=== PATIENT | female | born 1955 | race African-American/Black ===

== ENCOUNTER 2017-06-16 10:03 | Emergency (ER) | payer OTHER ==
[2017-06-16 11:14] LABS: Bilirubin Negative (Negative); Blood, Urine Negative (Negative); Clarity CLOUDY (Clear); Glucose, Urine (Dipstick) Negative (Negative); Leukocyte Large (Negative); Nitrite Negative (Negative); Protein, Urine (Dipstick) Negative (Neg-Trace); Specific Gravity, Urine 1.017 (1.002-1.036); pH, Urine 7.5 (5.0-9.0)
[2017-06-16 11:24] LABS: Bacteria/HPF 2+ HPF (None Seen); Hyaline Casts/LPF 0-3 HYALINE CAST LPF (0-3 Hyaline); Pathc Cast-AUWi Flag 0.94 (0-2.49); RBC/HPF 0-3 HPF (0-3)
[2017-06-16] MEDS ORDERED: Cyclobenzaprine 10 MG TAB ONE (12:25)
== END 2017-06-16 13:20 | disposition home or self-care (01) ==
LOC: ERS 10:03
DX: N39.0 Urinary tract infection, site not specified (principal); G89.29 Other chronic pain; M54.5 Low back pain; E11.9 Type 2 diabetes mellitus without complications; I10 Essential (primary) hypertension; J45.909 Unspecified asthma, uncomplicated; F32.9 Major depressive disorder, single episode, unspecified
CPT/HCPCS: 81003; 81015; 96372; J2270

== ENCOUNTER 2017-08-14 08:12 | Inpatient (IN) | payer OTHER ==
[2017-08-14 09:32] LABS: #Basophils 0.1 thou/uL (0.0-0.2); #Eosinphils 0.1 thou/uL (0.0-0.7); #Lymphocytes 1.9 thou/uL (1.20-3.40); #Monocytes 2.5 thou/uL (0.11-0.59); #Neutrophils 13.3 thou/uL (1.40-6.50); %Basophils 0.3 % (0.0-1.0); %Eosinophils 0.3 % (0.0-10.0); %Lymphocytes 10.6 % (21.0-51.0); %Monocytes 13.9 % (0.0-10.0); %Neutrophils 74.9 % (42.0-75.0); Mean Corpuscular Hemoglobin 31.8 pg (27.0-31.0); Mean Corpuscular Volume 96.3 fl (81.0-99.0); Mean Platelet Volume 8.7 fL (7.4-10.4); Platelet Count 229 thou/uL (130-400); RBC Distribution Width 11.5 % (11.5-14.5); Red Blood Cell (RBC) Count 3.77 mill/uL (4.20-5.40); White Blood Cell (WBC) Count 17.7 thou/uL (4.8-10.8)
[2017-08-14 09:52] LABS: ALT (SGPT) 16 U/L (8-55); AST (SGOT) 27 U/L (5-34); Albumin 4.2 g/dL (3.4-4.8); Alkaline Phosphatase 95 U/L (40-150); Anion Gap 13 mmol/L (10-20); BUN (Urea Nitrogen) 11 mg/dL (9.8-20.1); Bilirubin, Total 1.2 mg/dL (0.2-1.2); Calc. Creatinine Clearance 0 mL/min (70-130); Calcium 9.8 mg/dL (7.8-10.44); Carbon Dioxide 20 mmol/L (23-31); Chloride 108 mmol/L (98-107); Estimated GFR-MDRD 84; Globulin 3.2 g/dL (2.4-3.5); Glucose 187 mg/dL (80-115); Potassium 3.5 mmol/L (3.5-5.1); Protein, Total 7.4 g/dL (6.0-8.3); Sodium 137 mmol/L (136-145)
--- NOTE | 2017-08-14 10:37 | ULT ---
ULTRASOUND WITH DOPPLER DUPLEX VENOUS LOWER EXTREMITY LEFT: DATE: 08/14/2017 HISTORY: A 62-year-old female with left lower extremity pain for one day. TECHNIQUE: Color flow Doppler, spectral waveform analysis of pulsed Doppler, and jarrell-scale imaging with samantha dario and augmentation were used to evaluate the left common femoral, femoral, popliteal, posterior ti bial, and superficial femoral, veins, and the proximal portions of the profunda femoral and greater s aphenous veins. FINDINGS: There is normal compressibility, demonstration of blood flow by color Doppler and pulsed Doppler, and response to augmentation, in all interrogated veins. IMPRESSION: Negative. No deep vein thrombosis in the left lower extremity. jm[] POS: [facility]
[2017-08-14] MEDS ORDERED: Morphine 4 MG/ML VIAL ONE (10:50)
[2017-08-14] MEDS ORDERED: Clindamycin/D5W 600 mg/50 ml Premix Bag ONE (10:50)
--- NOTE | 2017-08-14 10:55 | RAD ---
LEFT ANKLE 3 VIEWS: HISTORY: Pain. COMPARISON: None. FINDINGS: No fracture. No malalignment. Mild lateral malleolar edema. IMPRESSION: No acute fracture or malalignment. POS: [facility]
[2017-08-14] MEDS ORDERED: Ondansetron ODT 4 MG TAB SL PRN (13:20)
[2017-08-14] MEDS ORDERED: Ondansetron HCl/PF 4 MG/2 ML Vial IVP PRN (13:20)
[2017-08-14] MEDS ORDERED: HYDROcodone/Acetaminophen 5/325 mg Tablet PO PRN (13:21)
[2017-08-14 13:47] VITALS: BMI 21.2
[2017-08-14] MEDS: Sodium Chloride 0.9% 1,000 ML IV SCH (15:28)
[2017-08-14] MEDS: Ketorolac Tromethamine 30 MG/ML VIAL IVP SCH ×2 (15:42→23:44)
--- NOTE | 2017-08-14 15:48 | HP ---
REASON FOR ADMISSION: Left ankle pain. HISTORY OF PRESENT ILLNESS: This is a pleasant female with history of multiple medical problems to i nclude multiple knee surgeries in the past as well as hypertension, hyperlipidemia, and diabetes. She presents with a 2-day history of left ankle pain and swelling. She presented in the emergency ro om where she could barely walk. She did have a CBC which revealed a white blood cell of 18,000. Her x-ray was unremarkable. For this reason, she was felt she needed to be admitted for IV antibiotic t reatment. She denies any chest, arm or back pain. She also denies any PND, orthopnea or palpitations. PAST MEDICAL HISTORY: 1. Hypertension. 2. Hyperlipidemia. 3. NIDDM. 4. Chronic back pain. 5. Chronic knee pain. 6. Herniated disk. 7. Asthma. 8. Anxiety. 9. History of chronic sinusitis and bronchitis. 10. Depression. PAST SURGICAL HISTORY: 1. Right knee surgery with numerous scopes to that knee. 2. Hysterectomy. 3. Cholecystectomy. 4. Back surgery. ALLERGIES: PENICILLIN. MEDICATIONS: None. FAMILY HISTORY: Noncontributory. SOCIAL HISTORY: She is an ex-smoker. She does not drink alcohol. She is not . REVIEW of SYSTEM: GENERAL: Admits to weakness, fatigue. No fever or chills. HEENT: No diplopia, amaurosis fugax, tinnitus, sore throat, or hoarseness. Cardiovascular: No chest, arm, or back pain. Pulmonary: No PE, cough, or hemoptysis. GI: No GI bleed, constipation, diarrhea. Genitourinary: No dysuria, nocturia, oliguria, or polyuria. Endocrine: No polyphagia, polydipsia, or heat or col d intolerance. Musculoskeletal: Admits to arthralgias, especially in the knee and ankle. No lympha denopathy. Neurologic: No history of TIA or seizure. All systems are negative. PHYSICAL EXAMINATION: GENERAL: Pleasant female who appears to be in acute distress. VITAL SIGNS: Her blood pressure is 150/70, pulse 80, respiration rate 18. She is afebrile. NECK: Supple with no increased JVP or carotid bruit. Carotid had good upstroke with no thyromegaly. COR: Regular rate and rhythm. CHEST: Symmetrical. Clear to auscultation and percussion. ABDOMEN: Soft, nontender with normoactive bowel sounds. No bruit. EXTREMITIES: No edema or cyanosis. Palpable pedal pulses. SKIN: There is no evidence of ulceration, lesion, or rash. Her left ankle is red and swollen. It i s warm to touch. NEUROLOGIC: She is awake, alert, and oriented to person, place, and time. LABORATORY DATA: White blood cells 17.7, H&H is 12.0 and 36.4, platelet 229, glucose 180. C-reactiv e protein is 9.33. X-ray normal. ASSESSMENT: 1. Left ankle cellulitis. 2. Diabetes. 3. Hypertension. 4. Hyperlipidemia. 5. Chronic back pain. PLAN: 1. The patient will be admitted where antibiotics will be continued. We will also ask Ortho to see the patient in consultation. 2. We will resume home medications once we would like what they are. 3. We will check blood sugars a.c. and at bedtime and use sliding scale per protocol. 4. Pain medication has already been ordered and will follow up with lab in the morning. This is ZELALEM Pelayo-Shanika dictating for Dr. Kota Aguilar.
--- NOTE | 2017-08-14 16:10 | RAD ---
2 VIEWS CHEST: Date: 08/14/17 COMPARISON: 11/18/16. HISTORY: Bronchitis. FINDINGS: Normal cardiac silhouette. There is atherosclerosis of the ascending thoracic aorta. Pulmonary vessel s and hilum are normal. Right lung and costophrenic angle clear. Obscuration of lateral left hemidiap hragm. Additional increased opacity in the posterior left hemithorax on the lateral projection. Multi lobar pneumonia suspected. No pneumothorax. IMPRESSION: Multilobar pneumonia involving the lingula and left lower lobe. POS: [facility]
[2017-08-14] MEDS ORDERED: hydrOXYzine 25 MG TAB PO PRN (19:52)
[2017-08-14 19:53] LABS: Bilirubin Small (Negative); Blood, Urine Negative (Negative); Clarity CLOUDY (Clear); Glucose, Urine (Dipstick) Negative (Negative); Leukocyte Small (Negative); Nitrite Negative (Negative); Protein, Urine (Dipstick) Negative (Neg-Trace); Specific Gravity, Urine 1.023 (1.002-1.036); pH, Urine 5.5 (5.0-9.0)
[2017-08-14 19:55] LABS: Bacteria/HPF 1+ HPF (None Seen)
[2017-08-14] MEDS ORDERED: Dextrose 50% Abboject 50 ML SYRINGE IVP PRN (19:58)
[2017-08-14] MEDS ORDERED: Insulin Regular 300 UNITS/3 ML VIAL SC PRN (19:58)
[2017-08-14] MEDS ORDERED: Dextrose 5% in Water 1,000 ML IV PRN (19:58)
[2017-08-14 20:12] LABS: Pathc Cast-AUWi Flag 3.92 (0-2.49)
[2017-08-14 20:20] LABS: Hyaline Casts/LPF 4-6 HYALINE CAST LPF (0-3 Hyaline); Other Casts/LPF None Seen LPF (0-3 Hyaline)
--- NOTE | 2017-08-14 20:56 | CON ---
DATE OF CONSULTATION: 08/14/2017 CHIEF COMPLAINT: Ankle pain. HISTORY OF PRESENT ILLNESS: Ms. Sun is a 62-year-old female. She has been moving from a [place]sta [place] apartment to an upstairs apartment. She has been going up and down the stairs and lifting boxes, etc. She began developing pain in her foot and ankle yesterday. This worsened through the day. Morenita rosario woke up somewhat better today, but still having pain. She presented to the emergency department. She has also been treated recently for a lung infection with an oral antibiotic. She complains of in continence and urinary frequency as well. This has not been treated. Her ankle, she noticed was swo llen and somewhat red. She denies any fevers or chills. PAST MEDICAL HISTORY: Positive for chronic pain, herniated disk, degenerative disk disease, osteoart hritis, hypertension, asthma. PAST SURGICAL HISTORY: Hysterectomy, previous right total knee arthroplasty, previous lumbar back mckinnon rgery. PSYCHIATRIC HISTORY: Includes depression. SOCIAL HISTORY: The patient denies alcohol use. She denies tobacco or drug use. Family is with her at the bedside. REVIEW OF SYSTEMS: Positive for left ankle pain, otherwise negative. PHYSICAL EXAMINATION: VITAL SIGNS: Stable. Blood pressure is 184/76, pulse is 78, oxygen saturation 99%, respiratory 18, temperature is 97.1. GENERAL: She is lying supine, alert, talkative, no apparent distress. RESPIRATORY: Breathing comfortably. ABDOMEN: Soft, nontender. MUSCULOSKELETAL: The patient's left lower extremity has faint erythema. There is faint warmth. She is able to flex and extend the ankle without significant difficulty. She has pain to palpation over the posterior and lateral aspect of the ankle. There is mild edema near the retrocalcaneal bursa. She has intact sensation, palpable pulse. Two second capillary refill. LABORATORY DATA: Her ESR is 34. Her white blood cell count is elevated at 17.7. CRP was 9.33. IMAGES: Ankle x-rays are negative for acute findings. IMPRESSION: Ankle pain with an elevated white blood cell count. PLAN: At this point, the patient's ankle condition appears to be an Achilles insertional tendinitis or retrocalcaneal bursitis. I think this is from overuse likely from climbing stairs and moving boxe s. She has a white blood cell count, which is elevated, but this could be from her pulmonary source or a urinary tract infection. She will need further workup including chest x-ray as well as urinalys is. We will order Toradol to treat her tendinitis. If this does not help or she worsens as possible her ankle does have an infection, we will continue to follow and check her progress tomorrow.
[2017-08-14] MEDS: cefTRIAXone\\ROCEPHIN 1 GM, Syringe 0.4 ML in Sterile Water 9.6 ML SLOW IVP SCH (21:26)
[2017-08-14] MEDS: Insulin Detemir 100 UNITS/ML 30 UNITS in Pre-Filled Syringe 1 EACH SC SCH (21:27)
[2017-08-14] MEDS: HYDROcodone/Acetaminophen 5/325 mg Tablet PO PRN (21:28)
[2017-08-14] MEDS: Amitriptyline HCl 25 MG TAB PO SCH (21:29)
[2017-08-14] MEDS: Cyclobenzaprine 10 MG TAB PO SCH (21:29)
[2017-08-14] MEDS: cloNIDine 0.1 MG TAB PO SCH (21:30)
[2017-08-14] MEDS: Promethazine HCl 6.25 MG/5 ML Syrup PO PRN (22:19)
[2017-08-14] MEDS: Azithromycin 500 MG in Sodium Chloride 0.9% 250 ML 250 ML IVPB SCH (22:20)
[2017-08-15] MEDS: Sodium Chloride 0.9% 1,000 ML IV SCH (00:28)
[2017-08-15 04:46] LABS: #Eosinphils 0.1 thou/uL (0.0-0.7); #Lymphocytes 2.2 thou/uL (1.20-3.40); #Monocytes 1.7 thou/uL (0.11-0.59); #Neutrophils 7.4 thou/uL (1.40-6.50); %Basophils 0.4 % (0.0-1.0); %Eosinophils 0.8 % (0.0-10.0); %Lymphocytes 18.9 % (21.0-51.0); %Monocytes 14.5 % (0.0-10.0); %Neutrophils 65.4 % (42.0-75.0); Hemoglobin 10.9 g/dL (12.0-16.0); Mean Corpuscular HGB CONC 32.9 g/dL (32.0-36.0); Mean Corpuscular Hemoglobin 31.7 pg (27.0-31.0); Mean Corpuscular Volume 96.5 fl (81.0-99.0); Mean Platelet Volume 8.7 fL (7.4-10.4); Platelet Count 200 thou/uL (130-400); RBC Distribution Width 11.5 % (11.5-14.5); Red Blood Cell (RBC) Count 3.43 mill/uL (4.20-5.40); White Blood Cell (WBC) Count 11.4 thou/uL (4.8-10.8)
[2017-08-15] MEDS: cloNIDine 0.1 MG TAB PO SCH (05:00)
[2017-08-15] MEDS: Ketorolac Tromethamine 30 MG/ML VIAL IVP SCH ×2 (05:01→12:22)
[2017-08-15 05:15] LABS: ALT (SGPT) 30 U/L (8-55); AST (SGOT) 38 U/L (5-34); Albumin 3.4 g/dL (3.4-4.8); Alkaline Phosphatase 118 U/L (40-150); Anion Gap 10 mmol/L (10-20); BUN (Urea Nitrogen) 8 mg/dL (9.8-20.1); Bilirubin, Total 0.5 mg/dL (0.2-1.2); Calc. Creatinine Clearance 93 mL/min (70-130); Calcium 9.2 mg/dL (7.8-10.44); Carbon Dioxide 22 mmol/L (23-31); Chloride 114 mmol/L (98-107); Estimated GFR-MDRD Greater than 90; Globulin 2.7 g/dL (2.4-3.5); Glucose 75 mg/dL (80-115); Potassium 3.8 mmol/L (3.5-5.1); Protein, Total 6.1 g/dL (6.0-8.3); Sodium 142 mmol/L (136-145)
[2017-08-15] MEDS ORDERED: Benzonatate 100 MG CAP PO PRN (07:41)
[2017-08-15] MEDS: LUBIPROSTONE 24 MCG PO SCH ×2 (09:23→16:44)
[2017-08-15] MEDS: cloNIDine 0.2 MG TAB PO SCH ×2 (09:24→21:38)
[2017-08-15] MEDS: guaiFENesin ER 600 MG TAB PO SCH ×2 (09:24→21:39)
[2017-08-15] MEDS: Alogliptin 25 MG TAB PO SCH (09:26)
[2017-08-15] MEDS: Zolpidem Tartrate 5 MG TAB PO SCH (21:35)
[2017-08-15] MEDS: HYDROcodone/Acetaminophen 5/325 mg Tablet PO PRN (21:35)
[2017-08-15] MEDS: Amitriptyline HCl 25 MG TAB PO SCH (21:40)
[2017-08-15] MEDS: Cyclobenzaprine 10 MG TAB PO SCH (21:40)
[2017-08-15] MEDS: cefTRIAXone\\ROCEPHIN 1 GM, Syringe 0.4 ML in Sterile Water 9.6 ML SLOW IVP SCH (21:41)
[2017-08-15] MEDS: Insulin Detemir 100 UNITS/ML 30 UNITS in Pre-Filled Syringe 1 EACH SC SCH (21:41)
[2017-08-15] MEDS: Azithromycin 500 MG in Sodium Chloride 0.9% 250 ML 250 ML IVPB SCH (21:41)
[2017-08-16 05:51] LABS: #Eosinphils 0.1 thou/uL (0.0-0.7); #Lymphocytes 2.5 thou/uL (1.20-3.40); #Monocytes 1.3 thou/uL (0.11-0.59); #Neutrophils 6.4 thou/uL (1.40-6.50); %Basophils 0.2 % (0.0-1.0); %Lymphocytes 24.2 % (21.0-51.0); %Monocytes 12.7 % (0.0-10.0); %Neutrophils 61.8 % (42.0-75.0); Hemoglobin 10.4 g/dL (12.0-16.0); Mean Corpuscular HGB CONC 32.6 g/dL (32.0-36.0); Mean Corpuscular Hemoglobin 31.2 pg (27.0-31.0); Mean Corpuscular Volume 95.7 fl (81.0-99.0); Mean Platelet Volume 8.4 fL (7.4-10.4); Platelet Count 232 thou/uL (130-400); RBC Distribution Width 11.5 % (11.5-14.5); Red Blood Cell (RBC) Count 3.33 mill/uL (4.20-5.40); White Blood Cell (WBC) Count 10.3 thou/uL (4.8-10.8)
[2017-08-16 06:06] LABS: Anion Gap 9 mmol/L (10-20); BUN (Urea Nitrogen) 10 mg/dL (9.8-20.1); Calc. Creatinine Clearance 99 mL/min (70-130); Calcium 9.4 mg/dL (7.8-10.44); Carbon Dioxide 22 mmol/L (23-31); Chloride 114 mmol/L (98-107); Estimated GFR-MDRD Greater than 90; Glucose 91 mg/dL (80-115); Potassium 3.9 mmol/L (3.5-5.1); Sodium 141 mmol/L (136-145)
[2017-08-16] MEDS: cloNIDine 0.2 MG TAB PO SCH ×2 (08:56→20:46)
[2017-08-16] MEDS: guaiFENesin ER 600 MG TAB PO SCH ×2 (08:56→20:46)
[2017-08-16] MEDS: Alogliptin 25 MG TAB PO SCH (08:57)
[2017-08-16] MEDS: LUBIPROSTONE 24 MCG PO SCH ×2 (08:57→17:06)
[2017-08-16] MEDS: HYDROcodone/Acetaminophen 5/325 mg Tablet PO PRN ×2 (09:01→20:48)
--- NOTE | 2017-08-16 09:23 | PRG ---
DATE OF SERVICE: 08/16/2017 SUBJECTIVE: The patient had a good night; however, her left knee is causing her a lot of problems. She is known to have a history of degenerative joint disease in both knees. The patient still has a barking cough. OBJECTIVE: VITAL SIGNS: Blood pressure is 195/87, this is before blood pressure medication; pulse is 63. She i s afebrile. NECK: Supple. No JVP or carotid bruit. Carotid had good upstroke, no thyromegaly. COR: Regular rhythm. CHEST: Symmetrical. Clear to auscultation and percussion in the upper lobes. Scattered crackles an d wheezing in the lower lobes. ABDOMEN: Soft, nontender, normoactive bowel sounds. No bruit or organomegaly. EXTREMITIES: She had a left knee is swollen and tender. Her left ankle is still red and tender. NEUROLOGIC: She is awake, alert, and oriented to person, place, and time. ASSESSMENT: 1. Left ankle cellulitis. 2. Pneumonia. 3. Urinary tract infection. 4. Hypertension. 5. Multiple medical problems. PLAN: We will continue same current medication regime until cultures are back. We will order left k nee x-ray. We will get out of bed with assist. We will ask Physical Therapy to see the patient in c onsultation. We will change IV fluid rate to 50 mL an hour as well. The patient verbalized understa nding and all questions answered to satisfaction.
[2017-08-16] MEDS: Nebivolol HCl 5 MG TAB PO SCH (10:43)
--- NOTE | 2017-08-16 15:25 | RAD ---
LEFT KNEE: Date: 08/16/17 COMPARISON: None. HISTORY: Left knee pain. FINDINGS: Three views of the left knee provided. There is enthesophyte formation at the insertion of the julita ceps tendon. No knee joint effusion, fracture, or dislocation seen. IMPRESSION: No acute osseous abnormality. POS: [facility]
[2017-08-16] MEDS: cloNIDine 0.1 MG TAB PO PRN (17:26)
[2017-08-16] MEDS: Azithromycin 500 MG in Sodium Chloride 0.9% 250 ML 250 ML IVPB SCH (20:45)
[2017-08-16] MEDS: Insulin Detemir 100 UNITS/ML 30 UNITS in Pre-Filled Syringe 1 EACH SC SCH (20:45)
[2017-08-16] MEDS: cefTRIAXone\\ROCEPHIN 1 GM, Syringe 0.4 ML in Sterile Water 9.6 ML SLOW IVP SCH (20:45)
[2017-08-16] MEDS: Cyclobenzaprine 10 MG TAB PO SCH (20:47)
[2017-08-16] MEDS: Amitriptyline HCl 25 MG TAB PO SCH (20:47)
[2017-08-16] MEDS: Zolpidem Tartrate 5 MG TAB PO SCH (20:48)
[2017-08-17] MEDS: Nebivolol HCl 5 MG TAB PO SCH (08:09)
[2017-08-17] MEDS: LUBIPROSTONE 24 MCG PO SCH ×2 (08:10→16:24)
[2017-08-17] MEDS: cloNIDine 0.2 MG TAB PO SCH ×2 (08:10→20:24)
[2017-08-17] MEDS: Azithromycin 250 MG TAB PO SCH (08:10)
[2017-08-17] MEDS: Sulfameth/Trimethoprim DS 800-160mg TAB PO SCH ×2 (08:11→20:21)
[2017-08-17] MEDS: Alogliptin 25 MG TAB PO SCH (08:11)
[2017-08-17] MEDS: guaiFENesin ER 600 MG TAB PO SCH ×2 (08:11→20:23)
[2017-08-17] MEDS: Promethazine HCl 6.25 MG/5 ML Syrup PO PRN (08:14)
[2017-08-17] MEDS: HYDROcodone/Acetaminophen 5/325 mg Tablet PO PRN ×2 (10:06→22:42)
--- NOTE | 2017-08-17 12:49 | PRG ---
DATE OF SERVICE: 08/17/2017 This is ISAC Pelayo dictating a progress note for Kota Aguilar M.D. The patient had a good night. Unfortunately, she is very upset this morning. Her IV was bad and rica se took it out. The nurse called me last night and stated that the patient refused an IV. However, when talking to the patient this morning, she said that was a total lie. She did not refuse an IV an d the nurse never came back in her room. The patient is stable to go home. Her urine culture is nor mal. Her blood culture is normal. She has no fever. Her white blood cell count is normal. Her blo od pressure is 150 after given her morning medications. Her lungs sound better. However, the patien t is adamant she is not going home. I have explained to her that insurance may not be paying for her to stay one more night. She says she does not care and she was going to stay. I did relay this mes elida onto the charge nurse. The charge nurse will get hold of pillowcase turner and go from there. In the meantime, we will continue the same p.o. medications and wait to hear from the nurse or atomic physics professor.
[2017-08-17] MEDS: cloNIDine 0.1 MG TAB PO PRN ×2 (16:24→23:46)
[2017-08-17] MEDS: Zolpidem Tartrate 5 MG TAB PO SCH (20:21)
[2017-08-17] MEDS: Amitriptyline HCl 25 MG TAB PO SCH (20:24)
[2017-08-17] MEDS: Insulin Detemir 100 UNITS/ML 30 UNITS in Pre-Filled Syringe 1 EACH SC SCH (20:26)
[2017-08-17] MEDS: Cyclobenzaprine 10 MG TAB PO SCH (20:28)
[2017-08-18] MEDS: cloNIDine 0.1 MG TAB PO PRN ×4 (05:56→23:49)
[2017-08-18] MEDS ORDERED: SUMAtriptan Succinate 50 MG TAB PO SCH (06:30)
[2017-08-18] MEDS ORDERED: Ondansetron HCl/PF 4 MG/2 ML Vial SLOW IVP PRN (06:31)
[2017-08-18] MEDS ORDERED: Ketorolac Tromethamine 60 MG/2 ML VIAL IM PRN (08:30)
[2017-08-18] MEDS: Azithromycin 250 MG TAB PO SCH (09:02)
[2017-08-18] MEDS: cloNIDine 0.2 MG TAB PO SCH ×2 (09:04→21:50)
[2017-08-18] MEDS: Alogliptin 25 MG TAB PO SCH (09:04)
[2017-08-18] MEDS: Nebivolol HCl 5 MG TAB PO SCH (09:04)
[2017-08-18] MEDS: LUBIPROSTONE 24 MCG PO SCH ×2 (09:04→16:04)
[2017-08-18] MEDS: guaiFENesin ER 600 MG TAB PO SCH ×2 (09:04→21:44)
[2017-08-18] MEDS: Sulfameth/Trimethoprim DS 800-160mg TAB PO SCH ×2 (09:04→21:44)
[2017-08-18] MEDS ORDERED: Ondansetron ODT 8 MG TAB PO SCH (10:00)
[2017-08-18] MEDS: HYDROcodone/Acetaminophen 5/325 mg Tablet PO PRN (16:04)
[2017-08-18] MEDS: Promethazine HCl 6.25 MG/5 ML Syrup PO PRN (18:38)
[2017-08-18] MEDS ORDERED: hydrALAZINE 25 MG TAB PO SCH (19:00)
[2017-08-18] MEDS: Insulin Detemir 100 UNITS/ML 30 UNITS in Pre-Filled Syringe 1 EACH SC SCH (21:42)
[2017-08-18] MEDS: Zolpidem Tartrate 5 MG TAB PO SCH (21:44)
[2017-08-18] MEDS: Cyclobenzaprine 10 MG TAB PO SCH (21:44)
[2017-08-18] MEDS: Amitriptyline HCl 25 MG TAB PO SCH (21:45)
[2017-08-19] MEDS: HYDROcodone/Acetaminophen 5/325 mg Tablet PO PRN (04:38)
[2017-08-19] MEDS ORDERED: Ketorolac Tromethamine 30 MG/ML VIAL IM SCH (08:45)
[2017-08-19] MEDS ORDERED: hydrALAZINE 25 MG TAB PO SCH (09:00)
[2017-08-19] MEDS: LUBIPROSTONE 24 MCG PO SCH (09:23)
[2017-08-19] MEDS: cloNIDine 0.2 MG TAB PO SCH (09:23)
[2017-08-19] MEDS: guaiFENesin ER 600 MG TAB PO SCH (09:24)
[2017-08-19] MEDS: Sulfameth/Trimethoprim DS 800-160mg TAB PO SCH (09:24)
[2017-08-19] MEDS: Alogliptin 25 MG TAB PO SCH (09:25)
[2017-08-19] MEDS: Azithromycin 250 MG TAB PO SCH (09:25)
--- NOTE | 2017-08-19 09:37 | PQF ---
CLINICAL DOCUMENTATION IMPROVEMENT CLARIFICATION FORM: ICD-10 Updated PLEASE DO AN ADDENDUM TO THE PROGRESS NOTE WITH ANY DOCUMENTATION UPDATES OR ADDITIONS AND CARRY THROUGH TO DC SUMMARY. THANK YOU. DATE: 08/19 ATTN: DR. WALLY DILLARD Please exercise your independent, professional judgment in responding to the clarification form. Clinical indicators are provided on the bottom of this form for your review Please check appropriate box(s): [ ] Pneumonia secondary to (specify organism / underlying disease) [ ] Simple Pneumonia (community acquired - nosocomial) [ x ] Bronchopneumonia [ ] Pneumonia of unknown etiology [ ] Other diagnosis [ ] Unable to determine For continuity of documentation, please document condition throughout progress notes and discharge summary. Thank You. CLINICAL INDICATORS - SIGNS / SYMPTOMS / LABS PHYSICIAN PN DATED 08/15 - CLINICAL PNEUMONIA NURSING TECHNICIAN-C PN DATED 08/16: IMPRESSION: 2) PNEUMONIA CXR 08/14 - MULTILOBAR PNEUMONIA INVOLVING THE LINGULA & LLL WBC: 17.7 (ON ADMIT, 08/14) RISK FACTORS: HX ASTHMA HX CHRONIC SINUSITIS & BRONCHITIS TREATMENTS: IV ANTIBIOTICS (ZITHROMAX & ROCEPHIN 08/14 - ; CHANGED TO PO ZITHROMAX & BACTRIM DS 08/17 - PRESENT) RESPIRATORY TREATMENT (DUONEB 08/14 - PRESENT) THANK YOU! Janis (This form is maintained as a part of the permanent medical record) 2014 [employer]. All Rights Reserved Janis Sharp RN, BSN [email or web address] Office: [phone] [facility]
[2017-08-19] MEDS: Nebivolol HCl 5 MG TAB PO SCH (11:37)
[2017-08-19 13:24] VITALS: TEMP 98.6
[2017-08-19 13:27] VITALS: BP 148/72
--- NOTE | 2017-08-19 15:17 | DIS ---
Ange Smith, ZELALEM-Shanika, dictating for Kota Aguilar M.D. FINAL DIAGNOSES: 1. Pneumonia. 2. Migraine headache. 3. Urinary tract infection. 4. Left ankle cellulitis. 5. Diabetes. 6. Multiple medical problems. COMPLICATIONS: None. PROCEDURES: None. CONSULTANTS: She did have Dr. Harp to come by to look at her left ankle. He felt there is no r alexy to do the MRI at this time. HOSPITAL COURSE: This is a pleasant female with multiple medical problems, who presents to the [facility] with acute left ankle pain. She was found to have cellulitis and admitted to the hospital for IV antibiotic. She did have a chest x-ray and a UA and found to have pneumonia and UTI. Her antibioti cs were changed accordingly. Her home medications were resumed. Dr. Harp did come and see the patient in consultation and felt like she did not need the MRI of her ankle. The ankle x-ray was nor mal. She also complained of left knee pain and had a left knee x-ray that was unremarkable. Kris Mccartney did see the patient in consultation. Her IV fluids were eventually discontinued. Her home medications were adjusted accordingly. The patient's hospital course was unremarkable. Her left an kle was better. Her urine culture came back negative. Her blood culture came back negative. Her est x-ray showed improvement. She was discharged home on 08/19/2017 in stable condition. DIET: Regular, diabetic diet. ACTIVITIES: As tolerated by the patient. DISCHARGE MEDICATIONS: 1. Elavil 50 mg every day. 2. Omnicef 300 mg twice a day. 3. Clonidine 0.1 mg b.i.d. 4. Flexeril 10 mg every day p.r.n. 5. Nexium 40 mg every day. 6. Atarax 25 mg 4 times a day. 7. Levemir 30 units daily. 8. Tradjenta 5 mg every day. 9. Amitiza 24 mcg b.i.d. with meals. 10. Bystolic 10 mg every day. 11. Ambien 10 mg at bedtime p.r.n. 12. Z-Anthony, take as directed. 13. Clonidine 0.2 mg b.i.d. 14. Mucinex [id number]. 15. Bactrim-DS b.i.d. 16. Tessalon perles 200 mg q.6 hours p.r.n. 17. Tylenol No.3 one to two q.4-6 hours p.r.n. pain, #30. FOLLOWUP: She will see Ange in 1 week or prior to that if she has any questions. The total time spent with the patient, reviewing the chart and dictating the discharge summary was 30 minutes.
== END 2017-08-19 13:51 | disposition home or self-care (01) | DRG 557 ==
LOC: ERS 08:12 → OBSVTOIN 12:53 → 2SW 12:53 → ONC 08-15 17:10
PROVIDERS: ADMIT Specialist; ATTEND Specialist
DX: M76.62 Achilles tendinitis, left leg (principal); J18.0 Bronchopneumonia, unspecified organism; L03.116 Cellulitis of left lower limb; N39.0 Urinary tract infection, site not specified; M70.872 Other soft tissue disorders related to use, overuse and pressure, left ankle and foot; Y93.89 Activity, other specified; E11.9 Type 2 diabetes mellitus without complications; I10 Essential (primary) hypertension; E78.5 Hyperlipidemia, unspecified; M54.9 Dorsalgia, unspecified; G89.29 Other chronic pain; G43.909 Migraine, unspecified, not intractable, without status migrainosus; M77.52 Other enthesopathy of left foot and ankle
CPT/HCPCS: 36415; 36416; 71046; 80048; 80053; 81001; 85025; 85652; 86140; 87040; 87086; 90471; 90732; 93005; 94640; 96365; 96375; A4216; G0009; G8978-GP-CN; G8979-GP-CK; J0456; J0696; J1815; J1885; J2270; J3490; J7050; J7620

== ENCOUNTER 2017-11-10 09:06 | Emergency (ER) | payer OTHER ==
--- NOTE | 2017-11-10 10:11 | RAD ---
CHEST 1 VIEW PORTABLE: Date: 11/10/17 COMPARISON: 10/30/15. HISTORY: Cough. FINDINGS: No pneumothorax, pleural fluid, focal consolidation, or alveolar edema. Heart and mediastinal contour s are stable. IMPRESSION: No acute findings. POS: [facility]
[2017-11-10] MEDS ORDERED: methylPREDNISolone Sod Succ/PF 125 MG/2 ML VIAL ONE (10:38)
[2017-11-10] MEDS ORDERED: cloNIDine 0.1 MG TAB ONE (11:46)
[2017-11-10] MEDS ORDERED: Albuterol Sulfate 2.5 mg/0.5 ml Neb ONE ×2 (12:03→13:30)
[2017-11-10] MEDS ORDERED: Ketorolac Tromethamine 30 MG/ML VIAL ONE (12:18)
[2017-11-10] MEDS ORDERED: Benzonatate 100 MG CAP ONE (12:18)
[2017-11-10] MEDS ORDERED: Magnesium Sulfate 2 GM/100 ML BAG ONE (12:55)
[2017-11-10 13:11] LABS: #Eosinphils 0.1 thou/uL (0.0-0.7); #Monocytes 0.4 thou/uL (0.11-0.59); #Neutrophils 10.1 thou/uL (1.40-6.50); %Basophils 0.1 % (0.0-1.0); %Eosinophils 0.4 % (0.0-10.0); %Lymphocytes 8.2 % (21.0-51.0); %Monocytes 3.5 % (0.0-10.0); %Neutrophils 87.8 % (42.0-75.0); Hemoglobin 12.4 g/dL (12.0-16.0); Mean Corpuscular HGB CONC 33.2 g/dL (32.0-36.0); Mean Corpuscular Hemoglobin 31.9 pg (27.0-31.0); Mean Corpuscular Volume 96.3 fL (78.0-98.0); Mean Platelet Volume 8.5 fL (7.4-10.4); Platelet Count 172 thou/uL (130-400); RBC Distribution Width 12.2 % (11.5-14.5); Red Blood Cell (RBC) Count 3.88 mill/uL (4.20-5.40); White Blood Cell (WBC) Count 11.6 thou/uL (4.8-10.8)
[2017-11-10] MEDS ORDERED: Albuterol Sulfate 2.5 mg/3 ml Neb ONE (13:30)
[2017-11-10 13:37] LABS: ALT (SGPT) 13 U/L (8-55); AST (SGOT) 12 U/L (5-34); Albumin 4.4 g/dL (3.4-4.8); Alkaline Phosphatase 75 U/L (40-150); Anion Gap 14 mmol/L (10-20); BUN (Urea Nitrogen) 9 mg/dL (9.8-20.1); Bilirubin, Total 0.7 mg/dL (0.2-1.2); Calc. Creatinine Clearance 0 mL/min (70-130); Calcium 10.1 mg/dL (7.8-10.44); Carbon Dioxide 25 mmol/L (23-31); Chloride 108 mmol/L (98-107); Estimated GFR-MDRD Greater than 90; Globulin 2.8 g/dL (2.4-3.5); Glucose 174 mg/dL (80-115); Potassium 3.6 mmol/L (3.5-5.1); Protein, Total 7.2 g/dL (6.0-8.3); Sodium 143 mmol/L (136-145)
== END 2017-11-10 16:57 | disposition home or self-care (01) ==
LOC: ERS 09:06
DX: J45.901 Unspecified asthma with (acute) exacerbation (principal); E11.9 Type 2 diabetes mellitus without complications; I10 Essential (primary) hypertension; F32.9 Major depressive disorder, single episode, unspecified; Z79.899 Other long term (current) drug therapy; Z79.4 Long term (current) use of insulin
CPT/HCPCS: 36415; 71045; 80053; 83880; 85025; 94640; 96365; 96375; J1885; J2930; J3475; J7611; J7620

== ENCOUNTER 2017-12-01 14:28 | Emergency (ER) | payer OTHER ==
[2017-12-01] MEDS ORDERED: Ketorolac Tromethamine 60 MG/2 ML VIAL ONE (15:22)
[2017-12-01 15:46] LABS: #Basophils 0.1 thou/uL (0.0-0.2); #Eosinphils 0.1 thou/uL (0.0-0.7); #Lymphocytes 2.9 thou/uL (1.20-3.40); #Monocytes 1.6 thou/uL (0.11-0.59); #Neutrophils 8.6 thou/uL (1.40-6.50); %Basophils 0.7 % (0.0-1.0); %Eosinophils 0.9 % (0.0-10.0); %Lymphocytes 21.5 % (21.0-51.0); %Neutrophils 64.8 % (42.0-75.0); Hemoglobin 12.4 g/dL (12.0-16.0); Mean Corpuscular HGB CONC 34.1 g/dL (32.0-36.0); Mean Corpuscular Volume 96.9 fL (78.0-98.0); Mean Platelet Volume 8.2 fL (7.4-10.4); Platelet Count 196 thou/uL (130-400); RBC Distribution Width 12.1 % (11.5-14.5); Red Blood Cell (RBC) Count 3.76 mill/uL (4.20-5.40); White Blood Cell (WBC) Count 13.2 thou/uL (4.8-10.8)
--- NOTE | 2017-12-01 15:55 | RAD ---
PA AND LATERAL CHEST: Date: 12/01/17 HISTORY: Chest pain and shortness of breath. COMPARISON: 08/14/17. FINDINGS: Cardiac silhouette and pulmonary vasculature are within normal limits. There is increased density see n right lung base posteriorly, stable from prior study, and shown to represent Bochdalek hernia at th e posteromedial right lung base on prior CT thorax on 11/18/16. In addition, there is suggestion of m ild atelectasis at the left lung base with curvilinear density again seen overlying the posterior lef t lung base in the lateral projection, probably related to an area of scarring. This is similar to pr ior exam. Lungs are otherwise clear. There has been no significant interval change from prior exams. IMPRESSION: 1. No acute cardiopulmonary process. 2. Bochdalek hernia right lung base, which was confirmed on prior CT exam on 11/18/16. 3. Atelectasis left lung base. POS: [facility]
[2017-12-01 16:10] LABS: ALT (SGPT) 18 U/L (8-55); AST (SGOT) 15 U/L (5-34); Alkaline Phosphatase 73 U/L (40-150); Anion Gap 16 mmol/L (10-20); BUN (Urea Nitrogen) 21 mg/dL (9.8-20.1); Bilirubin, Total 0.4 mg/dL (0.2-1.2); CK (CPK) 55 U/L (29-168); Calc. Creatinine Clearance 0 mL/min (70-130); Calcium 9.6 mg/dL (7.8-10.44); Carbon Dioxide 23 mmol/L (23-31); Chloride 106 mmol/L (98-107); Estimated GFR-MDRD 83; Globulin 2.6 g/dL (2.4-3.5); Lipase 23 U/L (8-78); Potassium 3.5 mmol/L (3.5-5.1); Protein, Total 6.6 g/dL (6.0-8.3); Sodium 141 mmol/L (136-145)
[2017-12-01 16:15] LABS: CKMB 1.5 ng/mL (0-6.6); Troponin I Less than 0.010 ng/mL (< 0.028)
[2017-12-01 16:20] LABS: Glucose 59 mg/dL (80-115)
--- NOTE | 2017-12-13 11:48 | EKG ---
Test Reason : SOB Blood Pressure : / mmHG Vent. Rate : 059 BPM Atrial Rate : 059 BPM P-R Int : 138 ms QRS Dur : 072 ms QT Int : 424 ms P-R-T Axes : 062 028 037 degrees QTc Int : 419 ms Sinus bradycardia Otherwise normal ECG Confirmed by SEMAJ GIRON ([id number]), editorial writer MELONIE BUSTAMANTE ([id number]) on 12/13/2017 11:47:36 AM Referred By: Confirmed By:SEMAJ GIRON
== END 2017-12-01 16:48 | disposition home or self-care (01) ==
LOC: ERS 14:28
DX: J40 Bronchitis, not specified as acute or chronic (principal); E11.9 Type 2 diabetes mellitus without complications; I10 Essential (primary) hypertension; J45.909 Unspecified asthma, uncomplicated; F32.9 Major depressive disorder, single episode, unspecified; Z79.899 Other long term (current) drug therapy; Z79.4 Long term (current) use of insulin
CPT/HCPCS: 36415; 71046; 80053; 82553; 83690; 84484; 85025; 93005; 96372; J1885

== ENCOUNTER 2017-12-19 13:42 | Inpatient (IN) | payer OTHER ==
[2017-12-19 14:04] LABS: #Basophils 0.1 thou/uL (0.0-0.2); #Eosinphils 0.1 thou/uL (0.0-0.7); #Lymphocytes 2.6 thou/uL (1.20-3.40); #Monocytes 1.4 thou/uL (0.11-0.59); #Neutrophils 8.2 thou/uL (1.40-6.50); %Basophils 0.6 % (0.0-1.0); %Eosinophils 0.6 % (0.0-10.0); %Lymphocytes 21.3 % (21.0-51.0); %Monocytes 11.4 % (0.0-10.0); %Neutrophils 66.1 % (42.0-75.0); Hemoglobin 12.2 g/dL (12.0-16.0); Mean Corpuscular HGB CONC 34.7 g/dL (32.0-36.0); Mean Corpuscular Hemoglobin 32.6 pg (27.0-31.0); Mean Corpuscular Volume 93.9 fL (78.0-98.0); Mean Platelet Volume 7.6 fL (7.4-10.4); Platelet Count 227 thou/uL (130-400); RBC Distribution Width 11.5 % (11.5-14.5); Red Blood Cell (RBC) Count 3.75 mill/uL (4.20-5.40); White Blood Cell (WBC) Count 12.4 thou/uL (4.8-10.8)
[2017-12-19 14:31] LABS: ALT (SGPT) 10 U/L (8-55); AST (SGOT) 12 U/L (5-34); Alkaline Phosphatase 79 U/L (40-150); Anion Gap 10 mmol/L (10-20); BUN (Urea Nitrogen) 15 mg/dL (9.8-20.1); Bilirubin, Total 0.4 mg/dL (0.2-1.2); CK (CPK) 54 U/L (29-168); Calc. Creatinine Clearance 0 mL/min (70-130); Calcium 9.2 mg/dL (7.8-10.44); Carbon Dioxide 27 mmol/L (23-31); Chloride 108 mmol/L (98-107); Estimated GFR-MDRD 84; Globulin 2.5 g/dL (2.4-3.5); Glucose 90 mg/dL (80-115); Potassium 3.6 mmol/L (3.5-5.1); Protein, Total 6.5 g/dL (6.0-8.3); Sodium 141 mmol/L (136-145)
--- NOTE | 2017-12-19 14:53 | RAD ---
PORTABLE CHEST 1 VIEW: DATE: 12/19/17. TIME: 2:42 p.m. HISTORY: Shortness of breath. FINDINGS: Comparison is made with the exam of 12/01/17. The heart is enlarged. There is pulmonary vascular congestion with bibasilar infiltrate/atelectatic changes. No pneumothoraces or large effusions are seen. Small effusions cannot be excluded. POS: [facility]
[2017-12-19] MEDS ORDERED: Albuterol Sulfate 2.5 mg/0.5 ml Neb ONE (14:59)
[2017-12-19] MEDS ORDERED: methylPREDNISolone Sod Succ/PF 125 MG/2 ML VIAL ONE (15:02)
[2017-12-19] MEDS ORDERED: cefTRIAXone\\ROCEPHIN 2 GM VIAL ONE (15:49)
[2017-12-19] MEDS ORDERED: Azithromycin 500 MG in Sodium Chloride 0.9% 250 ML 250 ML IVPB SCH (16:15)
[2017-12-19 16:22] LABS: Troponin I Less than 0.010 ng/mL (< 0.028)
[2017-12-19 17:01] LABS: Bilirubin Negative (Negative); Blood, Urine Negative (Negative); Clarity CLEAR (Clear); Glucose, Urine (Dipstick) Negative (Negative); Leukocyte Negative (Negative); Nitrite Negative (Negative); Protein, Urine (Dipstick) Negative (Neg-Trace); Specific Gravity, Urine 1.007 (1.002-1.036)
[2017-12-19 18:29] VITALS: BMI 27.8
[2017-12-19] MEDS ORDERED: Ondansetron ODT 4 MG TAB SL PRN (18:56)
[2017-12-19] MEDS ORDERED: Ondansetron HCl/PF 4 MG/2 ML Vial IVP PRN (18:56)
[2017-12-19] MEDS ORDERED: Acetaminophen 325 MG TAB PO PRN (18:56)
[2017-12-19] MEDS ORDERED: Dextrose 5% in Water 1,000 ML IV PRN (19:50)
[2017-12-19] MEDS ORDERED: Dextrose 50% Abboject 50 ML SYRINGE IVP PRN (19:50)
[2017-12-19] MEDS ORDERED: Benzonatate 100 MG CAP PO PRN (19:51)
[2017-12-19] MEDS ORDERED: Zolpidem Tartrate 5 MG TAB PO PRN (19:53)
[2017-12-19] MEDS: cloNIDine 0.1 MG TAB PO SCH (21:28)
[2017-12-19] MEDS: Lubiprostone 24 MCG CAP PO SCH (21:29)
[2017-12-19] MEDS: guaiFENesin ER 600 MG TAB PO SCH (21:29)
[2017-12-19] MEDS: Insulin Regular 300 UNITS/3 ML VIAL SC PRN (21:31)
[2017-12-19] MEDS: traMADol HCl 50 MG TAB PO PRN (23:25)
--- NOTE | 2017-12-20 00:56 | HP ---
DATE OF ADMISSION: 12/19/2017 CHIEF COMPLAINT: Bilateral pneumonia and exacerbation of asthma. HISTORY OF PRESENT ILLNESS: Patient is a 62-year-old female, who actually came to Dr. Aguilar' office about a week prior to this where she was noted to have exacerbation of asthma and sinusitis. There w as no pneumonia at that time. She was started on antibiotics and since that time has progressively w orsened, denying nausea and vomiting. The cough is progressive. Shortness of breath with minimal ex ertion, so she finally came to the ER for further evaluation. There, on a chest x-ray bilateral infi ltrates were noted. There still has not been high fever documented. White count is only 12, so the thought is that it is an atypical pneumonia. Blood cultures have been drawn. IV antibiotics begun. Symptomatic treatment initiated. PAST MEDICAL HISTORY: Hypertension, hyperlipidemia, insulin-dependent diabetes, chronic back pain, c hronic knee pain, herniated disk, asthma, anxiety, chronic sinusitis, recurrent bronchitis, depressio n, overactive bladder. PAST SURGICAL HISTORY: Includes, 1. Right knee surgery with numerous arthroscopic procedures. 2. Hysterectomy. 3. Cholecystectomy. 4. Back surgery. SOCIAL HISTORY: Does not smoke or drink alcoholic beverages. ALLERGIES: PENICILLIN. MEDICATIONS: On admission include, she states Valium 5 mg q.8 hours p.r.n., but I do not know where she gets that medicine; cyclobenzaprine 10 mg at bedtime; Amitiza 24 mcg b.i.d.; Zoloft 50 mg daily; Nexium 40 mg daily; Bystolic 10 mg daily; clonidine 0.1 mg b.i.d.; Tradjenta 5 mg daily; Ambien 10 mg at bedtime p.r.n.; VESIcare 10 mg every day; Levemir 30 units subcu daily; p.r.n. albuterol neb lucas tments; Tessalon Perles 200 mg q.6 hours p.r.n. cough. She has been on Zithromax as an outpatient. REVIEW OF SYSTEMS: The patient is currently denying fever, but has progressive cough, weakness, elev ated blood pressure. HEENT: Denies blurred vision or discharge from ears, nose, or throat. Neck: Nonpainful range of motion. No masses. Chest: Positive for cough, wheezing, dyspnea. Cardiovascul ar: Denies palpitations or chest pain. Abdomen: Denies nausea, vomiting, diarrhea. Genitourinary: Denies dysuria, frequency, or blood in urine or stool. Extremities: Without clubbing. Denies any swelling, edema, or painful range of motion. Skin: Denies any rashes or lesions. Neurologic: Den ies headaches, paresthesias, trouble with mentation. Remainder of review of systems is negative. PHYSICAL EXAMINATION: At the time of admission, VITAL SIGNS: Blood pressure 173/77, temperature 98.9, pulse 73, respirations 20, O2 sat 96% on room air. GENERAL: This is a well-developed, well-nourished female, alert, oriented, and cooperative. HEENT: Normocephalic and atraumatic. Pupils equal, round, and reactive to light. Extraocular muscl es are intact. TMs, nares, pharynx are clear. NECK: Supple, trachea midline. No mass. CHEST: With bibasilar rales, diminished breath sounds and active wheezing in all lobes. HEART: Regular rate and rhythm, no murmur. ABDOMEN: Soft, nontender, unable to appreciate any organomegaly. GENITOURINARY AND BREAST EXAM: Deferred. EXTREMITIES: Without clubbing, cyanosis, or edema. Normal range of motion present. SKIN: Without acute rashes or lesions. NEUROLOGICAL: Cranial nerves are intact. Gait and cerebellar function intact. Sensory exam is inta ct. Mental status at baseline. LABORATORY DATA: The lab thus far shows WBCs 12.4, hemoglobin 12.2, hematocrit 35.2 with platelets a t 227, and an unremarkable differential. Sodium 141, potassium 3.6, chloride 108, CO2 is 27, BUN 15, creatinine 0.83, glucose 90. Lactic acid 1, magnesium 1.9. Liver functions normal. Troponins nega tive. BNP slightly elevated at 152. Urinalysis unremarkable. Chest x-ray, bibasilar infiltrates wi th mild cardiomegaly. ASSESSMENT: 1. Bilateral atypical pneumonia. 2. Hypertension. 3. Insulin-dependent diabetic. 4. Asthma with exacerbation. 5. Anxiety disorder. PLAN: Continue IV antibiotics for coverage of atypical organisms, schedule neb treatments, mucolytic s, and serial re-evaluation. If she fails to improve, we will get pulmonary consultation and daily r eassessment.
[2017-12-20] MEDS: traMADol HCl 50 MG TAB PO PRN ×3 (04:43→20:02)
[2017-12-20] MEDS: Insulin Glargine 30 UNITS in Pre-Filled Syringe 1 EACH SC SCH (07:31)
[2017-12-20] MEDS: cloNIDine 0.1 MG TAB PO SCH ×2 (07:32→20:00)
[2017-12-20] MEDS: Alogliptin 25 MG TAB PO SCH (07:32)
[2017-12-20] MEDS: Lubiprostone 24 MCG CAP PO SCH ×2 (07:32→20:00)
[2017-12-20] MEDS: Nebivolol HCl 5 MG TAB PO SCH (07:33)
[2017-12-20] MEDS: guaiFENesin ER 600 MG TAB PO SCH ×2 (07:33→20:00)
[2017-12-20] MEDS: Insulin Regular 300 UNITS/3 ML VIAL SC PRN (11:54)
[2017-12-20] MEDS: cefTRIAXone\\ROCEPHIN 2 GM in Sodium Chloride 0.9% 100 ML IVPB SCH (11:54)
[2017-12-20] MEDS: Azithromycin 500 MG in Sodium Chloride 0.9% 250 ML 250 ML IVPB SCH (14:43)
[2017-12-20] MEDS: Acetaminophen 325 MG TAB PO PRN (16:32)
[2017-12-20] MEDS: Benzonatate 100 MG CAP PO SCH ×2 (16:33→23:34)
--- NOTE | 2017-12-20 18:55 | RAD ---
PA AND LATERAL CHEST X-RAY 12/20/17 HISTORY: Pneumonia. COMPARISON: 12/19/17. FINDINGS: The cardiac silhouette is mildly enlarged. The pulmonary vasculature is within normal limits. There a re linear increased densities seen at each lung base, probably related to atelectasis, although devel oping pneumonia at either lung base cannot be entirely excluded. However, the densities at each lung base do appear mildly improved. No other interval change. IMPRESSION: 1. Linear parenchymal changes at each lung base probably related to atelectasis with mild interv al improvement from the prior study. However, continued followup is recommended as developing pneumon ia at either lung base cannot be entirely excluded. 2. Elevation posterior right hemidiaphragm. However, this was shown to represent a Bochdalek her antony on prior CT thorax on 11/18/16. POS: [facility]
[2017-12-21] MEDS: guaiFENesin/Codeine Phosphate 200 mg/20 mg 10 ml UD Cup PO PRN ×3 (00:45→21:28)
[2017-12-21 04:54] LABS: Band 20 % (5-11); Lymphocytes 6 % (21-51); MDiff Complete? YES; Mean Corpuscular HGB CONC 33.9 g/dL (32.0-36.0); Mean Corpuscular Hemoglobin 31.9 pg (27.0-31.0); Mean Corpuscular Volume 93.9 fL (78.0-98.0); Monocytes 4 % (0-10); Neutrophil 70 % (42-75); PLT Morphology Comment Appears Adequate; Platelet Count 241 thou/uL (130-400); RBC Distribution Width 11.6 % (11.5-14.5); Red Blood Cell (RBC) Count 4.07 mill/uL (4.20-5.40); White Blood Cell (WBC) Count 19.5 thou/uL (4.8-10.8)
[2017-12-21] MEDS: Benzonatate 100 MG CAP PO SCH ×4 (05:36→23:30)
[2017-12-21] MEDS: cloNIDine 0.1 MG TAB PO SCH ×2 (08:31→21:33)
[2017-12-21] MEDS: Lubiprostone 24 MCG CAP PO SCH ×2 (08:32→21:32)
[2017-12-21] MEDS: Nebivolol HCl 5 MG TAB PO SCH (08:32)
[2017-12-21] MEDS: Insulin Glargine 30 UNITS in Pre-Filled Syringe 1 EACH SC SCH (08:32)
[2017-12-21] MEDS: Alogliptin 25 MG TAB PO SCH (08:32)
[2017-12-21] MEDS: guaiFENesin ER 600 MG TAB PO SCH ×2 (08:32→21:31)
[2017-12-21] MEDS: traMADol HCl 50 MG TAB PO PRN ×2 (08:41→21:31)
[2017-12-21] MEDS ORDERED: Prevnar 13-Val Conj/PF 0.5 ML SYRINGE IM ONE (09:00)
[2017-12-21] MEDS: Fentanyl 100 MCG/2 ML VIAL SLOW IVP PRN ×2 (09:51→23:36)
[2017-12-21] MEDS: cefTRIAXone\\ROCEPHIN 2 GM in Sodium Chloride 0.9% 100 ML IVPB SCH (12:07)
[2017-12-21] MEDS: Insulin Regular 300 UNITS/3 ML VIAL SC PRN (12:08)
[2017-12-21] MEDS: methylPREDNISolone Sod Succ/PF 125 MG/2 ML VIAL IVP SCH ×3 (12:08→23:31)
[2017-12-21] MEDS: Azithromycin 500 MG in Sodium Chloride 0.9% 250 ML 250 ML IVPB SCH (14:59)
[2017-12-21] MEDS: Budesonide 0.5 MG/2 ML NEB NEB SCH (19:22)
[2017-12-21] MEDS ORDERED: Amlodipine 5 MG TAB PO SCH (21:15)
[2017-12-22] MEDS: traMADol HCl 50 MG TAB PO PRN ×3 (04:33→21:04)
[2017-12-22] MEDS: guaiFENesin/Codeine Phosphate 200 mg/20 mg 10 ml UD Cup PO PRN ×3 (04:36→21:05)
[2017-12-22 05:21] LABS: Anion Gap 13 mmol/L (10-20); BUN (Urea Nitrogen) 18 mg/dL (9.8-20.1); Calc. Creatinine Clearance 76 mL/min (70-130); Calcium 10.4 mg/dL (7.8-10.44); Carbon Dioxide 27 mmol/L (23-31); Chloride 103 mmol/L (98-107); Estimated GFR-MDRD 85; Glucose 200 mg/dL (80-115); Potassium 4.3 mmol/L (3.5-5.1); Sodium 139 mmol/L (136-145)
[2017-12-22 05:47] LABS: Band 1 % (5-11); Hemoglobin 12.7 g/dL (12.0-16.0); Lymphocytes 5 % (21-51); MDiff Complete? YES; Mean Platelet Volume 8.2 fL (7.4-10.4); Monocytes 3 % (0-10); Neutrophil 91 % (42-75); PLT Morphology Comment Appears Adequate; Platelet Count 241 thou/uL (130-400); RBC Distribution Width 11.5 % (11.5-14.5); RBC Morphology Normal; White Blood Cell (WBC) Count 20.7 thou/uL (4.8-10.8)
[2017-12-22] MEDS: Benzonatate 100 MG CAP PO SCH ×3 (06:33→17:20)
[2017-12-22] MEDS: methylPREDNISolone Sod Succ/PF 125 MG/2 ML VIAL IVP SCH ×2 (06:34→11:27)
[2017-12-22] MEDS: Fentanyl 100 MCG/2 ML VIAL SLOW IVP PRN ×3 (06:36→17:53)
[2017-12-22] MEDS: Budesonide 0.5 MG/2 ML NEB NEB SCH ×2 (06:37→18:23)
[2017-12-22] MEDS: Insulin Regular 300 UNITS/3 ML VIAL SC PRN ×2 (06:43→11:30)
[2017-12-22] MEDS: Nebivolol HCl 5 MG TAB PO SCH (07:55)
[2017-12-22] MEDS: Lubiprostone 24 MCG CAP PO SCH ×2 (07:55→20:55)
[2017-12-22] MEDS: Alogliptin 25 MG TAB PO SCH (07:55)
[2017-12-22] MEDS: guaiFENesin ER 600 MG TAB PO SCH ×2 (07:56→20:56)
[2017-12-22] MEDS: Amlodipine 5 MG TAB PO SCH (07:56)
[2017-12-22] MEDS: cloNIDine 0.1 MG TAB PO SCH (07:56)
[2017-12-22] MEDS ORDERED: Clopidogrel Bisulfate 75 MG TAB ONE (08:47)
[2017-12-22] MEDS: Insulin Glargine 30 UNITS in Pre-Filled Syringe 1 EACH SC SCH (08:56)
[2017-12-22] MEDS: metFORMIN 500 MG TAB PO SCH ×2 (08:56→17:20)
[2017-12-22] MEDS: cloNIDine 0.2 MG TAB PO SCH ×2 (08:56→20:55)
[2017-12-22] MEDS ORDERED: Amlodipine 5 MG TAB PO SCH (09:00)
--- NOTE | 2017-12-22 09:23 | RAD ---
RADIOGRAPH CHEST 2 VIEWS: Date: 12-22-17 Time: 8:34 A.M. HISTORY: 62-year-old female follow up abnormal chest radiograph. COMPARISON: 12-20-17 at 6:33 p.m. FINDINGS: There is a new finding of elevation of the left hemidiaphragm. No consolidation. Mild parenchymal den sities at the bilateral lung bases, probably representing subsegmental atelectasis, unchanged. No sig nificant pulmonary venous engorgement or any pulmonary edema. No pneumothorax identified. No pleural effusion. The cardiac size is mildly enlarged. IMPRESSION: 1. Interval development of elevation of the left hemidiaphragm. This is suggestive of increase in lef t lower lobe atelectasis. 2. No other interval change. 3. Cardiomegaly without congestive heart failure. 4. Mild bibasilar pulmonary densities are favored to represent subsegmental atelectasis. JN POS: [facility]
[2017-12-22] MEDS ORDERED: Magnesium Sulfate 3 GM in Sodium Chloride 0.9% 100 ML IVPB SCH (14:00)
[2017-12-22] MEDS: Azithromycin 500 MG in Sodium Chloride 0.9% 250 ML 250 ML IVPB SCH (14:15)
--- NOTE | 2017-12-22 14:39 | CON ---
DATE OF CONSULTATION: 12/22/2017 HISTORY OF PRESENT ILLNESS: Ms. Sun is a pleasant 62-year-old female with asthma. I have found PFTs that I read back in 2015, which showed a normal FEV1. She says she has been having shortness of breath for 5 months. She was treated as an outpatient and subsequently has been admitted. Chest radiograph does not show any alveolar infiltrates. Chest radiograph today by my review shows slight elevation of left hemidiaphragm, which I suspect is from mucus plugging. PAST MEDICAL AND SURGICAL HISTORY: Remarkable for, 1. Asthma. 2. Distant history of smoking. 3. History of hypertension. 4. Diabetes. 5. Degenerative arthritis. 6. History of depression. 7. History of multiple knee surgeries. 8. Status post hysterectomy, cholecystectomy, and back surgery. SOCIAL HISTORY: She is a non-smoker, nondrinker, nondrug user. ALLERGIES: She reports allergic to PENICILLIN. MEDICATIONS: Prior to admission, she was on Valium, Amitiza, Zoloft, Nexium, Bystolic, clonidine, Tradjenta, Ambien, VESIcare, Levemir, Tessalon Perles. FAMILY HISTORY: Negative for lung disease in early age. REVIEW OF SYSTEMS: A 10-point review of systems is remarkable only for a bad cough and shortness of breath. PHYSICAL EXAMINATION: GENERAL: She was coughing frequently when I was in the room. VITAL SIGNS: She is afebrile, heart rate is 79, respiratory rate 18, oximetry is 93 on room air, blood pressure is 157/72. HEENT: Pupils are equal. Sclerae is anicteric. NECK: Supple, no lymphadenopathy. LUNGS: Remarkable for diffuse coarse wheezes. HEART: Regular rhythm. S1 and S2 are normal. ABDOMEN: Soft and nontender. EXTREMITIES: No clubbing, cyanosis, or edema. IMAGING: As mentioned, I reviewed her radiographs. IMPRESSION: Asthmatic bronchitis. Her white count, I suspect it is from her steroids (20.7). Electrolytes and renal function are normal. Glucose is elevated. Her blood pressure has been intermittently elevated. I will be happy to follow with the other physicians caring for her. We could decrease the dose of her IV steroids. Probably, we would increase her nebulizer treatments around the clock q.4 hours. This is a 50 minute consult with 50 % of time spent on unit coordinating care. GALA
[2017-12-22] MEDS: Acetaminophen 325 MG TAB PO PRN (16:04)
[2017-12-23] MEDS: Benzonatate 100 MG CAP PO SCH ×5 (00:28→23:55)
[2017-12-23] MEDS: Budesonide 0.5 MG/2 ML NEB NEB SCH ×2 (06:20→19:09)
[2017-12-23] MEDS: Lubiprostone 24 MCG CAP PO SCH ×2 (07:37→20:29)
[2017-12-23] MEDS: Alogliptin 25 MG TAB PO SCH (07:37)
[2017-12-23] MEDS: Nebivolol HCl 5 MG TAB PO SCH (07:37)
[2017-12-23] MEDS: guaiFENesin ER 600 MG TAB PO SCH ×2 (07:37→20:28)
[2017-12-23] MEDS: metFORMIN 500 MG TAB PO SCH ×2 (07:37→17:00)
[2017-12-23] MEDS: Amlodipine 5 MG TAB PO SCH (07:37)
[2017-12-23] MEDS: cloNIDine 0.2 MG TAB PO SCH ×2 (07:38→20:28)
[2017-12-23] MEDS: Insulin Glargine 30 UNITS in Pre-Filled Syringe 1 EACH SC SCH (09:40)
[2017-12-23] MEDS ORDERED: Hydrochlorothiazide 25 MG TAB PO SCH (09:45)
[2017-12-23] MEDS: Guaifenesin DM 100-10/5 ML UDCUP PO SCH ×3 (12:45→20:29)
[2017-12-23] MEDS: Azithromycin 500 MG in Sodium Chloride 0.9% 250 ML 250 ML IVPB SCH (14:02)
--- NOTE | 2017-12-23 15:31 | PQF ---
CLINICAL DOCUMENTATION IMPROVEMENT CLARIFICATION FORM: ICD-10 Updated PLEASE DO AN ADDENDUM TO THE PROGRESS NOTE WITH ANY DOCUMENTATION UPDATES OR ADDITIONS AND CARRY THROUGH TO DC SUMMARY. THANK YOU. DATE: 12/23/17 ATTN: Dr. Aguilar Please exercise your independent, professional judgment in responding to the clarification form. Clinical indicators are provided on the bottom of this form for your review Please check appropriate box(s): [ x ] Bronchopneumonia [ ] Atelectasis [ x ] Other diagnosis __Asthmatic Bronchitis [ ] Unable to determine In addition, please specify: Present on Admission (POA): [ x ] Yes [ ] No [ ] Unable to determine For continuity of documentation, please document condition throughout progress notes and discharge summary. Thank You. CLINICAL INDICATORS - SIGNS / SYMPTOMS / LABS H&P 12/19: CHEST X-RAY BILATERAL INFILTRATES WERE NOTED PN 12/22: BRONCHO-PNEUMONIA ASTHMA PULMONOLOGY CONSULT 12/22: CHEST RADIOGRAPH DOES NOT SHOW ANY ALVEOLAR INFILTRATES ASTHMATIC BRONCHITIS PN 12/23: CXR- ATELECTASIS CHEST TIGHT W/ WHEEZES ASTHMATIC BRONCHITIS RISKS: H&P 12/19: HX OF HTN, INSULIN DEPENDENT DIABETIC; ASTHMA, RECURRENT BRONCHITIS. BILATERAL ATYPICAL PNEUMONIA. ASTHMA WITH EXACERBATION. TREATMENT: H&P: CONTINUE IV ANTIBIOTICS FOR COVERAGE OF ATYPICAL ORGANISMS ORDER 12/19: ZITHROMAX 500 MG IV ORDER 12/22: LEVAQUIN 500 MG IV ORDER 12/22: DUONEB Q 4 HR Thank you, Cierra (This form is maintained as a part of the permanent medical record) 2014 [employer] All Rights Reserved Cierra Márquez RN, BSN [email or web address] Office: [phone] [facility]
[2017-12-24] MEDS: Guaifenesin DM 100-10/5 ML UDCUP PO SCH ×6 (00:03→20:39)
[2017-12-24] MEDS: traMADol HCl 50 MG TAB PO PRN (00:15)
[2017-12-24] MEDS: Fentanyl 100 MCG/2 ML VIAL SLOW IVP PRN (02:39)
[2017-12-24] MEDS ORDERED: Guaifenesin DM 100-10/5 ML UDCUP PO SCH (02:45)
[2017-12-24] MEDS: Benzonatate 100 MG CAP PO SCH ×4 (05:55→22:31)
[2017-12-24 06:25] LABS: Band 1 % (5-11); Lymphocytes 9 % (21-51); MDiff Complete? YES; Mean Corpuscular HGB CONC 33.8 g/dL (32.0-36.0); Mean Corpuscular Hemoglobin 31.6 pg (27.0-31.0); Mean Corpuscular Volume 93.6 fL (78.0-98.0); Mean Platelet Volume 8.8 fL (7.4-10.4); Monocytes 4 % (0-10); Neutrophil 86 % (42-75); PLT Morphology Comment Appears Adequate; Platelet Count 218 thou/uL (130-400); RBC Distribution Width 11.6 % (11.5-14.5); RBC Morphology Normal; White Blood Cell (WBC) Count 23.7 thou/uL (4.8-10.8)
[2017-12-24] MEDS: Budesonide 0.5 MG/2 ML NEB NEB SCH ×2 (07:07→18:21)
[2017-12-24] MEDS: Insulin Glargine 30 UNITS in Pre-Filled Syringe 1 EACH SC SCH (08:41)
[2017-12-24] MEDS: Acetaminophen 325 MG TAB PO PRN (08:42)
[2017-12-24] MEDS: guaiFENesin ER 600 MG TAB PO SCH ×2 (08:43→20:38)
[2017-12-24] MEDS: Nebivolol HCl 5 MG TAB PO SCH (08:44)
[2017-12-24] MEDS: metFORMIN 500 MG TAB PO SCH ×2 (08:45→15:33)
[2017-12-24] MEDS: Amlodipine 5 MG TAB PO SCH (08:46)
[2017-12-24] MEDS: Alogliptin 25 MG TAB PO SCH (08:47)
[2017-12-24] MEDS: cloNIDine 0.2 MG TAB PO SCH ×2 (08:48→20:39)
[2017-12-24] MEDS: Hydrochlorothiazide 25 MG TAB PO SCH (08:48)
[2017-12-24] MEDS: HYDROcodone/Acetaminophen 5/325 mg Tablet PO PRN ×3 (09:02→22:30)
[2017-12-24] MEDS: Lubiprostone 24 MCG CAP PO SCH ×2 (09:04→20:38)
[2017-12-24] MEDS: Acetylcysteine 20% 200 MG/ML 30 ML VIAL INH SCH ×2 (11:33→14:47)
[2017-12-24] MEDS: Amlodipine 10 MG TAB PO SCH (12:17)
[2017-12-24] MEDS: Fluticasone Propionate Nasal Spray 16 gm Bottle NASAL SCH (12:18)
[2017-12-24] MEDS ORDERED: Fluticasone Propionate Nasal Spray 16 gm Bottle NASAL SCH (12:45)
[2017-12-24] MEDS: Azithromycin 500 MG in Sodium Chloride 0.9% 250 ML 250 ML IVPB SCH (15:38)
--- NOTE | 2017-12-24 17:12 | ULT ---
ULTRASOUND RETROPERITONEUM COMPLETE (RENAL) DOPPLER DUPLEX: DATE: 12/24/17. HISTORY: A 62-year-old female with hypertension. Rule out renal artery stenosis. TECHNIQUE: Terry scale images of bilateral kidneys and the post void urinary bladder. Color flow and spectral analysis of the bilateral main renal arteries, the adjacent segment of the ab dominal aorta, and the arcuate level branches of the renal arteries. FINDINGS: The right kidney measures 9.5 x 4 x 4 cm. The left kidney measures 10 x 5.5 x 5 cm. Both kidneys judge ve normal cortical thickness and normal cortical echogenicity. There is no hydronephrosis. The post void bladder volume is 135 mL. Bilateral ureteral jets are demonstrated. No bladder mass is identi fied. No moderate-sized or large renal cyst or solid renal mass is identified. Highest peak systolic velocities: Right renal artery: 35 cm/s. Left renal artery: 50 cm/s. Right renal artery/aorta ratio: 0.4. Left renal artery/aorta ratio: 0.6. Resistive Index: Right arcuate: 0.83, 0.72, and 0.79. Left arcuate: 0.90, 0.79, and 0.75. IMPRESSION: 1. Poor bladder emptying. 2. No morphologic abnormality of the kidneys identified. 3. No Doppler evidence of renal arterial stenosis. 4. Elevated resistive indices of both kidneys. jn [] POS: [facility]
--- NOTE | 2017-12-24 17:43 | PRG ---
DATE OF SERVICE: 12/24/2017 SUBJECTIVE: Corinne is downstairs for abdominal ultrasound to look at her renal arteries. Heart rates in the 80s, respiratory rates in the teens. She is on room air now at 95%. She is still mildly hypertensive 189/77 earlier today. Nursing reports improved respiratory status Mucomyst was added. This may actually aggravate her bronchospasm and clearance of secretions when continuously nebulized, I will put a hold on this for now. Continue with steroids and nebulized treatments until she is ambulating in the [place] with minimal dyspnea before considering her for discharge. She has had her symptoms for many months and she should be sure that she is improved significantly before discharging her. GALA
[2017-12-25] MEDS: Temazepam 15 MG CAP PO SCH ×2 (00:49→23:20)
[2017-12-25] MEDS: Benzonatate 100 MG CAP PO SCH ×4 (05:58→23:20)
[2017-12-25] MEDS: Guaifenesin DM 100-10/5 ML UDCUP PO SCH ×5 (05:58→19:37)
[2017-12-25] MEDS: Insulin Regular 300 UNITS/3 ML VIAL SC PRN ×2 (06:00→11:34)
[2017-12-25 06:01] LABS: Band 14 % (5-11); Hemoglobin 13.1 g/dL (12.0-16.0); Lymphocytes 5 % (21-51); MDiff Complete? YES; Mean Corpuscular HGB CONC 34.4 g/dL (32.0-36.0); Mean Corpuscular Hemoglobin 32.1 pg (27.0-31.0); Mean Corpuscular Volume 93.4 fL (78.0-98.0); Mean Platelet Volume 8.6 fL (7.4-10.4); Monocytes 4 % (0-10); Neutrophil 77 % (42-75); Platelet Count 235 thou/uL (130-400); RBC Distribution Width 11.4 % (11.5-14.5); Red Blood Cell (RBC) Count 4.08 mill/uL (4.20-5.40); White Blood Cell (WBC) Count 21.9 thou/uL (4.8-10.8)
[2017-12-25] MEDS: Budesonide 0.5 MG/2 ML NEB NEB SCH ×2 (06:25→19:43)
[2017-12-25] MEDS: Insulin Glargine 30 UNITS in Pre-Filled Syringe 1 EACH SC SCH (08:35)
[2017-12-25] MEDS: Hydrochlorothiazide 25 MG TAB PO SCH (08:37)
[2017-12-25] MEDS: Lubiprostone 24 MCG CAP PO SCH ×2 (08:38→19:38)
[2017-12-25] MEDS: Alogliptin 25 MG TAB PO SCH (08:38)
[2017-12-25] MEDS: guaiFENesin ER 600 MG TAB PO SCH ×2 (08:38→19:37)
[2017-12-25] MEDS: Nebivolol HCl 5 MG TAB PO SCH (08:39)
[2017-12-25] MEDS: HYDROcodone/Acetaminophen 5/325 mg Tablet PO PRN ×3 (08:40→20:54)
[2017-12-25] MEDS: Amlodipine 10 MG TAB PO SCH (08:40)
[2017-12-25] MEDS: cloNIDine 0.2 MG TAB PO SCH ×2 (08:42→19:38)
[2017-12-25] MEDS: metFORMIN 500 MG TAB PO SCH ×2 (08:42→14:18)
[2017-12-25] MEDS: Fluticasone Propionate Nasal Spray 16 gm Bottle NASAL SCH (08:50)
--- NOTE | 2017-12-25 10:06 | PRG ---
DATE OF SERVICE: 12/25/2017 PHYSICAL EXAMINATION: VITAL SIGNS: Ms. Sun is afebrile, heart rate 81, blood pressure 177/73, respiratory rate is 20, oximetry is 93 on room air, blood pressure 152/83 earlier today. LUNGS: Still remarkable for wheezes, but she is improving every day. HEART: Regular rhythm. ABDOMEN: Soft. LABORATORY DATA: White count 21.9, hemoglobin 13.1, platelets 235. Glucose has fluctuated between 9 3 and 194. IMPRESSION: Status asthmaticus, slowly resolving. PLAN: Continue IV steroids, nebulized treatments frequently.
[2017-12-25] MEDS: Azithromycin 500 MG in Sodium Chloride 0.9% 250 ML 250 ML IVPB SCH (11:35)
[2017-12-26] MEDS: Budesonide 0.5 MG/2 ML NEB NEB SCH ×2 (05:44→18:15)
[2017-12-26] MEDS: Benzonatate 100 MG CAP PO SCH ×3 (05:58→16:45)
[2017-12-26] MEDS: Guaifenesin DM 100-10/5 ML UDCUP PO SCH ×5 (05:58→21:56)
[2017-12-26 06:21] LABS: Band 3 % (5-11); Hemoglobin 12.9 g/dL (12.0-16.0); Lymphocytes 7 % (21-51); MDiff Complete? YES; Mean Corpuscular HGB CONC 34.2 g/dL (32.0-36.0); Mean Corpuscular Hemoglobin 31.8 pg (27.0-31.0); Mean Corpuscular Volume 92.9 fL (78.0-98.0); Mean Platelet Volume 8.9 fL (7.4-10.4); Monocytes 7 % (0-10); Myelocyte 1 % (0-0); Neutrophil 82 % (42-75); Platelet Count 238 thou/uL (130-400); RBC Distribution Width 11.5 % (11.5-14.5); Red Blood Cell (RBC) Count 4.05 mill/uL (4.20-5.40); White Blood Cell (WBC) Count 27.6 thou/uL (4.8-10.8)
[2017-12-26] MEDS: Lubiprostone 24 MCG CAP PO SCH ×2 (09:43→20:17)
[2017-12-26] MEDS: Insulin Glargine 30 UNITS in Pre-Filled Syringe 1 EACH SC SCH (09:43)
[2017-12-26] MEDS: metFORMIN 500 MG TAB PO SCH ×2 (09:43→16:45)
[2017-12-26] MEDS: cloNIDine 0.2 MG TAB PO SCH ×2 (09:43→20:16)
[2017-12-26] MEDS: Hydrochlorothiazide 25 MG TAB PO SCH (09:44)
[2017-12-26] MEDS: Nebivolol HCl 5 MG TAB PO SCH (09:44)
[2017-12-26] MEDS: Alogliptin 25 MG TAB PO SCH (09:44)
[2017-12-26] MEDS: guaiFENesin ER 600 MG TAB PO SCH ×2 (09:44→20:17)
[2017-12-26] MEDS: Amlodipine 10 MG TAB PO SCH (09:45)
[2017-12-26] MEDS: Fluticasone Propionate Nasal Spray 16 gm Bottle NASAL SCH (09:45)
[2017-12-26] MEDS: HYDROcodone/Acetaminophen 5/325 mg Tablet PO PRN ×2 (09:55→20:23)
[2017-12-26] MEDS: Insulin Regular 300 UNITS/3 ML VIAL SC PRN (12:19)
--- NOTE | 2017-12-26 12:56 | PRG ---
DATE OF SERVICE: 12/26/2017 SUBJECTIVE: Ms. Sun really had not improved since yesterday. She is still dyspneic with exertio n. OBJECTIVE: VITAL SIGNS: On exam, heart rate is 80, she is afebrile, blood pressure 174/99. LUNGS: Remarkable for diffuse wheezes. HEART: Regular rhythm. ABDOMEN: Soft. IMPRESSION: Reactive airway/asthma exacerbation, continuing to do suboptimally. PLAN: I will decrease her steroid dosing. I will stop her IV azithromycin. I will add p.o. doxycycline. She is having significant reflux symptoms, so will increase her Protonix. She will continue in the h ospital. She was encouraged to push fluids by mouth.
[2017-12-26] MEDS: Doxycycline 100 MG CAP PO SCH (20:17)
[2017-12-26] MEDS: Temazepam 15 MG CAP PO SCH (21:56)
[2017-12-27] MEDS: Benzonatate 100 MG CAP PO SCH ×5 (00:25→23:42)
[2017-12-27 04:49] LABS: Band 9 % (5-11); Hemoglobin 12.9 g/dL (12.0-16.0); Lymphocytes 7 % (21-51); MDiff Complete? YES; Mean Corpuscular HGB CONC 34.8 g/dL (32.0-36.0); Mean Corpuscular Hemoglobin 32.3 pg (27.0-31.0); Mean Corpuscular Volume 92.8 fL (78.0-98.0); Mean Platelet Volume 8.3 fL (7.4-10.4); Monocytes 7 % (0-10); Neutrophil 77 % (42-75); Platelet Count 246 thou/uL (130-400); RBC Distribution Width 11.6 % (11.5-14.5); White Blood Cell (WBC) Count 26.7 thou/uL (4.8-10.8)
[2017-12-27] MEDS: HYDROcodone/Acetaminophen 5/325 mg Tablet PO PRN ×3 (04:56→23:42)
[2017-12-27] MEDS: Guaifenesin DM 100-10/5 ML UDCUP PO SCH ×2 (05:01→08:37)
[2017-12-27] MEDS: Budesonide 0.5 MG/2 ML NEB NEB SCH ×2 (06:18→18:23)
[2017-12-27] MEDS: Doxycycline 100 MG CAP PO SCH ×2 (08:38→21:21)
[2017-12-27] MEDS: Hydrochlorothiazide 25 MG TAB PO SCH (08:39)
[2017-12-27] MEDS: guaiFENesin ER 600 MG TAB PO SCH ×2 (08:39→21:21)
[2017-12-27] MEDS: Nebivolol HCl 5 MG TAB PO SCH (08:39)
[2017-12-27] MEDS: cloNIDine 0.2 MG TAB PO SCH ×2 (08:40→21:21)
[2017-12-27] MEDS: metFORMIN 500 MG TAB PO SCH ×2 (08:40→17:35)
[2017-12-27] MEDS: Amlodipine 10 MG TAB PO SCH (08:40)
[2017-12-27] MEDS: Alogliptin 25 MG TAB PO SCH (08:40)
[2017-12-27] MEDS: Insulin Glargine 30 UNITS in Pre-Filled Syringe 1 EACH SC SCH (08:41)
[2017-12-27] MEDS: Fluticasone Propionate Nasal Spray 16 gm Bottle NASAL SCH (08:41)
[2017-12-27] MEDS: Lubiprostone 24 MCG CAP PO SCH ×2 (08:42→21:22)
[2017-12-27] MEDS ORDERED: Phenergan/Codeine 10-6.25mg/5ml UDCUP PO SCH (11:00)
[2017-12-27] MEDS ORDERED: Acetaminophen 325 MG TAB PO SCH (12:15)
[2017-12-27] MEDS: Phenergan/Codeine 10-6.25mg/5ml UDCUP PO SCH ×3 (13:11→21:22)
[2017-12-27] MEDS: Acetaminophen 325 MG TAB PO SCH ×2 (17:35→23:42)
--- NOTE | 2017-12-27 22:49 | PRG ---
DATE OF SERVICE: 12/27/2017 SUBJECTIVE: Ms. Sun done well from an asthma standpoint, but still has a bad cough. OBJECTIVE: LUNGS: Remarkable for faint wheezes. HEART: Regular rhythm. ABDOMEN: Soft. Heart rates in the 80s. Surprisingly as long as she has been in the hospital even with this severe a sthma flare. She has never been tachycardic . Switch her to Phenergan with codeine cough syrup to see if this helps. She told the nurse, she was i tching with Robitussin with codeine, but when I asked her about that, she said she did not have any p roblems with codeine, so we will try the Phenergan with codeine. We will continue with doxycycline. We will probably discontinue her Levaquin tomorrow. switch her Solu-Medrol to prednisone tomorrow if she remains stable.
[2017-12-28 05:38] LABS: Anion Gap 19 mmol/L (10-20); BUN (Urea Nitrogen) 25 mg/dL (9.8-20.1); Calc. Creatinine Clearance 65 mL/min (70-130); Calcium 10.2 mg/dL (7.8-10.44); Carbon Dioxide 23 mmol/L (23-31); Chloride 100 mmol/L (98-107); Estimated GFR-MDRD 71; Glucose 97 mg/dL (80-115); Potassium 4.4 mmol/L (3.5-5.1); Sodium 138 mmol/L (136-145)
[2017-12-28] MEDS: Budesonide 0.5 MG/2 ML NEB NEB SCH ×2 (05:54→18:23)
[2017-12-28] MEDS: HYDROcodone/Acetaminophen 5/325 mg Tablet PO PRN ×2 (06:02→21:27)
[2017-12-28] MEDS: Acetaminophen 325 MG TAB PO SCH ×4 (06:03→23:29)
[2017-12-28] MEDS: Benzonatate 100 MG CAP PO SCH ×4 (06:03→23:28)
[2017-12-28] MEDS: Phenergan/Codeine 10-6.25mg/5ml UDCUP PO SCH ×5 (06:03→21:27)
[2017-12-28 06:40] LABS: Band 4 % (5-11); Lymphocytes 6 % (21-51); MDiff Complete? YES; Mean Corpuscular HGB CONC 33.6 g/dL (32.0-36.0); Mean Corpuscular Hemoglobin 31.5 pg (27.0-31.0); Mean Corpuscular Volume 93.8 fL (78.0-98.0); Mean Platelet Volume 8.2 fL (7.4-10.4); Monocytes 4 % (0-10); Neutrophil 86 % (42-75); Platelet Count 243 thou/uL (130-400); RBC Distribution Width 11.6 % (11.5-14.5); Red Blood Cell (RBC) Count 4.13 mill/uL (4.20-5.40); White Blood Cell (WBC) Count 28.7 thou/uL (4.8-10.8)
[2017-12-28] MEDS: Alogliptin 25 MG TAB PO SCH (08:20)
[2017-12-28] MEDS: metFORMIN 500 MG TAB PO SCH ×2 (08:20→17:14)
[2017-12-28] MEDS: Lubiprostone 24 MCG CAP PO SCH ×2 (08:21→21:40)
[2017-12-28] MEDS: guaiFENesin ER 600 MG TAB PO SCH ×2 (08:21→21:27)
[2017-12-28] MEDS: Nebivolol HCl 5 MG TAB PO SCH (08:21)
[2017-12-28] MEDS: Doxycycline 100 MG CAP PO SCH ×2 (08:22→21:27)
[2017-12-28] MEDS: cloNIDine 0.2 MG TAB PO SCH ×2 (08:23→21:27)
[2017-12-28] MEDS: Amlodipine 10 MG TAB PO SCH (08:24)
[2017-12-28] MEDS: Hydrochlorothiazide 25 MG TAB PO SCH (08:24)
[2017-12-28] MEDS: Fluticasone Propionate Nasal Spray 16 gm Bottle NASAL SCH (08:24)
[2017-12-28] MEDS: Insulin Glargine 30 UNITS in Pre-Filled Syringe 1 EACH SC SCH (08:31)
[2017-12-28] MEDS: Insulin Regular 300 UNITS/3 ML VIAL SC PRN (12:02)
--- NOTE | 2017-12-28 12:26 | RAD ---
CHEST 2 VIEWS: Date: 12/28/17 HISTORY: Follow-up of bibasilar lung change. FINDINGS: Heart size is enlarged. There are some interstitial changes seen in the left base, which given differ ences in technique are fairly similar to the previous examination. IMPRESSION: Stable exam. POS: [facility]
--- NOTE | 2017-12-28 16:11 | PRG ---
DATE OF SERVICE: 12/28/2017 SUBJECTIVE: Ms. Sun continues to improve. She says Phenergan with codeine is helping her cough and she is not itching. OBJECTIVE: GENERAL: She is in no distress. LUNGS: Still remarkable for wheezes, but she still continues to improve slowly over each day. HEART: Regular rhythm. ABDOMEN: Soft. VITAL SIGNS: This afternoon, heart rate is 84, respiratory rate 16, oximetry is 94% on room air. IMPRESSION: 1. Status asthmaticus. 2. Chest radiograph reviewed today. Her chest radiograph has seen no new infiltrates that are worri some. LABORATORY DATA: White count is 28.7, hemoglobin 13, platelets 243. She only has 4% bands. I suspe ct this is steroid induced neutrophilia. PLAN: Discontinue her IV steroids, place her on p.o. prednisone, continue with other medications. C ontinue to increase her activity, probably discontinue her IV antibiotics tomorrow.
[2017-12-29] MEDS: Phenergan/Codeine 10-6.25mg/5ml UDCUP PO SCH ×5 (05:43→21:57)
[2017-12-29] MEDS: Benzonatate 100 MG CAP PO SCH ×3 (05:43→17:41)
[2017-12-29] MEDS: Acetaminophen 325 MG TAB PO SCH ×3 (05:44→17:42)
[2017-12-29 06:15] LABS: Hemoglobin 13.3 g/dL (12.0-16.0); Lymphocytes 18 % (21-51); MDiff Complete? YES; Mean Corpuscular HGB CONC 33.7 g/dL (32.0-36.0); Mean Corpuscular Hemoglobin 31.5 pg (27.0-31.0); Mean Corpuscular Volume 93.3 fL (78.0-98.0); Mean Platelet Volume 8.1 fL (7.4-10.4); Monocytes 14 % (0-10); Neutrophil 68 % (42-75); Platelet Count 236 thou/uL (130-400); RBC Distribution Width 11.7 % (11.5-14.5); Red Blood Cell (RBC) Count 4.23 mill/uL (4.20-5.40); White Blood Cell (WBC) Count 33.4 thou/uL (4.8-10.8)
[2017-12-29] MEDS: Budesonide 0.5 MG/2 ML NEB NEB SCH ×2 (06:44→18:13)
[2017-12-29] MEDS: predniSONE 20 MG TAB PO SCH (08:44)
[2017-12-29] MEDS: metFORMIN 500 MG TAB PO SCH ×2 (08:44→17:41)
[2017-12-29] MEDS: Alogliptin 25 MG TAB PO SCH (08:44)
[2017-12-29] MEDS: Lubiprostone 24 MCG CAP PO SCH ×2 (08:45→20:36)
[2017-12-29] MEDS: Nebivolol HCl 5 MG TAB PO SCH (08:45)
[2017-12-29] MEDS: guaiFENesin ER 600 MG TAB PO SCH ×2 (08:46→20:32)
[2017-12-29] MEDS: cloNIDine 0.2 MG TAB PO SCH ×2 (08:46→20:32)
[2017-12-29] MEDS: Fluticasone Propionate Nasal Spray 16 gm Bottle NASAL SCH (08:47)
[2017-12-29] MEDS: Amlodipine 10 MG TAB PO SCH (08:47)
[2017-12-29] MEDS: Doxycycline 100 MG CAP PO SCH ×2 (08:47→20:32)
[2017-12-29] MEDS: Hydrochlorothiazide 25 MG TAB PO SCH (08:47)
[2017-12-29] MEDS: Insulin Glargine 30 UNITS in Pre-Filled Syringe 1 EACH SC SCH (08:48)
[2017-12-29] MEDS: HYDROcodone/Acetaminophen 5/325 mg Tablet PO PRN (09:05)
[2017-12-29] MEDS ORDERED: BEER 1 CAN PO SCH (12:00)
--- NOTE | 2017-12-29 14:05 | PRG ---
DATE OF SERVICE: 12/29/2017 SUBJECTIVE: The patient is feeling somewhat better, but is bothered by a cough. PHYSICAL EXAMINATION: VITAL SIGNS: On exam, temperature is 98.1, pulse 79, respirations 16, O2 sat 96% on room air, blood pressure 151/70. HEENT EXAM: Unremarkable. NECK: No JVD. CHEST: Fairly clear anteriorly. CARDIOVASCULAR: S1 and S2, regular. ABDOMEN: Soft, nontender. EXTREMITIES: No edema. IMAGING: Chest x-ray from yesterday was fairly clear. ASSESSMENT: Status asthmaticus, which appears to be improving, aside from the cough. PLAN: Continue antibiotics, nebulization treatments, and steroids. Hopefully, she can go home by to section.
[2017-12-30] MEDS: Acetaminophen 325 MG TAB PO SCH ×4 (00:06→17:32)
[2017-12-30] MEDS: Benzonatate 100 MG CAP PO SCH ×4 (00:06→17:33)
[2017-12-30 05:39] LABS: Band 1 % (5-11); Hemoglobin 13.9 g/dL (12.0-16.0); Lymphocytes 9 % (21-51); MDiff Complete? YES; Mean Corpuscular HGB CONC 34.1 g/dL (32.0-36.0); Mean Corpuscular Hemoglobin 31.8 pg (27.0-31.0); Mean Corpuscular Volume 93.1 fL (78.0-98.0); Mean Platelet Volume 8.4 fL (7.4-10.4); Monocytes 6 % (0-10); Neutrophil 84 % (42-75); Platelet Count 222 thou/uL (130-400); RBC Distribution Width 11.6 % (11.5-14.5); Red Blood Cell (RBC) Count 4.38 mill/uL (4.20-5.40); White Blood Cell (WBC) Count 31.2 thou/uL (4.8-10.8)
[2017-12-30] MEDS: Phenergan/Codeine 10-6.25mg/5ml UDCUP PO SCH ×5 (06:06→22:24)
[2017-12-30] MEDS: Budesonide 0.5 MG/2 ML NEB NEB SCH ×2 (06:44→18:33)
[2017-12-30] MEDS: predniSONE 20 MG TAB PO SCH (09:06)
[2017-12-30] MEDS: metFORMIN 500 MG TAB PO SCH ×2 (09:06→17:33)
[2017-12-30] MEDS: guaiFENesin ER 600 MG TAB PO SCH ×2 (09:07→20:40)
[2017-12-30] MEDS: Doxycycline 100 MG CAP PO SCH ×2 (09:07→20:41)
[2017-12-30] MEDS: Lubiprostone 24 MCG CAP PO SCH ×2 (09:08→20:41)
[2017-12-30] MEDS: Alogliptin 25 MG TAB PO SCH (09:08)
[2017-12-30] MEDS: Nebivolol HCl 5 MG TAB PO SCH (09:08)
[2017-12-30] MEDS: Hydrochlorothiazide 25 MG TAB PO SCH (09:08)
[2017-12-30] MEDS: Amlodipine 10 MG TAB PO SCH (09:09)
[2017-12-30] MEDS: cloNIDine 0.2 MG TAB PO SCH ×2 (09:10→20:42)
[2017-12-30] MEDS: Fluticasone Propionate Nasal Spray 16 gm Bottle NASAL SCH (09:11)
[2017-12-30] MEDS: Insulin Glargine 30 UNITS in Pre-Filled Syringe 1 EACH SC SCH (09:15)
[2017-12-30] MEDS: HYDROcodone/Acetaminophen 5/325 mg Tablet PO PRN ×2 (10:37→22:23)
--- NOTE | 2017-12-30 12:00 | PRG ---
DATE OF SERVICE: 12/23/2017 Ms. Sun has no new complaints. She is still coughing. PHYSICAL EXAMINATION: VITAL SIGNS: Her vital signs remain stable. LUNGS: Her lungs are still remarkable for diffuse mild wheezes. HEART: Regular rhythm. ABDOMEN: Soft. IMPRESSION: Status asthmaticus, slowly improving. PLAN: Continue current care. We will gradually decrease steroids and convert her to p.o. and then s he can probably go home within the next 3-4 days, hopefully.
[2017-12-30] MEDS: Ipratropium Bromide 0.06% Nasal Inhaler 15ml NASAL SCH ×2 (15:00→20:43)
--- NOTE | 2017-12-30 15:27 | CT ---
CT OF THE PARANASAL SINUSES WITHOUT IV COTNRAST: INDICATION: History of possible sinusitis. FINDINGS: There is some mucosal thickening and air fluid levels present within the inferior aspect of the maxil estephania sinuses which can be seen with an acute sinusitis. There is postsurgical change involving the o steomeatal units bilaterally. There is also some postsurgical change of partial resection of the ethm oid air cells. Mild mucosal thickening is seen within the ethmoid air cells as well as the sphenoid sinus. Mild mucosal thickening is seen within the frontal sinus. Visualized aspects of the intracranial contents are within normal limits. The globes are intact. Th e lenses are in place. The retroorbital fat is within normal limits. IMPRESSION: 1. Areas of mucosal thickening and air fluid levels in both maxillary sinuses can be seen with acute sinusitis. 2. Postsurgical change of the paranasal sinuses. 3. Mild mucosal thickening within the ethmoid air cells, frontal sinus, and the sphenoid sinus. POS: [facility]
--- NOTE | 2017-12-30 16:50 | PRG ---
DATE OF SERVICE: 12/30/2017 Ms. Sun continues to complain of a cough, but her lungs have cleared up completely now. Vital signs are stable. Heart: Regular rhythm. Abdomen is soft. I suspect some of this cough is sinus drainage induced. CT of her sinuses today prior to discharge. We will start her on nasal ipratropium. Hopefully, we can discharge her in the morning. I will be happy to follow her as an outpatient.
[2017-12-31] MEDS: Benzonatate 100 MG CAP PO SCH ×5 (00:36→22:57)
[2017-12-31] MEDS: Acetaminophen 325 MG TAB PO SCH ×5 (00:37→22:57)
[2017-12-31] MEDS: Phenergan/Codeine 10-6.25mg/5ml UDCUP PO SCH ×5 (05:45→22:57)
[2017-12-31] MEDS: Budesonide 0.5 MG/2 ML NEB NEB SCH ×2 (05:52→18:55)
[2017-12-31 06:24] LABS: Band 8 % (5-11); Hemoglobin 13.5 g/dL (12.0-16.0); Lymphocytes 20 % (21-51); MDiff Complete? YES; Mean Corpuscular HGB CONC 33.8 g/dL (32.0-36.0); Mean Corpuscular Volume 94.5 fL (78.0-98.0); Mean Platelet Volume 8.6 fL (7.4-10.4); Monocytes 7 % (0-10); Neutrophil 65 % (42-75); Platelet Count 250 thou/uL (130-400); RBC Distribution Width 11.8 % (11.5-14.5); Red Blood Cell (RBC) Count 4.23 mill/uL (4.20-5.40); White Blood Cell (WBC) Count 33.7 thou/uL (4.8-10.8)
[2017-12-31] MEDS ORDERED: Calcium Carbonate 500 MG ChewTAB PO PRN (08:23)
[2017-12-31] MEDS ORDERED: Calcium Carbonate 500 MG ChewTAB PO SCH (08:30)
[2017-12-31] MEDS: Nebivolol HCl 5 MG TAB PO SCH (08:57)
[2017-12-31] MEDS: cloNIDine 0.2 MG TAB PO SCH ×2 (08:57→20:28)
[2017-12-31] MEDS: Hydrochlorothiazide 25 MG TAB PO SCH (08:57)
[2017-12-31] MEDS: Doxycycline 100 MG CAP PO SCH ×2 (08:59→20:28)
[2017-12-31] MEDS: Amlodipine 10 MG TAB PO SCH (08:59)
[2017-12-31] MEDS: predniSONE 20 MG TAB PO SCH (08:59)
[2017-12-31] MEDS: metFORMIN 500 MG TAB PO SCH ×2 (09:01→17:40)
[2017-12-31] MEDS: Insulin Glargine 30 UNITS in Pre-Filled Syringe 1 EACH SC SCH (09:01)
[2017-12-31] MEDS: guaiFENesin ER 600 MG TAB PO SCH ×2 (09:01→20:28)
[2017-12-31] MEDS: Alogliptin 25 MG TAB PO SCH (09:01)
[2017-12-31] MEDS: Lubiprostone 24 MCG CAP PO SCH ×2 (09:16→20:28)
[2017-12-31] MEDS: Fluticasone Propionate Nasal Spray 16 gm Bottle NASAL SCH (09:33)
[2017-12-31] MEDS: HYDROcodone/Acetaminophen 5/325 mg Tablet PO PRN ×2 (11:15→22:57)
[2017-12-31] MEDS: Insulin Regular 300 UNITS/3 ML VIAL SC PRN (12:38)
[2018-01-01 00:18] VITALS: TEMP 98
--- NOTE | 2018-01-01 01:45 | PRG ---
DATE OF SERVICE: 12/31/2017 Ms. Sun is not wheezing anymore. Her only complaint is cough and chest pain when she coughs. PHYSICAL EXAMINATION: VITAL SIGNS: She is afebrile, heart rate is 86, respiratory rate 16, oximetry is 94% on room air, bl ood pressure 140/66. LUNGS: Clear. HEART: Regular rhythm. ABDOMEN: Soft. CT yesterday to see if she had any evidence of sinuses. She does have some findings of a cute sinusitis, but certainly did not have a terribly looking CT. IMPRESSION: Status post asthmaticus, slowly resolving with ongoing cough which likely multifactorial , i.e., sinus drainage, reflux and asthma mediated. PLAN: Discharge home in the morning.
[2018-01-01] MEDS: Phenergan/Codeine 10-6.25mg/5ml UDCUP PO SCH ×2 (05:08→09:13)
[2018-01-01] MEDS: Acetaminophen 325 MG TAB PO SCH (05:08)
[2018-01-01] MEDS: Benzonatate 100 MG CAP PO SCH (05:08)
[2018-01-01] MEDS: Budesonide 0.5 MG/2 ML NEB NEB SCH (07:49)
[2018-01-01] MEDS: guaiFENesin ER 600 MG TAB PO SCH (09:14)
[2018-01-01] MEDS: Doxycycline 100 MG CAP PO SCH (09:15)
[2018-01-01] MEDS: metFORMIN 500 MG TAB PO SCH (09:15)
[2018-01-01] MEDS: cloNIDine 0.2 MG TAB PO SCH (09:16)
[2018-01-01] MEDS: predniSONE 20 MG TAB PO SCH (09:16)
[2018-01-01] MEDS: Insulin Glargine 30 UNITS in Pre-Filled Syringe 1 EACH SC SCH (09:17)
[2018-01-01] MEDS: Hydrochlorothiazide 25 MG TAB PO SCH (09:17)
[2018-01-01] MEDS: Amlodipine 10 MG TAB PO SCH (09:19)
[2018-01-01] MEDS: Lubiprostone 24 MCG CAP PO SCH (09:20)
[2018-01-01] MEDS: HYDROcodone/Acetaminophen 5/325 mg Tablet PO PRN (09:24)
[2018-01-01] MEDS: Alogliptin 25 MG TAB PO SCH (09:31)
[2018-01-01] MEDS: Fluticasone Propionate Nasal Spray 16 gm Bottle NASAL SCH (09:31)
[2018-01-01 09:34] VITALS: BP 140/66
[2018-01-01] MEDS: Nebivolol HCl 5 MG TAB PO SCH (09:48)
== END 2018-01-01 10:05 | disposition home or self-care (01) | DRG 194 ==
LOC: ERS 13:42 → OBSVTOIN 16:55 → 2SW 16:55 → T4-A 20:51
PROVIDERS: ADMIT Specialist; ATTEND Specialist
DX: J18.0 Bronchopneumonia, unspecified organism (principal); J45.901 Unspecified asthma with (acute) exacerbation; J45.902 Unspecified asthma with status asthmaticus; I10 Essential (primary) hypertension; E78.5 Hyperlipidemia, unspecified; E11.9 Type 2 diabetes mellitus without complications; M54.9 Dorsalgia, unspecified; G89.29 Other chronic pain; F41.9 Anxiety disorder, unspecified; J32.9 Chronic sinusitis, unspecified; F32.9 Major depressive disorder, single episode, unspecified; N32.81 Overactive bladder; M25.561 Pain in right knee; Z79.4 Long term (current) use of insulin; Z88.0 Allergy status to penicillin; Z90.710 Acquired absence of both cervix and uterus; Z90.49 Acquired absence of other specified parts of digestive tract
CPT/HCPCS: 36415; 36416; 71045; 71046; 76700; 76770; 80048; 80053; 81003; 82550; 82553; 83605; 83735; 83880; 84484; 85025; 87040; 87086; 90471; 90670; 93005; 94640; 96361; 96365; 96366; 96367; 96375; A4216; G0009; J0456; J0696; J1815; J1956; J2920; J2930; J3010; J3475; J7050; J7506; J7608; J7611; J7620; J7626

== ENCOUNTER 2018-01-03 09:36 | Emergency (ER) | payer OTHER | END 2018-01-03 10:19 | disposition home or self-care (01) | LOC: ERS 09:36 | DX: N76.2 Acute vulvitis (principal); F32.9 Major depressive disorder, single episode, unspecified; E11.9 Type 2 diabetes mellitus without complications; I10 Essential (primary) hypertension; J45.909 Unspecified asthma, uncomplicated; Z79.4 Long term (current) use of insulin; Z79.899 Other long term (current) drug therapy | CPT/HCPCS: 87252; 99283 ==

== ENCOUNTER 2018-01-19 10:38 | Outpatient (CLI) | payer OTHER ==
--- NOTE | 2018-01-19 11:33 | RAD ---
PA AND LATERAL VIEWS OF THE CHEST: HISTORY: Dyspnea. FINDINGS: Comparison is made with the exam of 12/28/17. The heart size is borderline. Stable parenchymal changes are again seen in the left lung base. NO l obar consolidation, pneumothoraces, or large effusions are identified. IMPRESSION: Stale exam. POS: [facility]
== END 2018-01-19 10:39 | disposition home or self-care (01) ==
LOC: RAD 10:38
PROVIDERS: ATTEND Internal Medicine Critical Care Medicine
DX: R06.00 Dyspnea, unspecified (principal)
CPT/HCPCS: 71046

== ENCOUNTER 2018-02-01 09:57 | Emergency (ER) | payer OTHER ==
--- NOTE | 2018-02-01 10:25 | RAD ---
CHEST 1 VIEW: HISTORY: Cough. COMPARISON: Chest radiograph 01/19/2018. FINDINGS: Mild increased cardiophrenic fat pad. No focal airspace consolidation, pneumothorax, or effusion. N o acute osseous abnormality. IMPRESSION: No acute intrathoracic abnormality. POS: [facility]
[2018-02-01 11:07] LABS: #Basophils 0.1 thou/uL (0.0-0.2); #Eosinphils 0.2 thou/uL (0.0-0.7); #Lymphocytes 3.8 thou/uL (1.20-3.40); #Monocytes 1.5 thou/uL (0.11-0.59); #Neutrophils 8.1 thou/uL (1.40-6.50); %Basophils 0.5 % (0.0-1.0); %Eosinophils 1.5 % (0.0-10.0); %Lymphocytes 27.9 % (21.0-51.0); %Monocytes 11.1 % (0.0-10.0); %Neutrophils 59.1 % (42.0-75.0); Hemoglobin 11.6 g/dL (12.0-16.0); Mean Corpuscular HGB CONC 32.5 g/dL (32.0-36.0); Mean Corpuscular Hemoglobin 30.7 pg (27.0-31.0); Mean Corpuscular Volume 94.5 fL (78.0-98.0); Mean Platelet Volume 7.5 fL (7.4-10.4); Platelet Count 271 thou/uL (130-400); RBC Distribution Width 12.6 % (11.5-14.5); Red Blood Cell (RBC) Count 3.79 mill/uL (4.20-5.40); White Blood Cell (WBC) Count 13.7 thou/uL (4.8-10.8)
[2018-02-01 11:24] LABS: ALT (SGPT) 18 U/L (8-55); AST (SGOT) 17 U/L (5-34); Albumin 3.9 g/dL (3.4-4.8); Alkaline Phosphatase 75 U/L (40-150); Anion Gap 13 mmol/L (10-20); BUN (Urea Nitrogen) 14 mg/dL (9.8-20.1); Bilirubin, Total 0.4 mg/dL (0.2-1.2); Calc. Creatinine Clearance 0 mL/min (70-130); Calcium 9.7 mg/dL (7.8-10.44); Carbon Dioxide 24 mmol/L (23-31); Chloride 109 mmol/L (98-107); Estimated GFR-MDRD 85; Globulin 3.1 g/dL (2.4-3.5); Glucose 191 mg/dL (80-115); Potassium 4.8 mmol/L (3.5-5.1); Sodium 141 mmol/L (136-145)
== END 2018-02-01 11:30 | disposition home or self-care (01) ==
LOC: ERS 09:57
DX: J40 Bronchitis, not specified as acute or chronic (principal); E11.9 Type 2 diabetes mellitus without complications; I10 Essential (primary) hypertension; J45.909 Unspecified asthma, uncomplicated; F32.9 Major depressive disorder, single episode, unspecified
CPT/HCPCS: 36415; 71045; 80053; 83880; 85025; 94640; J7620

== ENCOUNTER 2018-03-03 14:25 | Emergency (ER) | payer OTHER ==
--- NOTE | 2018-03-03 15:27 | RAD ---
TWO VIEWS CHEST: Comparison: 12-28-17 History: Cough for two months. FINDINGS: Two views of the chest show normal sized cardiomediastinal silhouette. There is no evidence of consol idation, mass, or pleural effusion. The bones are unremarkable. IMPRESSION: No evidence of acute cardiopulmonary disease. POS: [facility]
[2018-03-03 15:33] LABS: #Eosinphils 0.2 thou/uL (0.0-0.7); #Lymphocytes 2.7 thou/uL (1.20-3.40); #Monocytes 1.5 thou/uL (0.11-0.59); #Neutrophils 6.5 thou/uL (1.40-6.50); %Basophils 0.4 % (0.0-1.0); %Eosinophils 2.1 % (0.0-10.0); %Lymphocytes 24.6 % (21.0-51.0); %Monocytes 13.3 % (0.0-10.0); %Neutrophils 59.7 % (42.0-75.0); Hemoglobin 11.6 g/dL (12.0-16.0); Mean Corpuscular HGB CONC 31.7 g/dL (32.0-36.0); Mean Corpuscular Hemoglobin 30.5 pg (27.0-31.0); Mean Corpuscular Volume 96.1 fL (78.0-98.0); Mean Platelet Volume 7.7 fL (7.4-10.4); Platelet Count 246 thou/uL (130-400); RBC Distribution Width 12.5 % (11.5-14.5); Red Blood Cell (RBC) Count 3.79 mill/uL (4.20-5.40); White Blood Cell (WBC) Count 10.9 thou/uL (4.8-10.8)
[2018-03-03 15:53] LABS: ALT (SGPT) 15 U/L (8-55); AST (SGOT) 13 U/L (5-34); Alkaline Phosphatase 70 U/L (40-150); Anion Gap 12 mmol/L (10-20); BUN (Urea Nitrogen) 26 mg/dL (9.8-20.1); Bilirubin, Total 0.2 mg/dL (0.2-1.2); Calc. Creatinine Clearance 0 mL/min (70-130); Calcium 9.9 mg/dL (7.8-10.44); Carbon Dioxide 25 mmol/L (23-31); Chloride 110 mmol/L (98-107); Estimated GFR-MDRD 64; Globulin 2.7 g/dL (2.4-3.5); Glucose 97 mg/dL (80-115); Potassium 4.3 mmol/L (3.5-5.1); Protein, Total 6.7 g/dL (6.0-8.3); Sodium 143 mmol/L (136-145)
[2018-03-03 15:55] LABS: Troponin I Less than 0.010 ng/mL (< 0.028)
== END 2018-03-03 16:11 | disposition home or self-care (01) ==
LOC: ERS 14:25
DX: R05 Cough (principal); E11.9 Type 2 diabetes mellitus without complications; I10 Essential (primary) hypertension; J45.909 Unspecified asthma, uncomplicated; F32.9 Major depressive disorder, single episode, unspecified; Z79.899 Other long term (current) drug therapy
CPT/HCPCS: 36415; 71046; 80053; 84484; 85025; 93005; 94640; J7620

== ENCOUNTER 2018-04-01 11:39 | Emergency (ER) | payer OTHER | END 2018-04-01 12:51 | disposition home or self-care (01) | LOC: ERS 11:39 | DX: R05 Cough (principal) | CPT/HCPCS: 99283 ==

== ENCOUNTER 2018-04-02 09:28 | Outpatient (CLI) | payer OTHER ==
--- NOTE | 2018-04-02 10:10 | RAD ---
TWO VIEWS CHEST: Date: 04-02-18 Comparison: 03-03-18 History: Shortness of breath. FINDINGS: There is prominence of the cardiac silhouette. There is pulmonary vasculature congestion. There is no pneumothorax, pleural fluid, lobar consolidation or alveolar edema. There is elevation of the left h emidiaphragm posterolaterally. IMPRESSION: No acute findings. POS: [facility]
== END 2018-04-02 09:29 | disposition home or self-care (01) ==
LOC: RAD 09:28
PROVIDERS: ATTEND Internal Medicine Critical Care Medicine
DX: R06.00 Dyspnea, unspecified (principal)
CPT/HCPCS: 71046

== ENCOUNTER 2018-04-30 10:29 | Outpatient (CLI) | payer OTHER ==
--- NOTE | 2018-04-30 12:06 | RAD ---
TWO VIEW CHEST: History: Dyspnea. Comparison: 04-02-18 FINDINGS: Mild cardiomegaly is stable. The lungs appear clear of infiltrate. Elevations are eventration of the posterior left hemidiaphragm as previously described and again noted. Posterior gutters are poorly de fined on the lateral view. Osseous structures unremarkable and unchanged. IMPRESSION: No evidence of interval change from 04-02-18. Evidence of eventration of the posterior left hemidiaphr agm. The posterior gutters are obscured. If there is concern of basilar infiltrate, consider chest CT . POS: [facility]
== END 2018-04-30 10:30 | disposition home or self-care (01) ==
LOC: RAD 10:29
PROVIDERS: ATTEND Internal Medicine Critical Care Medicine
DX: R06.00 Dyspnea, unspecified (principal); Q79.1 Other congenital malformations of diaphragm
CPT/HCPCS: 71046

== ENCOUNTER 2018-05-09 10:07 | Emergency (ER) | payer OTHER | END 2018-05-09 11:32 | disposition home or self-care (01) | LOC: ERS 10:07 | DX: R05 Cough (principal); E10.9 Type 1 diabetes mellitus without complications; I10 Essential (primary) hypertension; J45.909 Unspecified asthma, uncomplicated; F32.9 Major depressive disorder, single episode, unspecified; Z79.899 Other long term (current) drug therapy | CPT/HCPCS: 99281 ==

== ENCOUNTER 2018-07-11 10:16 | Emergency (ER) | payer OTHER ==
--- NOTE | 2018-07-11 10:50 | RAD ---
CHEST 1 VIEW: Date: 07/11/18 HISTORY: Shortness of breath and cough. COMPARISON: 02/01/18. FINDINGS: Heart size is within normal limits. Focal right hemidiaphragm elevation. Mild biapical pleural thicke lavell. No confluent pneumonia, overt edema, or pleural effusion. IMPRESSION: No acute intrathoracic disease. Stable from prior study. POS: [facility]
[2018-07-11] MEDS ORDERED: Acetaminophen 325 MG TAB ONE (11:25)
[2018-07-11] MEDS ORDERED: Dexamethasone 10 MG/ML VIAL ONE (11:44)
[2018-07-11] MEDS ORDERED: Ketorolac Tromethamine 30 MG/ML VIAL ONE (11:44)
[2018-07-11] MEDS ORDERED: Acetaminophen/Codeine 30-300mg Tablet ONE (12:06)
== END 2018-07-11 12:38 | disposition home or self-care (01) ==
LOC: ERS 10:16
DX: R05 Cough (principal); E10.9 Type 1 diabetes mellitus without complications; I10 Essential (primary) hypertension; J45.909 Unspecified asthma, uncomplicated; F32.9 Major depressive disorder, single episode, unspecified
CPT/HCPCS: 71045; 87804; 93005; 94640; 96374; 96375; J1100; J1885; J7620

== ENCOUNTER 2018-07-23 16:48 | Emergency (ER) | payer OTHER ==
[2018-07-23] MEDS ORDERED: Ibuprofen 800 MG TAB ONE (18:00)
[2018-07-23] MEDS ORDERED: Acetaminophen 500 MG TAB ONE (18:30)
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
== END 2018-07-23 18:37 | disposition home or self-care (01) ==
LOC: ERS 16:48
DX: M54.5 Low back pain (principal); I10 Essential (primary) hypertension; E10.9 Type 1 diabetes mellitus without complications; J45.909 Unspecified asthma, uncomplicated; F32.9 Major depressive disorder, single episode, unspecified; V89.2XXA Person injured in unspecified motor-vehicle accident, traffic, initial encounter
CPT/HCPCS: 72100

== ENCOUNTER 2018-08-27 10:40 | Outpatient (CLI) | payer OTHER ==
--- NOTE | 2018-08-27 10:54 | RAD ---
EXAM: Chest 2 views: HISTORY: Dyspnea COMPARISON: 04/30/2018 FINDINGS: Stable mild hemidiaphragm elevation and costophrenic angle blunting. Mild stable biapical pleural thickening. Heart size:Borderline enlarged. Lungs:Clear of acute process. Atherosclerotic changes of the aorta. No confluent pneumonia, overt edema, pleural effusion, pneumothorax, or other significant acute proce ss. IMPRESSION: Stable-appearing chronic changes. Atherosclerosis of the aorta. No acute intrathoracic disease.
== END 2018-08-27 10:41 | disposition home or self-care (01) ==
LOC: RAD 10:40
PROVIDERS: ATTEND Internal Medicine Critical Care Medicine
DX: R06.00 Dyspnea, unspecified (principal); I70.0 Atherosclerosis of aorta
CPT/HCPCS: 71046

== ENCOUNTER 2018-09-24 09:10 | Outpatient (CLI) | payer OTHER ==
--- NOTE | 2018-09-24 10:22 | CT ---
CT of the thorax without IV contrast INDICATION: High-resolution CT evaluation for a history of shortness of breath, cough and asthma TECHNIQUE: Multiple noncontrast CT images were obtained of the thorax utilizing a high-resolution CT protocol with patient in both the supine and prone position. COMPARISON: CT of the thorax dated November 18, 2016 FINDINGS: LUNGS: There is stable paraseptal emphysema involving both lung apices. There is a persistent region of interstitial and groundglass opacity seen within the periphery of the lateral segment of the right middle lobe on both the supine and prone images. No additional region of the anterior lobular L 4 intralobular septal thickening is noted. Mediastinum: There are scattered vascular calcifications involving the thoracic aorta aorta. No enlar ged lymph nodes are grossly evident. Additional findings: There is a stable right-sided Bochdalek hernia. Osseous structures: No definite acute osseous abnormality is evident. IMPRESSION: 1. Stable mild paraseptal emphysema involving the lung apices. 2. Persistent region of interstitial and groundglass opacity seen within the peripheral aspect of the lateral segment of the right middle lobe. This is suspicious for focal region of bronchoalveolitis which could be infectious or inflammatory in etiology. Recommend correlation. Follow-up CT evaluation in 6-8 weeks may be helpful to document resolution. 3. Stable large right-sided Bochdalek hernia
== END 2018-09-24 09:11 | disposition home or self-care (01) ==
LOC: CP 09:10 → CT 09:11
PROVIDERS: ATTEND Internal Medicine Critical Care Medicine
DX: J45.909 Unspecified asthma, uncomplicated (principal); J47.9 Bronchiectasis, uncomplicated; R91.8 Other nonspecific abnormal finding of lung field; J43.9 Emphysema, unspecified; Q79.0 Congenital diaphragmatic hernia
CPT/HCPCS: 71250

== ENCOUNTER 2018-09-30 14:39 | Outpatient (CLI) | payer OTHER | END 2018-09-30 14:40 | disposition home or self-care (01) | LOC: ULT 14:39 | PROVIDERS: ATTEND Family Medicine | DX: J47.9 Bronchiectasis, uncomplicated (principal); I08.3 Combined rheumatic disorders of mitral, aortic and tricuspid valves; J90 Pleural effusion, not elsewhere classified | CPT/HCPCS: 93306 ==

== ENCOUNTER 2018-10-13 07:28 | Outpatient (CLI) | payer OTHER ==
--- NOTE | 2018-10-15 16:15 | PFT ---
PATIENT HISTORY: HEIGHT: 61 IN WEIGHT: 174 SMOKER: NO HOW LON YR PACKS PER DAY:1 PRODUCTIVE COUGH: LUNG DISEASE: PHYSICIAN INTERPRETATION FINAL REPORT: Patient had fair effort and good cooperation. PFT data: FVC 1.86 (80%), FEV1 1.38 (76%), FEV1/FVC 0.74. FRC 1.10 (48%), RV 0.80 (46%), TLC2.42 (59%). DLCO 11.79 (61%) There is a reduction to both the FEV1 and FVC. The ratio is suggestive of a restrictive air flow limitation. There is no significant improvement following the administration of a bronchodilator. The patient has a near significant decline in the FVC with bronchodilator. The reduced lung volumes including residual volume and total lung capacity, confirm volume restriction. Diffusion Capacity is mildly impaired. IMPRESSION: Overall, these pulmonary function studies are most consistent with mild restrictive lung disease, and mild reduction in gas exchange. Clinical and radiographic correlation for restrictive lung disease and or interstitial processes, should be considered. Site Surveyor: IVETH Supervisor Transferring [employer]: IVETH CEDEÑO
== END 2018-10-13 07:29 | disposition home or self-care (01) ==
LOC: CP 07:28
PROVIDERS: ATTEND Internal Medicine Critical Care Medicine
DX: J45.909 Unspecified asthma, uncomplicated (principal)
CPT/HCPCS: 94060; 94727; 94729

== ENCOUNTER 2018-11-18 08:06 | Inpatient (IN) | payer OTHER ==
[2018-11-18] MEDS ORDERED: Dexamethasone 10 MG/ML VIAL ONE (08:28)
--- NOTE | 2018-11-18 08:35 | RAD ---
Portable frontal chest radiograph: 11/18/2018 COMPARISON: 08/27/2018 HISTORY: Cough FINDINGS: There is mild pulmonary vascular congestion. Perihilar increased linear interstitial densit y noted, increased as well. Hazy increased density has developed in bilateral lung bases, left greater than right. IMPRESSION: Findings suggesting interval development of pulmonary edema or infectious pneumonitis. Fo llow-up PA and lateral imaging of the chest advised following treatment.
[2018-11-18] MEDS ORDERED: Albuterol Sulfate 2.5 mg/3 ml Neb ONE (08:45)
[2018-11-18 08:50] LABS: #Basophils 0.1 thou/uL (0.0-0.2); #Eosinphils 0.1 thou/uL (0.0-0.7); #Lymphocytes 2.5 thou/uL (1.20-3.40); #Monocytes 1.4 thou/uL (0.11-0.59); #Neutrophils 9.4 thou/uL (1.40-6.50); %Basophils 0.5 % (0.0-1.0); %Eosinophils 0.7 % (0.0-10.0); %Lymphocytes 18.3 % (21.0-51.0); %Monocytes 10.5 % (0.0-10.0); %Neutrophils 69.9 % (42.0-75.0); Hemoglobin 12.4 g/dL (12.0-16.0); Mean Corpuscular HGB CONC 33.8 g/dL (32.0-36.0); Mean Corpuscular Hemoglobin 30.6 pg (27.0-31.0); Mean Corpuscular Volume 90.6 fL (78.0-98.0); Mean Platelet Volume 8.8 fL (7.4-10.4); Platelet Count 233 thou/uL (130-400); RBC Distribution Width 12.2 % (11.5-14.5); Red Blood Cell (RBC) Count 4.05 mill/uL (4.20-5.40); White Blood Cell (WBC) Count 13.4 thou/uL (4.8-10.8)
[2018-11-18 09:07] LABS: ALT (SGPT) 18 U/L (8-55); AST (SGOT) 20 U/L (5-34); Albumin 3.9 g/dL (3.4-4.8); Alkaline Phosphatase 102 U/L (40-150); Anion Gap 16 mmol/L (10-20); BUN (Urea Nitrogen) 7 mg/dL (9.8-20.1); Bilirubin, Total 0.5 mg/dL (0.2-1.2); Calc. Creatinine Clearance 0 mL/min (70-130); Carbon Dioxide 20 mmol/L (23-31); Chloride 110 mmol/L (98-107); Estimated GFR-MDRD 85; Glucose 185 mg/dL (80-115); Potassium 3.5 mmol/L (3.5-5.1); Protein, Total 6.9 g/dL (6.0-8.3); Sodium 142 mmol/L (136-145)
[2018-11-18] MEDS ORDERED: HYDROcodone/Acetaminophen 5/325 mg Tablet ONE (10:11)
[2018-11-18] MEDS ORDERED: Furosemide 40 MG/4 ML VIAL ONE (10:18)
[2018-11-18] MEDS ORDERED: Labetalol HCl 100 MG/20 ML VIAL ONE (10:18)
--- NOTE | 2018-11-18 10:58 | PDOC.FPRHP ---
- History of Present Illness Chief Complaint: sob, cough History of Present Illness: 63 yo F with HLD, resistant HTN here for worsening SOB and cough. Has been going on for past year, worsened last night. Experienced chest pain and unrelenting cough with prompted visit to ED. Endorses lower extremity swelling, orthopnea, dyspnea on exertion. No known dx of heart failure but has appt with Dr. Gutierrez next month. Denies fevers, chills, rhinorrhea, sick contacts. Mildly productive cough with light yellow sputum. Denies family hx of blood clots. PMH of resistant HTN on 3 antihypertensives. Reports BPs at home are fairly well controlled usually in 119s/90s . ED Course: Recevied 40mg IV lasix, 20mg IV lebetalol, norco 5, albuterol & duo NEB , decadron 16mg IV - Allergies/Adverse Reactions Allergies Allergy/AdvReac Type Severity Reaction Status Date / Time Penicillins Allergy Verified 08/14/17 13:18 - Home Medications Medication Instructions Recorded Confirmed Type Amitriptyline HCl [Elavil] 50 mg PO HS 10/28/13 12/19/17 History Esomeprazole Magnesium [NexIUM] 40 mg PO DAILY 10/28/13 12/19/17 History Levemir Flexpen [Levemir FlexPen] 30 unit SC DAILY 10/28/13 12/19/17 History Nebivolol HCl [Bystolic] 10 mg PO DAILY 10/31/15 12/19/17 History cloNIDine HCl 0.2 mg PO BID 11/03/15 12/19/17 History Cefdinir [Omnicef] 300 mg PO BID 08/14/17 12/19/17 History Cyclobenzaprine [Flexeril] 10 mg PO HS 08/14/17 12/19/17 History Linagliptin [Tradjenta] 5 mg PO DAILY 08/14/17 12/19/17 History Lubiprostone [Amitiza] 24 mcg PO BID-WM 08/14/17 12/19/17 History Zolpidem Tartrate [Ambien] 10 mg PO HS 08/14/17 12/19/17 History Acetaminophen With Codeine 1 tablet PO Q6HR PRN 08/19/17 12/19/17 History [Tylenol with Codeine #3] guaiFENesin [Guaifenesin] 1,200 mg PO BID 08/19/17 12/19/17 History Acetaminophen 650 mg PO Q6HR PRN 01/01/18 01/01/18 History Amlodipine [Norvasc] 10 mg PO DAILY #30 tab 01/01/18 Rx Azithromycin [Z-Pack] 0 mg PO DAILY #1 packet 01/01/18 Rx Cefdinir [Omnicef] 300 mg PO BID #20 cap 01/01/18 Rx Fluconazole [Diflucan] 150 mg PO DAILY #1 tablet 01/01/18 Rx Ipratropium [place] [Ipratropium 1 spray EA NARE TID #1 bot 01/01/18 Rx [place] 0.06% Nasal [place]] Promethazine HCl/Codeine 5 ml PO Q6HR PRN #4 syrup 01/01/18 Rx [Prometh-Codein 6.25-10 mg/5 ml] predniSONE 30 mg PO QAM-WM #30 tab 01/01/18 Rx - History PMHx: Depression, OA, resistant HTN, DM2, HLD , asthma PSHx: hysterectomy, right knee surgery, back surgeyr for herniated disc FHx: HTN, DM2 Social: remote hx of social smoking, quit 30-40 years ago - Review of Systems General: denies: fever/chills, weight/appetite/sleep changes Eyes: denies: eye pain, vision changes ENT: denies: nasal congestion, rhinorrhea Respiratory: reports: cough, shortness of breath, exercise intolerance Cardiovascular: reports: chest pain, edema, orthopnea Gastrointestinal: denies: nausea, vomiting, diarrhea, GI bleeding Genitourinary: denies: dysuria, discharge Skin: denies: rashes Musculoskeletal: denies: pain, tenderness, stiffness Neurological: denies: numbness, syncope, seizure Psychological: reports: depression. denies: anxiety - Vital signs BP: 197/91, Pulse: 73, Resp: 18, Pain: 9, O2 sat: 93 on Room Air, Time: 2018 10:29. - Physical Exam Constitutional: NAD, awake, alert and oriented HEENT: normocephalic and atraumatic, PERRLA, EOMI, no scleral icterus Neck: supple, FROM, trachea midline Chest: no-tender to palpation, no lesions Heart: RRR, normal S1/S2, no murmurs/rubs/gallops Lungs: CTAB, no respiratory distress, good air movement -Lungs: fine bibasilar crackles Abdomen: soft, non-tender, bowel sounds present Musculoskeletal: normal structure, normal tone, ROM grossly normal Neurological: no focal deficit, CN II-XII intact Skin: no rash/lesions, good turgor, capillary refill <2 seconds Heme/Lymphatic: no unusual bruising or bleeding, no purpura Psychiatric: normal mood and affect, good judgment and insight, intact recent and remote memory FMR H&P: Results - Labs Result Diagrams: 11/18/18 08:28 11/18/18 08:28 Lab results: WBC 13.4 thou/uL (4.8-10.8) H 11/18/18 08:28 Hgb 12.4 g/dL (12.0-16.0) 11/18/18 08:28 Hct 36.7 % (36.0-47.0) 11/18/18 08:28 MCV 90.6 fL (78.0-98.0) 11/18/18 08:28 Plt Count 233 thou/uL (130-400) 11/18/18 08:28 Neutrophils % 69.9 % (42.0-75.0) 11/18/18 08:28 Sodium 142 mmol/L (136-145) 11/18/18 08:28 Potassium 3.5 mmol/L (3.5-5.1) 11/18/18 08:28 Chloride 110 mmol/L (98-107) H 11/18/18 08:28 Carbon Dioxide 20 mmol/L (23-31) L 11/18/18 08:28 BUN 7 mg/dL (9.8-20.1) L 11/18/18 08:28 Creatinine 0.82 mg/dL (0.6-1.1) 11/18/18 08:28 Glucose 185 mg/dL (80-115) H 11/18/18 08:28 Calcium 10.0 mg/dL (7.8-10.44) 11/18/18 08:28 Total Bilirubin 0.5 mg/dL (0.2-1.2) 11/18/18 08:28 AST 20 U/L (5-34) 11/18/18 08:28 ALT 18 U/L (8-55) 11/18/18 08:28 Alkaline Phosphatase 102 U/L (40-150) 11/18/18 08:28 B-Natriuretic Peptide 573.5 pg/mL (0-100) H 11/18/18 08:28 Serum Total Protein 6.9 g/dL (6.0-8.3) 11/18/18 08:28 Albumin 3.9 g/dL (3.4-4.8) 11/18/18 08:28 - EKG Interpretation EKG: NSR - Radiology Interpretation Chest x-ray Status: image reviewed by me, report reviewed by me Additional comment: pulmonary vacular congestion FMR H&P: A/P - Problem List (1) Acute exacerbation of CHF (congestive heart failure) Current Visit: Yes Status: Acute Code(s): I50.9 - HEART FAILURE, UNSPECIFIED (2) Resistant hypertension Current Visit: Yes Status: Acute Code(s): I10 - ESSENTIAL (PRIMARY) HYPERTENSION (3) Depression Current Visit: Yes Status: Acute Code(s): F32.9 - MAJOR DEPRESSIVE DISORDER , SINGLE EPISODE, UNSPECIFIED (4) Osteoarthritis Current Visit: Yes Status: Acute Code(s): M19.90 - UNSPECIFIED OSTEOARTHRITIS, UNSPECIFIED SITE (5) Asthma Current Visit: Yes Status: Acute Code(s): J45.909 - UNSPECIFIED ASTHMA, UNCOMPLICATED - Plan 63 yo F with resistant HTN here with suspected new onset heart failure #New onset heart failure -BNP 580s, CXR with pulm vascular congestion -s/p 40 IV lasix, continue 40 IV BID since lasix naive -daily weights, strict i/o -trop neg. x1, trend. EKG is NSR -Cardiology consult, TTE pending -New onset heart failure likely a sequelae of resistant HTN, however need to r/ o ischemic causes #Hypertensive urgency -184/90, s/p IV labetalol -suspected fluid overload component -see plan above, IV antihypertensives -Initiate chlorthalidone #Resistant HTN -on 3 antihypertensives -hold bystolic since in acute CHF exacerbation -on clonidine & lisinopril-will discuss changing antihypertensive regimen -start chlorthalidone -consider OP w/u of secondary HTN -IV antihypertensives PRN #Leukocytosis -likely stress reaction, no bands, afebrile -Will check procal to r/o PNA -rpt with AM CBC #MDD -home sertraline #DM2 -sliding scale, home insulin #Asthma -home homeds -Alb NEB PRN -appt with pulm next month -consider COPD with remote hx of smoking & dyspnea code: full PCP: Crystal dispo: >[address] Noe FMR H&P: Upper Level - Plan Date/Time: 11/18/18 0004 I, [], have evaluated this patient and agree with findings/plan as outlined by computer science intern resident. Pertinent changes/additions are listed here. Addendum - Attending - Attending Attestation Date/Time: 11/18/18 3518 I personally evaluated the patient and discussed the management with Dr. Mauricio. I agree with the History, Examination, Assessment and Plan documented above with any addition or exceptions noted below.
[2018-11-18 12:08] LABS: Troponin I Less than 0.010 ng/mL (< 0.028)
[2018-11-18] MEDS ORDERED: Chlorthalidone 25 MG TAB PO SCH (12:15)
[2018-11-18] MEDS ORDERED: Ondansetron ODT 4 MG TAB PO PRN (12:37)
[2018-11-18] MEDS ORDERED: Benzonatate 100 MG CAP ONE (12:52)
[2018-11-18] MEDS: Benzonatate 100 MG CAP PO PRN (12:55)
[2018-11-18] MEDS ORDERED: hydrALAZINE 20 MG/ML VIAL SLOW IVP PRN (13:08)
[2018-11-18] MEDS ORDERED: Dextrose 5% in Water 1,000 ML IV PRN (14:26)
[2018-11-18] MEDS ORDERED: Dextrose 50% Abboject 50 ML SYRINGE SLOW IVP PRN (14:26)
[2018-11-18] MEDS ORDERED: hydrALAZINE 20 MG/ML VIAL ONE (14:35)
[2018-11-18 14:55] LABS: Hemoglobin A1c 7.4 % (4.0-6.0)
[2018-11-18 15:12] LABS: Troponin I Less than 0.010 ng/mL (< 0.028)
[2018-11-18] MEDS: Furosemide 40 MG/4 ML VIAL SLOW IVP SCH (18:00)
[2018-11-18] MEDS: HumaLOG 300 UNITS/3 ML VIAL SC PRN (18:06)
[2018-11-18] MEDS: Lubiprostone 24 MCG CAP PO SCH (18:06)
[2018-11-18] MEDS: cloNIDine 0.2 MG TAB PO SCH (20:04)
--- NOTE | 2018-11-18 20:04 | CON ---
DATE OF CONSULTATION: 11/18/2018 REASON FOR CONSULTATION: Possible heart failure. HISTORY OF PRESENT ILLNESS: Ms. Sun is a very pleasant 63-year-old female, who comes to the hospital for shortness of breath and cough. She tells me that she has been feeling short winded for at least the last year. She has been having this cough as well for the last year. The shortness of breath has been getting worse in the last few months. To the point where yesterday, she was coughing and she could not even sleep. She had to sit up to breathe better. She decided to come in for further evaluation. She denies any fevers or chills. She states that this cough is productive of yellow phlegm, but has not had any blood. No change in the quality of the cough except the more frequent. She received a dose of IV Lasix. Her shortness of breath has not really changed significantly. Cardiology is being consulted to see how much of this is related to her heart. PAST MEDICAL HISTORY: 1. Anxiety and depression. 2. Osteoarthritis. 3. Hypertension, difficult to control. 4. Type 2 diabetes. 5. Hyperlipidemia. 6. Bronchial asthma. 7. Distant history of smoking. PAST SURGICAL HISTORY: 1. Hysterectomy. 2. Right knee surgery. 3. Back surgery for herniated disk. FAMILY HISTORY: No early coronary artery disease, hypertension, or diabetes. SOCIAL HISTORY: Quit smoking about 40 years ago. Social smoking only. No alcohol or drugs. OUTPATIENT MEDICATIONS: 1. Amitriptyline. 2. Nexium. 3. Levemir. 4. Nebivolol 10 mg a day. 5. Clonidine 0.2 mg b.i.d. 6. Cefdinir. 7. Flexeril. 8. Tradjenta. 9. Amitiza. 10. Ambien. 11. Tylenol No. 3. 12. Guaifenesin. 13. Acetaminophen. 14. Norvasc 10 mg a day. 15. Z-Anthony. 16. Omnicef. 17. Diflucan. 18. Ipratropium. 19. Promethazine. 20. Prednisone. These medications are not totally updated. ALLERGIES: PENICILLIN. REVIEW OF SYSTEMS: Twelve-point review of systems was done and was all negative unless stated in history of present illness. PHYSICAL EXAMINATION: VITAL SIGNS: Temperature 97.2, pulse 72, respiratory rate 18, sat 93% on room air, and blood pressure 197/91. GENERAL: Awake, alert, and oriented x3. No distress. HEENT: Normocephalic and atraumatic. NECK: Supple. LUNGS: Clear. CARDIOVASCULAR: S1 and S2. No S3 or S4. There is a grade 2/6 systolic murmur at the right upper sternal border. ABDOMEN: Soft. EXTREMITIES: No edema. SKIN: Warm and dry. LABORATORY DATA: Laboratory work was reviewed. White count of 13, hemoglobin of 12, hematocrit 36, platelet count 233. Chemistries were unremarkable except for chloride of 110, carbon dioxide of 20, BUN and creatinine are normal. GFR of 85. Glucose was 185. Troponin was undetectable x3. BNP was 573, just slight above normal. Procalcitonin is normal at 0.02. Albumin of 3.9. Hemoglobin A1c of 7.4. EKG was reviewed. Most recent echocardiogram was done on September of this year showed an EF of 60% to 65% with grade 2/3 diastolic dysfunction with moderate mitral regurgitation, RVSP of 45 mmHg, and a small pericardial effusion. ASSESSMENT AND PLAN: 1. [id number] diastolic heart failure. 2. Bronchial asthma. 3. Chronic cough. PLAN: 1. Agree with IV diuresis for now. 2. We will repeat echocardiogram to make sure LV function remains normal. 3. Cough sounds like pulmonary in origin. Has seen Dr. Still in the past. 4. Further recommendations per results of echocardiogram. Job ID: [id number] MTDD
[2018-11-18] MEDS ORDERED: Acetaminophen 325 MG TAB PO PRN (22:05)
[2018-11-18] MEDS ORDERED: Ibuprofen 600 MG TAB PO PRN (22:05)
[2018-11-18] MEDS ORDERED: hydrOXYzine Pamoate 25 mg Capsule PO PRN (22:24)
[2018-11-19] MEDS: Furosemide 40 MG/4 ML VIAL SLOW IVP SCH ×2 (05:54→13:17)
[2018-11-19] MEDS: HumaLOG 300 UNITS/3 ML VIAL SC PRN ×2 (05:54→13:20)
[2018-11-19 06:05] LABS: Anion Gap 19 mmol/L (10-20); BUN (Urea Nitrogen) 15 mg/dL (9.8-20.1); Calc. Creatinine Clearance 67 mL/min (70-130); Calcium 10.3 mg/dL (7.8-10.44); Carbon Dioxide 18 mmol/L (23-31); Chloride 102 mmol/L (98-107); Estimated GFR-MDRD 64; Glucose 455 mg/dL (80-115); Potassium 3.7 mmol/L (3.5-5.1); Sodium 135 mmol/L (136-145)
[2018-11-19 06:14] LABS: #Lymphocytes 1.4 thou/uL (1.20-3.40); #Monocytes 1.8 thou/uL (0.11-0.59); #Neutrophils 10.3 thou/uL (1.40-6.50); %Basophils 0.1 % (0.0-1.0); %Eosinophils 0.4 % (0.0-10.0); %Monocytes 13.6 % (0.0-10.0); %Neutrophils 75.9 % (42.0-75.0); Hemoglobin 12.2 g/dL (12.0-16.0); Mean Corpuscular HGB CONC 32.3 g/dL (32.0-36.0); Mean Corpuscular Hemoglobin 30.3 pg (27.0-31.0); Mean Corpuscular Volume 93.8 fL (78.0-98.0); Platelet Count 228 thou/uL (130-400); RBC Distribution Width 12.5 % (11.5-14.5); Red Blood Cell (RBC) Count 4.01 mill/uL (4.20-5.40); White Blood Cell (WBC) Count 13.5 thou/uL (4.8-10.8)
[2018-11-19] MEDS: Lubiprostone 24 MCG CAP PO SCH ×2 (08:59→17:56)
[2018-11-19] MEDS: cloNIDine 0.2 MG TAB PO SCH ×2 (09:00→20:08)
[2018-11-19] MEDS: Chlorthalidone 25 MG TAB PO SCH (09:00)
[2018-11-19] MEDS: guaiFENesin ER 600 MG TAB PO SCH ×2 (09:00→20:08)
[2018-11-19] MEDS: Aspirin Chewable 81 MG TAB PO SCH (09:00)
[2018-11-19] MEDS: Lisinopril 10 MG TAB PO SCH (09:00)
[2018-11-19] MEDS: Insulin Glargine 30 UNITS in Pre-Filled Syringe SC SCH (09:01)
[2018-11-19] MEDS: Benzonatate 100 MG CAP PO PRN (09:08)
--- NOTE | 2018-11-19 09:19 | PDOC.FM ---
- Subjective Subjective: Mrs. Sun appeared well this morning and was ambulating to her bed from the restroom at the time of evaluation. She reports continued chest pain only during cough, SOB, BOWLES, PND, abdominal fullness and LE edema. She reports that her "cough medicines" (likely DuoNeb treatments, Tessalon and Guaifenesin) have been helping, though. Her granddaughter was also present during the evaluation, and stated that the patient appeared at her baseline. The patient denied any significant overnight events, lasting chest pain, N/V/D, fever, chills, and night sweats. - Objective Vital Signs & Weight: Vital Signs (12 hours) Temp Pulse Resp BP Pulse Ox 11/19/18 04:00 98.0 F 91 20 139/65 96 11/18/18 23:41 169/76 H 11/18/18 23:32 86 16 97 Weight Weight 78.018 kg I&O: 11/18/18 11/19/18 11/20/18 06:59 06:59 06:59 Intake Total 920 Output Total 1500 Balance -580 Result Diagrams: 11/19/18 04:53 11/19/18 04:53 Phys Exam - Physical Examination Constitutional: NAD HEENT: moist MMs, oral pharynx no lesions Neck: no JVD, supple, full ROM Respiratory: no wheezing, no rales, no rhonchi, clear to auscultation bilateral Cardiovascular: RRR, no significant murmur, no rub Gastrointestinal: soft, non-tender, no distention Patient thinks that her ABD has been increasingly "full" Musculoskeletal: no edema Patient thinks that her RLE has been swelling Neurological: moves all 4 limbs Psychiatric: normal affect, A&O x 3 Skin: normal turgor, cap refill <2 seconds Dx/Plan (1) Acute exacerbation of CHF (congestive heart failure) Code(s): I50.9 - HEART FAILURE, UNSPECIFIED Status: Acute (2) Asthma Code(s): J45.909 - UNSPECIFIED ASTHMA, UNCOMPLICATED Status: Acute (3) Depression Code(s): F32.9 - MAJOR DEPRESSIVE DISORDER, SINGLE EPISODE, UNSPECIFIED Status : Acute (4) Osteoarthritis Code(s): M19.90 - UNSPECIFIED OSTEOARTHRITIS, UNSPECIFIED SITE Status: Acute (5) Resistant hypertension Code(s): I10 - ESSENTIAL (PRIMARY) HYPERTENSION Status: Acute (6) Bronchitis Code(s): J40 - BRONCHITIS, NOT SPECIFIED ACUTE OR CHRONIC Status: Acute - Plan Plan: 1. Acute on Chronic CHF Exacerbation -Long-term cough with minimal sputum production, increasing fatigue, SOB, BOWLES, PND -CXR: Pulmonary edema vs. Infectious pneumonitis -BNP: 573 -Troponins: <0.01 x3 -Continue fluid diuresis with Furosemide -Encourage incentive spirometry -Echo: Pending -Consider Respiratory Panel -Dr. Alanis (Cardiology) following patient 2. DMI -Insulin Glargine 30 U daily -Mild Sliding Insulin Scale -Pre / Post Prandial Glucose Checks -Heart Healthy / Carb Conscious Diet 3. HTN -Should improve with fluid diuresis -Continue Lisinopril 10 mg PO daily -Continue Clonidine 0.2 mg PO daily -Continue Chlorthalidone 12.5 mg PO daily 4. Depression -Continue home medication regimen Dispo: Hold on Telemetry, continue fluid diuresis and await echo results, coordinate with Cardiology. Addendum - Attending - Attending Attestation Date/Time: 11/19/18 8246 I personally evaluated the patient and discussed the management with Dr. Vaughn. I agree with the History, Examination, Assessment and Plan documented above with any addition or exceptions noted below.
[2018-11-19] MEDS ORDERED: Methocarbamol 500 MG TAB PO PRN (11:12)
[2018-11-19] MEDS: Enoxaparin Sodium 40 MG/0.4 ML SYRINGE SC SCH (11:13)
[2018-11-19] MEDS: traMADol HCl 50 MG TAB PO PRN ×2 (13:15→17:55)
--- NOTE | 2018-11-19 19:35 | PDOC.CTH ---
Cardiology Progress Note - Subjective She is feeling better after diuresis. Cough still there. - Objective Vital Signs Temp Pulse Resp BP BP Pulse Ox 11/19/18 16:24 97.9 F 70 18 128/62 95 11/19/18 12:30 97.8 F 82 18 125/62 94 L 11/19/18 09:00 184/87 H Weight 172 lb 11/18/18 11/19/18 11/20/18 06:59 06:59 06:59 Intake Total 920 Output Total 1500 Balance -580 - Physical Examination General/Neuro: alert & oriented x3, NAD Neck: no JVD present Lungs: CTA, unlabored respirations Heart: RRR Abdomen: NT/ND Extremities: other: (no edema) - Telemetry Telemetry Rhythm: NSR - Labs Result Diagrams: 11/19/18 04:53 11/19/18 04:53 Troponin/CKMB Troponin I Less than 0.010 ng/mL (< 0.028) 11/18/18 14:40 - Assessment/Plan 1. Acute on chronic diastolic CHF. 2. Chronic cough 3. Bronchial asthma 4. HLP. 5. DMT2 PLAN: - Switch to PO lasix. - Seems euvolemic. - Echo pending.
[2018-11-20] MEDS: traMADol HCl 50 MG TAB PO PRN ×2 (00:30→06:29)
[2018-11-20 04:52] LABS: #Eosinphils 0.1 thou/uL (0.0-0.7); #Lymphocytes 4.2 thou/uL (1.20-3.40); #Monocytes 2.3 thou/uL (0.11-0.59); #Neutrophils 12.9 thou/uL (1.40-6.50); %Basophils 0.1 % (0.0-1.0); %Eosinophils 0.5 % (0.0-10.0); %Lymphocytes 21.6 % (21.0-51.0); %Monocytes 11.8 % (0.0-10.0); %Neutrophils 66.1 % (42.0-75.0); Hemoglobin 12.6 g/dL (12.0-16.0); Mean Corpuscular HGB CONC 33.4 g/dL (32.0-36.0); Mean Corpuscular Hemoglobin 30.8 pg (27.0-31.0); Mean Corpuscular Volume 92.2 fL (78.0-98.0); Mean Platelet Volume 8.6 fL (7.4-10.4); Platelet Count 250 thou/uL (130-400); RBC Distribution Width 12.6 % (11.5-14.5); White Blood Cell (WBC) Count 19.6 thou/uL (4.8-10.8)
[2018-11-20 05:09] LABS: Anion Gap 14 mmol/L (10-20); BUN (Urea Nitrogen) 23 mg/dL (9.8-20.1); Calc. Creatinine Clearance 79 mL/min (70-130); Calcium 9.9 mg/dL (7.8-10.44); Carbon Dioxide 23 mmol/L (23-31); Chloride 105 mmol/L (98-107); Estimated GFR-MDRD 77; Glucose 95 mg/dL (80-115); Potassium 3.7 mmol/L (3.5-5.1); Sodium 138 mmol/L (136-145)
--- NOTE | 2018-11-20 06:08 | PDOC.FM ---
- Subjective Subjective: Mrs. Sun appears well and reports no overnight events, although her GERD has flared up since arriving at the hospital. She continues to have SOB during ambulation, but feels that her breathing function has improved greatly since admission and initiation of fluid diuresis. Her chronic back pain is adequately controlled, and she was counseled about the important of a low sodium diet with effective fluid control. Telemetry / Nursing staff reports no overnight events. - Objective Vital Signs & Weight: Vital Signs (12 hours) Temp Pulse Resp BP BP Pulse Ox 11/20/18 03:54 97.8 F 57 L 19 143/67 H 97 11/20/18 00:00 73 161/69 H 97 11/19/18 20:08 126/64 11/19/18 20:00 98.6 F 64 18 126/64 97 Weight Weight 78.018 kg I&O: 11/18/18 11/19/18 11/20/18 06:59 06:59 06:59 Intake Total 920 1680 Output Total 1500 1020 Balance -580 660 Result Diagrams: 11/20/18 04:19 11/20/18 04:19 Phys Exam - Physical Examination Constitutional: NAD HEENT: moist MMs, sclera anicteric, oral pharynx no lesions Neck: no nodes, no JVD, supple, full ROM Respiratory: no wheezing, no rales, no rhonchi, clear to auscultation bilateral Cardiovascular: RRR, no significant murmur, no rub Gastrointestinal: soft, non-tender, no distention Musculoskeletal: no edema, pulses present Neurological: moves all 4 limbs Lymphatic: no nodes Psychiatric: normal affect, A&O x 3 Dx/Plan (1) Acute exacerbation of CHF (congestive heart failure) Code(s): I50.9 - HEART FAILURE, UNSPECIFIED Status: Acute (2) Asthma Code(s): J45.909 - UNSPECIFIED ASTHMA, UNCOMPLICATED Status: Acute (3) Depression Code(s): F32.9 - MAJOR DEPRESSIVE DISORDER, SINGLE EPISODE, UNSPECIFIED Status : Acute (4) Osteoarthritis Code(s): M19.90 - UNSPECIFIED OSTEOARTHRITIS, UNSPECIFIED SITE Status: Acute (5) Resistant hypertension Code(s): I10 - ESSENTIAL (PRIMARY) HYPERTENSION Status: Acute (6) Bronchitis Code(s): J40 - BRONCHITIS, NOT SPECIFIED ACUTE OR CHRONIC Status: Acute - Plan Plan: 1. Acute on Chronic CHF Exacerbation -Long-term cough with minimal sputum production, increasing fatigue, SOB, BOWLES, PND -Most recent WBC (19.6) concerning, evaluate clinically -CXR: Pulmonary edema vs. Infectious pneumonitis -BNP: 573 -Troponins: <0.01 x3 -Continue fluid diuresis with Furosemide -Encourage Incentive Spirometry -11/20 Echo: Results Pending -Transition to PO Lasix -Dr. Alanis (Cardiology) following patient 2. DMI -Insulin Glargine 30 U daily -Mild Sliding Insulin Scale -Pre / Post Prandial Glucose Checks -Heart Healthy / Carb Conscious Diet 3. HTN -Should improve with fluid diuresis -Continue Lisinopril 10 mg PO daily -Continue Clonidine 0.2 mg PO daily -Continue Chlorthalidone 12.5 mg PO daily 4. Depression -Continue home medication regimen Dispo: Monitor for signs of active infection based on recent WBC, continue to hold on Telemetry for cardiac monitoring and fluid diuresis. Await echo results and coordinate DC with Cardiology with modified home medication regimen. Addendum - Attending - Attending Attestation Date/Time: 11/20/18 8266 I personally evaluated the patient and discussed the management with Dr. Vaughn. I agree with the History, Examination, Assessment and Plan documented above with any addition or exceptions noted below. Await TTE and likely d/c
[2018-11-20] MEDS: Furosemide 40 MG/4 ML VIAL SLOW IVP SCH (06:29)
[2018-11-20 06:36] VITALS: BMI 31.7
[2018-11-20] MEDS: Enoxaparin Sodium 40 MG/0.4 ML SYRINGE SC SCH (08:52)
[2018-11-20] MEDS: Insulin Glargine 30 UNITS in Pre-Filled Syringe SC SCH (08:53)
[2018-11-20] MEDS: Lubiprostone 24 MCG CAP PO SCH (08:53)
[2018-11-20] MEDS: guaiFENesin ER 600 MG TAB PO SCH (08:53)
[2018-11-20] MEDS: Aspirin Chewable 81 MG TAB PO SCH (08:53)
[2018-11-20] MEDS: Lisinopril 10 MG TAB PO SCH (08:55)
[2018-11-20] MEDS: cloNIDine 0.2 MG TAB PO SCH (08:56)
[2018-11-20] MEDS: Chlorthalidone 25 MG TAB PO SCH (08:57)
[2018-11-20] MEDS: Furosemide 40 MG TAB PO SCH ×2 (10:36→14:59)
[2018-11-20 16:02] VITALS: BP 111/55; TEMP 97.7
--- NOTE | 2018-11-20 16:13 | PDOC.EVN ---
Event Note - Event Note Event Note: At approximately 1330, the patient reported to nursing staff that she had an episode of "heartburn" after having lunch and a carbonated soda that was similar to the episodes of GERD that she had experienced in the past. She appeared well to her nurse, and was ambulating well down the length of the hallway and interacting normally with staff. I spoke with the patient sometime after, where she again referred to her discomfort as "heartburn", so an additional dose of Protonix 40 mg PO was ordered. She did not appear diaphoretic or tachypneic, and review of her rhythm strip on Telemetry monitors showed her to be at baseline, with a normal sinus rhythm in the low 60s, without ST changes or dysrhythmia. She expressed some hesitancy about being discharged, but she seemed more concerned about being alone at home "in case something happened" since her daughter would be working. I reassured her that I felt that her condition had stabilized, and that I did not feel that her now resolved, acute CHF exacerbation warranted an additional night in the hospital, as this may expose her unnecessarily to nosocomial infections. She continued to expose some hesitancy, but eventually agreed to the plan set out previously, which included monitoring fluid intake, maintaining a low sodium diet, and taking Furosemide 40 mg PO BID.
--- NOTE | 2018-11-20 17:02 | PRG ---
DATE OF SERVICE: 11/20/2018 SUBJECTIVE: Ms. Sun is doing well. She has less shortness of breath present. She has been switched from IV to p.o. Lasix. OBJECTIVE: VITAL SIGNS: Blood pressure 111/55, pulse 58, and temperature 97.1. LUNGS: Mild crackles noted at bases bilaterally. HEART: Regular rate and rhythm. ABDOMEN: Soft, nontender, nondistended. EXTREMITIES: No edema. PERTINENT LABORATORY DATA: Hemoglobin 12.6. Creatinine 0.89. IMPRESSION: 1. [id number] diastolic heart failure. 2. Hyperlipidemia. 3. Diabetes mellitus. RECOMMENDATION: The patient has been switched to p.o. Lasix. She does have mild crackles noted on the bases, but appears to be euvolemic otherwise. No significant edema noted distally. Continue aspirin, chlorthalidone in addition to lisinopril. Metabolic therapy has not been instituted due to bradycardia. Job ID: [id number]
--- NOTE | 2018-11-23 15:29 | DIS ---
DATE OF ADMISSION: 11/18/2018 DATE OF DISCHARGE: 11/20/2018 CONSULTS: 1. Dr. Steven Alanis, Cardiology. 2. Dr. Alejandro Carvajal, Cardiology. PROCEDURES: Chest x-ray performed on 11/18/2018 demonstrated mild pulmonary vascular congestion. Perihilar increased linear interstitial density was noted as well. Findings were suggestive of interval development of pulmonary edema for infectious pneumonitis. Echocardiogram performed on 11/20/2018 revealed an ejection fraction of 60%, normal right ventricular size and function, left atrium was normal, right atrium was normal, mild mitral regurgitation present, structurally normal aortic valve, mild tricuspid regurgitation. ADMISSION DIAGNOSIS: Congestive heart failure. SECONDARY DIAGNOSES: 1. Resistant hypertension. 2. Depression. 3. Osteoarthritis. 4. Asthma. 5. Chronic back pain. DISCHARGE MEDICATIONS: Furosemide 40 mg p.o. b.i.d. HISTORY OF PRESENT ILLNESS/HOSPITAL COURSE: Ms. Sun is a 63-year-old female with hyperlipidemia and resistant hypertension, who presented to the ER for worsening shortness of breath and cough. This has been going on for the past year, worse at night. The patient admits to experiencing chest pain and unrelenting cough which prompted her ED visit. She endorsed lower extremity swelling, orthopnea, dyspnea on exertion, and paroxysmal nocturnal dyspnea. She had no known diagnosis of heart failure, but had an appointment with Dr. Gutierrez, Cardiology, scheduled for next month. She denied fever, chills, rhinorrhea, or sick contact. Her cough was mildly productive of white yellow sputum. She denies a family history of blood clots. PAST MEDICAL HISTORY: Significant for resistant hypertension, on 3 antihypertensive medications. She reported that her blood pressure checked at home was fairly well controlled in the 119s over 90s. She received 40 mg IV Lasix, 20 mg IV labetalol, Jackpot 5, albuterol and DuoNeb treatment as well as decadron 16 mg IV in the ED. Her hospital stay was unremarkable, and her shortness of breath continued to improve during her stay. LABORATORY DATA: Pertinent labs include white blood cell count of 13.4 on admission, elevated to 19.6 on discharge most likely secondary to steroid use, hemoglobin remained stable at 12.6, hematocrit 37.8, platelet count 250. Her troponins were less than 0.01 on 3 separate occasions. Her blood glucose was difficult to control ranging from 322 to 96. It was 149 on discharge. IMAGING STUDIES: One chest x-ray preformed in the emergency department revealed acute on chronic pulmonary edema. Echocardiogram revealed no significant changes from her last echocardiogram which noted a 2/3 reading of diastolic congestive heart failure. The patient continued to complain of GERD during her hospital stay, for which she was given Tums as well as Protonix 40 mg b.i.d. DISPOSITION: Stable. DISCHARGE INSTRUCTIONS: Location: Home. Diet: Heart-healthy, low-sodium, and she was advised to monitor her fluid intake as well as weigh herself daily. Activity: Ad-elizabeth. FOLLOWUP: The patient was encouraged to follow up with the heart failure clinic at [facility] as well as close followup with her primary care physician in 7 days for this event as well as uncontrolled asthma, for which the patient stated she was having increasing difficulty control. Job ID: [id number]
== END 2018-11-20 16:35 | disposition home or self-care (01) | DRG 293 ==
LOC: ERS 08:06 → ERHOLD 10:39 → 2NO 15:39
PROVIDERS: ADMIT Emergency Medicine; ATTEND Emergency Medicine
DX: I11.0 Hypertensive heart disease with heart failure (principal); I16.0 Hypertensive urgency; I50.33 Acute on chronic diastolic (congestive) heart failure; E11.9 Type 2 diabetes mellitus without complications; F32.9 Major depressive disorder, single episode, unspecified; J45.909 Unspecified asthma, uncomplicated; E78.5 Hyperlipidemia, unspecified; M19.90 Unspecified osteoarthritis, unspecified site; K21.9 Gastro-esophageal reflux disease without esophagitis; Z96.651 Presence of right artificial knee joint; Z90.710 Acquired absence of both cervix and uterus; Z87.891 Personal history of nicotine dependence; Z88.0 Allergy status to penicillin
CPT/HCPCS: 36415; 36416; 71045; 80048; 80053; 83036; 83880; 84145; 84484; 85025; 90471; 90732; 93005; 93306; 93798; 94640; 96374; 96375; G0009; J0360; J1100; J1650; J1815; J1940; J7611; J7620; Q0177

== ENCOUNTER 2019-01-21 10:33 | Outpatient (CLI) | payer OTHER ==
[2019-01-21 12:29] LABS: Anion Gap 13 mmol/L (10-20); BUN (Urea Nitrogen) 12 mg/dL (9.8-20.1); Calc. Creatinine Clearance 0 mL/min (70-130); Calcium 9.6 mg/dL (7.8-10.44); Carbon Dioxide 26 mmol/L (23-31); Chloride 106 mmol/L (98-107); Estimated GFR-MDRD 69; Glucose 66 mg/dL (80-115); Potassium 3.8 mmol/L (3.5-5.1); Sodium 141 mmol/L (136-145)
== END 2019-01-21 10:34 | disposition home or self-care (01) ==
LOC: LABBT 10:33
PROVIDERS: ATTEND Neurological Surgery
DX: Z01.812 Encounter for preprocedural laboratory examination (principal); M54.16 Radiculopathy, lumbar region
CPT/HCPCS: 80048

== ENCOUNTER 2019-01-25 05:32 | Day surgery (SDC) | payer OTHER ==
[2019-01-21 10:56] VITALS: BMI 32.0
[2019-01-25] MEDS ORDERED: Levofloxacin 500 mg/D5W 100 ml Premix Bag ONE (06:09)
[2019-01-25] MEDS ORDERED: Clindamycin/D5W 900 mg/50 ml Premix Bag ONE (06:09)
[2019-01-25] MEDS ORDERED: Bupivacaine HCl 0.5%/Epinephrine 1:200,000/PF 30 ml Vial ONE (06:16)
[2019-01-25] MEDS ORDERED: Thrombin 5000 UNITS/5 ML VIAL ONE (06:16)
[2019-01-25] MEDS ORDERED: Midazolam HCl 2 mg/2 ml Vial ONE ×2 (06:40→08:16)
[2019-01-25] MEDS ORDERED: Fentanyl 100 MCG/2 ML VIAL ONE ×3 (06:56→09:15)
[2019-01-25] MEDS ORDERED: SUGAMMADEX SODIUM 200 MG/2 ML VIAL ONE (08:06)
[2019-01-25] MEDS ORDERED: Metoprolol Tartrate 5 MG/5 ML VIAL ONE ×2 (08:31→15:01)
--- NOTE | 2019-01-25 10:52 | OP ---
DATE OF PROCEDURE: 01/25/2019 WOOL DYER: Lázaro Montes PA-C INDICATION: Pain. DIAGNOSIS: Lumbar stenosis with lumbar radiculopathy. PROCEDURES PERFORMED: Bilateral L4-L5 lumbar decompression. ANESTHESIA: General. DESCRIPTION OF PROCEDURE: The patient was brought into the operating room and placed under general anesthesia. She was flipped from the supine to prone position on the operating room table. A linear incision was planned over the L4-L5 segment. After prepping and draping and after an appropriate perioperative pause, the incision was created. The soft tissues were swept away from midline. Self-retaining retractors were placed in the wound for optimal exposure. After confirming the appropriate level with C-arm fluoroscopy, an Adson rongeur was used to remove the spinous process along the inferior aspect of L4 and superior aspect of L5. High-speed cutting drill bit as well as 2, 3, and 4 mm Kerrisons were then used to complete the laminectomy and extend the laminectomy laterally to encompass the medial aspect of the facet joints in order to decompress the lateral recesses at L4-L5 and therefore, the descending L5 nerve roots bilaterally. The wound was irrigated. Hemostasis was maintained throughout. The wound was then closed in anatomic layers and a pressure dressing was applied. There were no known procedural complications. Job ID: [id number]
[2019-01-25] MEDS ORDERED: Lidocaine 1% PF 5 ML VIAL ONE (15:01)
[2019-01-25] MEDS ORDERED: Dexamethasone 20 MG/5 ML VIAL ONE (15:01)
[2019-01-25] MEDS ORDERED: Metoclopramide HCl 10 MG/2 ML VIAL ONE (15:01)
[2019-01-25] MEDS ORDERED: Ketorolac Tromethamine 30 MG/ML VIAL ONE (15:01)
[2019-01-25] MEDS ORDERED: Rocuronium Bromide 10 MG/ML (10ML VIAL) ONE (15:01)
[2019-01-25] MEDS ORDERED: Ondansetron PF 4 MG/2 ML Vial ONE (15:01)
[2019-01-25] MEDS ORDERED: PROPOFOL 200 MG/20 ML VIAL ONE (15:01)
== END 2019-01-25 11:06 | disposition home or self-care (01) ==
LOC: SDC 05:32
PROVIDERS: ATTEND Neurological Surgery
PROC: 0ST20ZZ Resection of Lumbar Vertebral Disc, Open Approach (ICD-10-PCS; principal; 2019-01-25)
DX: M48.061 Spinal stenosis, lumbar region without neurogenic claudication (principal); M54.16 Radiculopathy, lumbar region; I10 Essential (primary) hypertension; E78.5 Hyperlipidemia, unspecified; K21.9 Gastro-esophageal reflux disease without esophagitis; J44.9 Chronic obstructive pulmonary disease, unspecified; Z79.899 Other long term (current) drug therapy; Z87.891 Personal history of nicotine dependence; Z88.0 Allergy status to penicillin
CPT/HCPCS: 36416; 76000; J0670; J1100; J1885; J1956; J2001; J2250; J2405; J2704; J2765; J3010; J3490

== ENCOUNTER 2019-03-08 07:39 | Emergency (ER) | payer OTHER ==
--- NOTE | 2019-03-08 09:23 | RAD ---
PA AND LATERAL CHEST: Date: 03/08/19 HISTORY: Cough and congestion. COMPARISON: 03/03/18 and 01/18/19 exams. FINDINGS: Heart size is upper limits of normal. Mediastinal structures are unremarkable. Slightly prominent epi cardial fat pad is seen along the left heart border. No focal infiltrative process. IMPRESSION: Borderline heart size. No active intrathoracic disease. POS: TPC
== END 2019-03-08 08:36 | disposition home or self-care (01) ==
LOC: ERS 07:39
DX: J06.9 Acute upper respiratory infection, unspecified (principal); E10.9 Type 1 diabetes mellitus without complications; I10 Essential (primary) hypertension; F32.9 Major depressive disorder, single episode, unspecified; Z79.899 Other long term (current) drug therapy
CPT/HCPCS: 71046; J7620

== ENCOUNTER 2019-03-15 09:46 | Emergency (ER) | payer OTHER | END 2019-03-15 10:45 | disposition home or self-care (01) | LOC: ERS 09:46 | DX: R05 Cough (principal); E10.9 Type 1 diabetes mellitus without complications; I10 Essential (primary) hypertension; J45.909 Unspecified asthma, uncomplicated; F32.9 Major depressive disorder, single episode, unspecified | CPT/HCPCS: 99283 ==

== ENCOUNTER 2019-05-24 07:19 | Outpatient (CLI) | payer MEDICARE, MEDICAID ==
--- NOTE | 2019-05-24 10:22 | MRI ---
MRI LUMBAR SPINE WITH AND WITHOUT CONTRAST: INDICATION: History of low back pain following low back surgery with recurrent lumbar radiculopathy. CONTRAST: 60 cc of MultiHance. COMPARISON: Prior MRI lumbar spine dated 12/17/2010. FINDINGS: Bone marrow signal intensity appears within normal limits. There are laminectomy changes at L4-5. There is mild enhancement of the paraspinal musculature near the laminectomy defect site likely indicative of some residual postoperative myositis. Mild subcutan eous edema and reticulation is seen overlying the operative site. No drainable fluid collection is g rossly evident. There is stable hemangioma within L3. The conus terminates at L1. At L5-S1, there is a broad-based bulge with mild facet joint degenerative change and loss of disk spa ce height inducing mild left neural foraminal narrowing which appears stable to the prior exam. At L4-5, there is a broad-based bulge with a superimposed left central or left foraminal protrusion. The protrusion causes severe left lateral recess narrowing with probable impingement of the traversi ng left L5 nerve root. This is best seen on image 30 of series 7 and image 15 of series 4. The disk herniation and disk bulge in addition to the facet degenerative change induce moderate bilateral guero ral foraminal narrowing which has progressed from the prior exam. The broad-based bulge and protrusi on at L4-5 also induces moderate central canal narrowing. At L3-4, there is a broad-based bulge with facet hypertrophy inducing moderate bilateral neural garo inal narrowing, left greater than right. This has progressed from the prior exam. At L2-3, there is a broad-based bulge with facet hypertrophy with no appreciable central canal narrow ing. There is mild neural foraminal narrowing which has mildly progressed from the prior exam. At L1-2, there is no appreciable central canal or neural foraminal narrowing. At T12-L1, there is no appreciable central canal or neural foraminal narrowing. IMPRESSION: 1. Broad-based disk bulge with a suspected recurrent left central to left foraminal disk protrusion causing moderate central canal narrowing with severe left lateral recess narrowing and probable impin gement of the traversing left L5 nerve root. There is moderate bilateral neural foraminal narrowing at this level. 2. Moderate bilateral neural foraminal narrowing at L3-4 with left greater than right. 3. Mild left neural foraminal narrowing at L5-S1. POS: CET
[2019-05-24] MEDS ORDERED: Magnevist 469MG/ML 20 ML VIAL ONE (13:32)
== END 2019-05-24 07:20 | disposition home or self-care (01) ==
LOC: BICMRI 07:19
PROVIDERS: ATTEND Neurological Surgery
DX: M54.16 Radiculopathy, lumbar region (principal); M48.07 Spinal stenosis, lumbosacral region; M48.061 Spinal stenosis, lumbar region without neurogenic claudication; M51.86 Other intervertebral disc disorders, lumbar region
CPT/HCPCS: 72158; 82565; A9579

== ENCOUNTER 2019-05-28 07:36 | Outpatient (CLI) | payer MEDICARE, MEDICAID ==
[2019-05-28 11:32] LABS: #Eosinphils 0.1 thou/uL (0.0-0.7); #Lymphocytes 2.4 thou/uL (1.20-3.40); #Monocytes 1.1 thou/uL (0.11-0.59); %Basophils 0.3 % (0.0-1.0); %Eosinophils 1.1 % (0.0-10.0); %Lymphocytes 24.7 % (21.0-51.0); %Monocytes 11.8 % (0.0-10.0); %Neutrophils 62.3 % (42.0-75.0); Hemoglobin 11.8 g/dL (12.0-16.0); Mean Corpuscular HGB CONC 33.6 g/dL (32.0-36.0); Mean Corpuscular Hemoglobin 31.7 pg (27.0-31.0); Mean Corpuscular Volume 94.3 fL (78.0-98.0); Platelet Count 208 thou/uL (130-400); RBC Distribution Width 12.1 % (11.5-14.5); Red Blood Cell (RBC) Count 3.72 mill/uL (4.20-5.40); White Blood Cell (WBC) Count 9.6 thou/uL (4.8-10.8)
[2019-05-28 11:40] LABS: Anion Gap 10 mmol/L (10-20); BUN (Urea Nitrogen) 14 mg/dL (9.8-20.1); Calc. Creatinine Clearance 0 mL/min (70-130); Calcium 9.5 mg/dL (7.8-10.44); Carbon Dioxide 24 mmol/L (23-31); Chloride 111 mmol/L (98-107); Estimated GFR-MDRD 88; Glucose 80 mg/dL (80-115); Potassium 4.3 mmol/L (3.5-5.1); Sodium 141 mmol/L (136-145)
[2019-05-28 11:54] LABS: INR-International Normal Ratio 0.9
--- NOTE | 2019-05-31 00:14 | EKG ---
Test Reason : Blood Pressure : / mmHG Vent. Rate : 069 BPM Atrial Rate : 069 BPM P-R Int : 158 ms QRS Dur : 074 ms QT Int : 394 ms P-R-T Axes : 070 051 055 degrees QTc Int : 422 ms Normal sinus rhythm Normal ECG When compared with ECG of 18-NOV-2018 08:48, No significant change was found Confirmed by Radha MORAN ([id number]) on 05/31/2019 12:14:19 AM Referred By: SHAJI Confirmed By:Radha MORAN
== END 2019-05-28 07:37 | disposition home or self-care (01) ==
LOC: LABBT 07:36
PROVIDERS: ATTEND Orthopaedic Surgery
DX: Z01.818 Encounter for other preprocedural examination (principal); T84.012A Broken internal right knee prosthesis, initial encounter
CPT/HCPCS: 80048; 85025; 85610; 87081; 93005; 93010

== ENCOUNTER 2019-05-28 10:30 | Inpatient (IN) | payer MEDICARE, MEDICAID ==
[2019-06-04] MEDS ORDERED: Vancomycin HCl 500 MG VIAL ONE (07:55)
[2019-06-04] MEDS ORDERED: Tranexamic Acid 1,000 MG/10 ML VIAL ONE (07:55)
[2019-06-04] MEDS ORDERED: Levofloxacin 500 mg/D5W 100 ml Premix Bag ONE (07:55)
[2019-06-04] MEDS ORDERED: Sodium Chloride 0.9% 100 ML ONE (07:55)
[2019-06-04] MEDS ORDERED: Midazolam HCl 2 mg/ml Syrup 5 ml UD Cup ONE (07:58)
[2019-06-04] MEDS ORDERED: Fentanyl 100 MCG/2 ML VIAL ONE ×4 (07:58→12:52)
[2019-06-04] MEDS ORDERED: Midazolam HCl 2 mg/2 ml Vial ONE ×2 (07:59→08:00)
[2019-06-04] MEDS ORDERED: Promethazine HCl 25 MG/ML VIAL IM PRN ×3 (09:08→12:13)
[2019-06-04] MEDS ORDERED: Ropivacaine HCl/PF 250 ML in Premix Bag 1 BAG NERVE BLCK SCH (09:08)
[2019-06-04] MEDS ORDERED: traMADol HCl 50 MG TAB PO PRN ×2 (09:08→12:15)
[2019-06-04] MEDS ORDERED: Zolpidem Tartrate 5 MG TAB PO PRN ×2 (09:08→12:13)
[2019-06-04] MEDS ORDERED: HYDROcodone/Acetaminophen 10/325 mg Tablet PO PRN (09:08)
[2019-06-04] MEDS ORDERED: Acetaminophen 325 MG TAB PO PRN ×2 (09:08→12:13)
[2019-06-04] MEDS ORDERED: PROPOFOL 200 MG/20 ML VIAL ONE (10:56)
[2019-06-04] MEDS ORDERED: Metoclopramide HCl 10 MG/2 ML VIAL ONE (10:56)
[2019-06-04] MEDS ORDERED: Ondansetron PF 4 MG/2 ML Vial ONE (10:56)
[2019-06-04] MEDS ORDERED: Lidocaine 1% PF 5 ML VIAL ONE (10:56)
[2019-06-04] MEDS ORDERED: Ropivacaine 0.5% HCl/PF (150 MG/30 ML VIAL) ONE (10:56)
[2019-06-04] MEDS ORDERED: Ropivacaine 0.2% HCl/PF (40 MG/20 ML VIAL) ONE (10:56)
[2019-06-04] MEDS ORDERED: Meperidine HCl/PF 25 MG/ML VIAL SLOW IVP PRN (11:16)
[2019-06-04] MEDS ORDERED: HYDROmorphone 2 MG/ML VIAL SLOW IVP PRN (11:16)
[2019-06-04] MEDS ORDERED: Promethazine HCl 25 MG/ML VIAL SLOW IVP PRN (11:16)
[2019-06-04] MEDS ORDERED: Ketorolac Tromethamine 30 MG/ML VIAL IVP SCH (12:00)
[2019-06-04] MEDS ORDERED: Ondansetron PF 4 MG/2 ML Vial IVP PRN (12:13)
[2019-06-04] MEDS ORDERED: Fentanyl 100 MCG/2 ML VIAL SLOW IVP PRN (12:13)
[2019-06-04] MEDS ORDERED: HYDROmorphone 0.5 MG/0.5 ML SYRINGE ONE (12:15)
--- NOTE | 2019-06-04 12:37 | RAD ---
XR Knee Rt 2 View History: Total knee arthroplasty Comparison: Radiograph 2014 Findings: Longstem constrained right total knee arthroplasty and patellar resurfacing. Expected posto perative gas and edema. Impression: Satisfactory postoperative appearance.
[2019-06-04] MEDS ORDERED: DEXTROMETHORPHAN PO PRN (12:45)
[2019-06-04] MEDS ORDERED: PROMETHAZINE PO PRN (12:45)
[2019-06-04] MEDS: Sodium Chloride 0.9% 1,000 ML IV SCH ×3 (14:24→22:33)
[2019-06-04] MEDS: Ketorolac Tromethamine 30 MG/ML VIAL IVP SCH ×2 (14:37→20:13)
[2019-06-04 15:17] VITALS: BMI 30.2
[2019-06-04] MEDS: Fentanyl 100 MCG/2 ML VIAL IV PRN (16:42)
[2019-06-04] MEDS ORDERED: Vancomycin HCl 1 GM in Premix Bag 1 BAG IVPB SCH (20:00)
[2019-06-04] MEDS: HYDROcodone/Acetaminophen 10/325 mg Tablet PO PRN (20:08)
[2019-06-04] MEDS: tiZANidine HCl 4 MG TAB PO SCH (20:10)
[2019-06-04] MEDS: Senokot S 8.6-50 MG TAB PO SCH (20:11)
[2019-06-04] MEDS: Atorvastatin Calcium 40 MG TAB PO SCH (20:13)
[2019-06-04] MEDS: Ferrous Gluconate 324 MG TAB PO SCH (20:13)
[2019-06-04] MEDS: Amitriptyline HCl 10 MG TAB PO SCH (20:13)
[2019-06-04] MEDS: Aspirin 81 mg Enteric Coated Tablet PO SCH (20:13)
[2019-06-04] MEDS: Lisinopril 20 MG TAB PO SCH (20:13)
[2019-06-04] MEDS: Trospium 20 MG TAB PO SCH (20:35)
[2019-06-05] MEDS: Ketorolac Tromethamine 30 MG/ML VIAL IVP SCH ×5 (02:23→20:10)
[2019-06-05 06:32] LABS: Hemoglobin 9.7 g/dL (12.0-16.0); Mean Corpuscular HGB CONC 33.5 g/dL (32.0-36.0); Mean Corpuscular Hemoglobin 30.4 pg (27.0-31.0); Mean Corpuscular Volume 90.7 fL (78.0-98.0); Mean Platelet Volume 8.3 fL (7.4-10.4); Platelet Count 202 thou/uL (130-400); RBC Distribution Width 11.6 % (11.5-14.5); Red Blood Cell (RBC) Count 3.19 mill/uL (4.20-5.40); White Blood Cell (WBC) Count 13.8 thou/uL (4.8-10.8)
[2019-06-05] MEDS: HYDROcodone/Acetaminophen 10/325 mg Tablet PO PRN ×3 (08:14→19:59)
[2019-06-05] MEDS: Lubiprostone 24 MCG CAP PO SCH (08:21)
[2019-06-05] MEDS: Famotidine 20 MG TAB PO SCH (08:21)
[2019-06-05] MEDS: Amlodipine 5 MG TAB PO SCH (08:21)
[2019-06-05] MEDS: Aspirin 81 mg Enteric Coated Tablet PO SCH ×2 (08:21→20:02)
[2019-06-05] MEDS: Ferrous Gluconate 324 MG TAB PO SCH ×2 (08:21→20:02)
[2019-06-05] MEDS: Multivitamin W/ Minerals 1 TAB PO SCH (08:22)
[2019-06-05] MEDS: Senokot S 8.6-50 MG TAB PO SCH ×2 (08:22→20:01)
[2019-06-05] MEDS: Trospium 20 MG TAB PO SCH ×2 (08:22→22:19)
[2019-06-05] MEDS: Sodium Chloride 0.9% 1,000 ML IV SCH ×2 (08:26→12:11)
[2019-06-05] MEDS ORDERED: Non-Formulary Item 1 EACH (Levemir Flexpen [Levemir Flexpen] 30 UNIT) SC SCH (09:00)
[2019-06-05] MEDS: Insulin Glargine 30 UNITS in Pre-Filled Syringe 1 EACH SC SCH (09:15)
[2019-06-05] MEDS: diphenhydrAMINE 25 MG CAP PO PRN ×2 (12:16→19:59)
[2019-06-05] MEDS: Amitriptyline HCl 10 MG TAB PO SCH (20:02)
[2019-06-05] MEDS: Atorvastatin Calcium 40 MG TAB PO SCH (20:02)
[2019-06-05] MEDS: tiZANidine HCl 4 MG TAB PO SCH (20:02)
[2019-06-05] MEDS: Lisinopril 20 MG TAB PO SCH (20:04)
--- NOTE | 2019-06-05 22:24 | RAD ---
XR Chest 1 View HISTORY: Fever, low oxygen saturation COMPARISON: 03/08/2019 FINDINGS: The heart size is stable. Pleural-parenchymal changes at the left lung base again seen. The re is a new patchy opacity in the right lung base. No pneumothoraces are identified.
[2019-06-05 23:11] LABS: #Basophils 0.1 thou/uL (0.0-0.2); #Eosinphils 0.1 thou/uL (0.0-0.7); #Lymphocytes 2.1 thou/uL (1.20-3.40); #Monocytes 2.1 thou/uL (0.11-0.59); #Neutrophils 11.9 thou/uL (1.40-6.50); %Basophils 0.4 % (0.0-1.0); %Eosinophils 0.7 % (0.0-10.0); %Lymphocytes 12.7 % (21.0-51.0); %Monocytes 12.8 % (0.0-10.0); %Neutrophils 73.4 % (42.0-75.0); Hemoglobin 8.8 g/dL (12.0-16.0); Mean Corpuscular HGB CONC 33.9 g/dL (32.0-36.0); Mean Corpuscular Hemoglobin 31.5 pg (27.0-31.0); Mean Corpuscular Volume 93.1 fL (78.0-98.0); Mean Platelet Volume 8.2 fL (7.4-10.4); Platelet Count 185 thou/uL (130-400); RBC Distribution Width 11.7 % (11.5-14.5); Red Blood Cell (RBC) Count 2.79 mill/uL (4.20-5.40); White Blood Cell (WBC) Count 16.2 thou/uL (4.8-10.8)
[2019-06-05 23:33] LABS: ALT (SGPT) 33 U/L (8-55); AST (SGOT) 28 U/L (5-34); Albumin 3.3 g/dL (3.4-4.8); Alkaline Phosphatase 107 U/L (40-110); Anion Gap 11 mmol/L (10-20); BUN (Urea Nitrogen) 17 mg/dL (9.8-20.1); Bilirubin, Total 0.8 mg/dL (0.2-1.2); Calc. Creatinine Clearance 51 mL/min (70-130); Calcium 8.9 mg/dL (7.8-10.44); Carbon Dioxide 22 mmol/L (23-31); Chloride 106 mmol/L (98-107); Estimated GFR-MDRD 50; Globulin 2.4 g/dL (2.4-3.5); Glucose 116 mg/dL (80-115); Potassium 3.6 mmol/L (3.5-5.1); Protein, Total 5.7 g/dL (6.0-8.3); Sodium 135 mmol/L (136-145)
--- NOTE | 2019-06-06 00:12 | CON ---
DATE OF CONSULTATION: 06/05/2019 TIME OF ASSESSMENT: 2200 hours. REASON FOR CONSULTATION: Medical management. HISTORY OF PRESENT ILLNESS: Ms. Sun is a 64-year-old woman, who is status post revision of total knee arthroplasty. The patient had surgery done today. She reports having mild discomfort in her knee since surgery, but that is now under control. ED nurse states the patient spiked a temperature earlier today at 102, and this evening she had a low-grade temperature of 99.8. The patient has been given [place] as scheduled for pain and temperature has settled. The patient denies having any complaints. She has asthma and currently on O2 by nasal cannula due to sats being in the low 90s. The patient denies having any respiratory difficulties. No shortness of breath. No chest pain. No cough. Denies feeling feverish. Denies any sweats. Denies any urinary symptoms. No nausea, vomiting. No abdominal pain. Overall, she feels well and is without any complaints. PAST MEDICAL HISTORY: 1. Asthma. 2. Diabetes. 3. Hyperlipidemia. 4. Hypertension. 5. GERD. 6. Chronic back pain. PAST SURGICAL HISTORY: 1. Septoplasty. 2. Resection of submucosa. 3. Surgery of sinus endoscopic. 4. Lumbar decompression. 5. Right total knee replacement, December 2013. 6. Right knee arthroscopy/meniscectomy, April 2013. 7. EGD, October 2013. 8. Hysterectomy. SOCIAL HISTORY: The patient denies any history of tobacco use or alcohol consumption. She lives with family and is normally fully independent. ALLERGIES: PENICILLIN. CURRENT MEDICATIONS: 1. Amitriptyline. 2. Norvasc. 3. Lipitor. 4. Combivent. 5. Famotidine. 6. Levemir. 7. Lisinopril. 8. Amitiza. 9. VESIcare. 10. Dextromethorphan. 11. Tizanidine. 12. Tramadol. PHYSICAL EXAMINATION: GENERAL: The patient appears well developed, well nourished, is in no acute distress. VITAL SIGNS: Temperature documented earlier this evening was 99.8. Heart rate 108, blood pressure 129/65, respirations 18, O2 saturation 93% on room air, blood pressure 129/65. HEENT: Normocephalic and atraumatic. Pupils are equal, round, and reactive to light. Sclerae icterus. Oropharynx is clear. NECK: Supple. LUNGS: Clear to auscultation bilaterally. CARDIAC: Regular rate and rhythm. ABDOMEN: Soft, nontender, nondistended. Normoactive bowel sounds present. No guarding or rigidity. No renal angle tenderness. EXTREMITIES: No lower extremity swelling or edema. Peripheral pulses equal and strong bilaterally. SKIN: Warm and dry. NEUROLOGIC: Alert and oriented x3. No neuro deficits on exam. LABORATORY DATA: White count 13.8, hemoglobin 9.7, hematocrit 28.9, platelets 202. IMPRESSION AND PLAN: Ms. Sun is a 64-year-old woman, who is status post revision of total right knee replacement, who is being referred to us for management of the followin. Leukocytosis with fever. The patient without any complaints concerning for infection. We will obtain a chest x-ray, urinalysis and repeat CBC. Obtain a BNP and lactic acid as well as procalcitonin. The patient currently on postoperative antibiotics with Levaquin. 2. Diabetes mellitus. We will initiate insulin sliding scale and monitor blood glucose. 3. Hypertension. Monitor blood pressure. Continue home medications. 4. Hyperlipidemia. Resume home medications. 5. Gastroesophageal reflux disease. The patient is on famotidine at home, which we will continue. 6. Asthma. Continue p.r.n. DuoNebs and resume inhalers. 7. Deep venous thrombosis prophylaxis. The patient has mechanical SCDs in place. 8. Code status full. Surrogate decision maker is her daughter, Tracee Sun. Thank you for this consultation. We will continue to follow this patient with you. Job ID: [id number]
[2019-06-06] MEDS: Ketorolac Tromethamine 30 MG/ML VIAL IVP SCH ×2 (02:38→08:15)
[2019-06-06 05:56] LABS: Hemoglobin 8.8 g/dL (12.0-16.0); Mean Corpuscular HGB CONC 33.5 g/dL (32.0-36.0); Mean Corpuscular Hemoglobin 31.1 pg (27.0-31.0); Mean Corpuscular Volume 92.8 fL (78.0-98.0); Mean Platelet Volume 8.6 fL (7.4-10.4); Platelet Count 181 thou/uL (130-400); RBC Distribution Width 11.7 % (11.5-14.5); Red Blood Cell (RBC) Count 2.82 mill/uL (4.20-5.40); White Blood Cell (WBC) Count 16.2 thou/uL (4.8-10.8)
[2019-06-06] MEDS: Sodium Chloride 0.9% 1,000 ML IV SCH ×2 (05:59→12:40)
[2019-06-06] MEDS: HYDROcodone/Acetaminophen 10/325 mg Tablet PO PRN ×2 (06:12→17:11)
[2019-06-06 07:11] LABS: Bilirubin Negative (Negative); Blood, Urine Negative (Negative); Clarity Clear (Clear); Glucose, Urine (Dipstick) Normal (Negative); Leukocyte 250 Leu/uL (Negative); Nitrite Negative (Negative); Protein, Urine (Dipstick) 30 mg/dL (Neg-Trace); Squamous Epithelial 0-3 HPF (0-3); Urobilinogen Normal mg/dL (Less than 2)
[2019-06-06 07:25] LABS: Bacteria/HPF 1+ HPF (None Seen)
[2019-06-06 07:26] LABS: Urine Culture Reflex Yes Yes
[2019-06-06] MEDS: Amlodipine 5 MG TAB PO SCH (08:44)
[2019-06-06] MEDS: Senokot S 8.6-50 MG TAB PO SCH ×2 (08:44→22:12)
[2019-06-06] MEDS: Ferrous Gluconate 324 MG TAB PO SCH ×2 (08:44→22:14)
[2019-06-06] MEDS: Famotidine 20 MG TAB PO SCH (08:46)
[2019-06-06] MEDS: Lubiprostone 24 MCG CAP PO SCH (08:46)
[2019-06-06] MEDS: Multivitamin W/ Minerals 1 TAB PO SCH (08:46)
[2019-06-06] MEDS: Aspirin 81 mg Enteric Coated Tablet PO SCH ×2 (08:46→22:13)
[2019-06-06] MEDS: Trospium 20 MG TAB PO SCH ×2 (08:47→22:12)
[2019-06-06] MEDS: Insulin Glargine 30 UNITS in Pre-Filled Syringe 1 EACH SC SCH (08:49)
[2019-06-06] MEDS: traMADol HCl 50 MG TAB PO PRN ×2 (08:52→22:14)
[2019-06-06 08:59] LABS: #Eosinphils 0.1 thou/uL (0.0-0.7); #Lymphocytes 1.4 thou/uL (1.20-3.40); #Monocytes 2.3 thou/uL (0.11-0.59); #Neutrophils 13.3 thou/uL (1.40-6.50); %Basophils 0.2 % (0.0-1.0); %Eosinophils 0.8 % (0.0-10.0); %Lymphocytes 8.1 % (21.0-51.0); %Monocytes 13.6 % (0.0-10.0); %Neutrophils 77.3 % (42.0-75.0); Hemoglobin 8.8 g/dL (12.0-16.0); Mean Corpuscular HGB CONC 32.8 g/dL (32.0-36.0); Mean Corpuscular Hemoglobin 30.6 pg (27.0-31.0); Mean Corpuscular Volume 93.4 fL (78.0-98.0); Mean Platelet Volume 8.4 fL (7.4-10.4); Platelet Count 184 thou/uL (130-400); RBC Distribution Width 11.6 % (11.5-14.5); Red Blood Cell (RBC) Count 2.87 mill/uL (4.20-5.40); White Blood Cell (WBC) Count 17.2 thou/uL (4.8-10.8)
[2019-06-06] MEDS: diphenhydrAMINE 25 MG CAP PO PRN (09:13)
[2019-06-06 09:19] LABS: Anion Gap 10 mmol/L (10-20); BUN (Urea Nitrogen) 17 mg/dL (9.8-20.1); Calc. Creatinine Clearance 59 mL/min (70-130); Calcium 9.5 mg/dL (7.8-10.44); Carbon Dioxide 24 mmol/L (23-31); Chloride 106 mmol/L (98-107); Estimated GFR-MDRD 59; Glucose 113 mg/dL (80-115); Potassium 3.4 mmol/L (3.5-5.1); Sodium 137 mmol/L (136-145)
[2019-06-06] MEDS: guaiFENesin/Codeine Phosphate 200 mg/20 mg 10 ml UD Cup PO PRN (14:24)
--- NOTE | 2019-06-06 14:45 | PDOC.HOSPP ---
- Subjective Encounter Date: 06/06/19 Encounter Time: 14:43 Subjective: Ms. Sun was seen today in follow-up post right TKR. She notes a cough which is productive of yellow phlem. She denies chest pain or shortness of breath. She notes some constipation. - Objective Vital Signs & Weight: Vital Signs (12 hours) Temp Pulse Resp BP Pulse Ox 06/06/19 12:31 75 16 91 L 06/06/19 11:25 98.2 F 97 18 109/53 L 94 L 06/06/19 07:59 95 06/06/19 07:06 98 F 108 H 16 120/64 97 06/06/19 06:27 79 16 89 L 06/06/19 03:31 98 F 97 16 115/54 L 95 06/06/19 02:49 77 16 92 L Weight Weight 165 lb I&O: 06/05/19 06/06/19 06/07/19 06:59 06:59 06:59 Intake Total 3370 2180 Output Total 1050 Balance 2320 2180 Result Diagrams: 06/06/19 08:28 06/06/19 08:28 Hospitalist ROS - Medication Medications: Active Medications Generic Name Dose Route Start Last Admin Trade Name Freq PRN Reason Stop Dose Admin Hydrocodone Bitart/Acetaminophen 2 tab 06/04/19 09:08 06/06/19 06:12 [place] 10/325 PO 2 tab Q4H PRN Administration PAIN (4-6) Albuterol/Ipratropium 3 ml 06/06/19 01:00 06/06/19 12:31 Duoneb NEB 3 ml [id number] SHEN Administration Amitriptyline HCl 10 mg 06/04/19 21:00 06/05/19 20:02 Elavil PO 10 mg HS SHEN Administration Amlodipine Besylate 5 mg 06/05/19 09:00 06/06/19 08:44 Norvasc PO 5 mg DAILY SHEN Administration Aspirin 81 mg 06/04/19 21:00 06/06/19 08:46 Ecotrin PO 81 mg BID SHEN Administration Atorvastatin Calcium 40 mg 06/04/19 21:00 06/05/19 20:02 Lipitor PO 40 mg HS SHEN Administration Diphenhydramine HCl 25 mg 06/04/19 12:13 06/06/19 09:13 Benadryl PO 25 mg Q6H PRN Administration Itching Famotidine 20 mg 06/05/19 09:00 06/06/19 08:46 Pepcid PO 20 mg DAILY SHEN Administration Fentanyl 50 mcg 06/04/19 09:09 06/04/19 16:42 Sublimaze IV 50 mcg Q1H PRN Administration BREAKTHROUGH PAIN Ferrous Gluconate 324 mg 06/04/19 21:00 06/06/19 08:44 Fergon PO 324 mg BID SHEN Administration Guaifenesin/Codeine Phosphate 10 ml 06/06/19 13:01 06/06/19 14:24 Robitussin Ac PO 10 ml Q6H PRN Administration Cough Sodium Chloride 1,000 mls @ 100 mls/hr 06/04/19 12:15 06/06/19 12:40 Normal Saline 0.9% IV Not Given .Q10H SHEN Insulin Glargine 30 units/ 0.3 mls @ 0 mls/hr 06/05/19 09:00 06/06/19 08:49 Miscellaneous Medication SC 0.3 mls QAM SHEN Administration Levofloxacin 500 mg/ Device 100 mls @ 100 mls/hr 06/06/19 08:00 06/06/19 08: 42 IVPB 100 mls Q24HR SHEN Administration Iron/Minerals/Multivitamins 1 tab 06/05/19 09:00 06/06/19 08:46 Theragran M PO 1 tab DAILY SHEN Administration Lisinopril 20 mg 06/04/19 21:00 06/05/19 20:04 Zestril PO 20 mg HS SHEN Administration Lubiprostone 24 mcg 06/05/19 09:00 06/06/19 08:46 Amitiza PO 24 mcg DAILY SHEN Administration Senna/Docusate Sodium 2 tab 06/04/19 21:00 06/06/19 08:44 Senokot S PO 2 tab BID SHEN Administration Sodium Chloride 10 ml 06/04/19 21:00 06/06/19 08:49 Flush - Normal Saline IVF 10 ml Q12HR SHEN Administration Tizanidine HCl 2 mg 06/04/19 21:00 06/05/19 20:02 Zanaflex PO 2 mg HS SHEN Administration Tramadol HCl 100 mg 06/04/19 09:08 06/06/19 08:52 Ultram PO 100 mg Q6H PRN Administration Moderate Pain 4-6 Trospium 20 mg 06/04/19 21:00 06/06/19 08:47 Trospium PO 20 mg BID SHEN Administration - Exam Eye: PERRL Neck: supple Heart: RRR, no murmur, no gallops, no rubs, normal peripheral pulses Respiratory: CTAB, no wheezes, no rales, no ronchi, normal chest expansion, no tachypnea Gastrointestinal: soft, non-tender, non-distended, normal bowel sounds, no palpable masses, no hepatomegaly Extremities: no cyanosis, no edema Hosp A/P (1) Pneumonia Code(s): J18.9 - PNEUMONIA, UNSPECIFIED ORGANISM Status: Acute (2) Status post total knee replacement, right Code(s): Z96.651 - PRESENCE OF RIGHT ARTIFICIAL KNEE JOINT Status: Acute (3) Asthma Code(s): J45.909 - UNSPECIFIED ASTHMA, UNCOMPLICATED Status: Chronic (4) Osteoarthritis Code(s): M19.90 - UNSPECIFIED OSTEOARTHRITIS, UNSPECIFIED SITE Status: Chronic - Plan * Pneumonia- patient was found to have an infiltrate on the right Will continue Levaquin * Constipation - will add a stool softner, and MOM * Asthma- stable * Continue PT/OT as per Orthopedics
[2019-06-06] MEDS: Docusate 100 MG CAP PO SCH (22:13)
[2019-06-06] MEDS: Lisinopril 20 MG TAB PO SCH (22:13)
[2019-06-06] MEDS: Amitriptyline HCl 10 MG TAB PO SCH (22:13)
[2019-06-06] MEDS: tiZANidine HCl 4 MG TAB PO SCH (22:14)
[2019-06-06] MEDS: Atorvastatin Calcium 40 MG TAB PO SCH (22:14)
[2019-06-07] MEDS: Sodium Chloride 0.9% 1,000 ML IV SCH ×3 (00:31→21:15)
[2019-06-07 05:14] LABS: Hemoglobin 8.2 g/dL (12.0-16.0); Mean Corpuscular HGB CONC 34.2 g/dL (32.0-36.0); Mean Corpuscular Hemoglobin 31.4 pg (27.0-31.0); Mean Corpuscular Volume 91.8 fL (78.0-98.0); Mean Platelet Volume 8.7 fL (7.4-10.4); Platelet Count 188 thou/uL (130-400); RBC Distribution Width 11.6 % (11.5-14.5); White Blood Cell (WBC) Count 15.6 thou/uL (4.8-10.8)
[2019-06-07] MEDS: guaiFENesin/Codeine Phosphate 200 mg/20 mg 10 ml UD Cup PO PRN (08:16)
[2019-06-07] MEDS: HYDROcodone/Acetaminophen 10/325 mg Tablet PO PRN ×3 (08:20→21:55)
[2019-06-07] MEDS: Aspirin 81 mg Enteric Coated Tablet PO SCH ×2 (08:26→21:45)
[2019-06-07] MEDS: Lubiprostone 24 MCG CAP PO SCH (08:26)
[2019-06-07] MEDS: Famotidine 20 MG TAB PO SCH (08:27)
[2019-06-07] MEDS: Docusate 100 MG CAP PO SCH ×2 (08:27→21:48)
[2019-06-07] MEDS: Amlodipine 5 MG TAB PO SCH (08:27)
[2019-06-07] MEDS: Ferrous Gluconate 324 MG TAB PO SCH ×2 (08:27→21:48)
[2019-06-07] MEDS: Multivitamin W/ Minerals 1 TAB PO SCH (08:27)
[2019-06-07] MEDS: Senokot S 8.6-50 MG TAB PO SCH ×2 (08:27→21:47)
[2019-06-07] MEDS: traMADol HCl 50 MG TAB PO PRN (10:11)
[2019-06-07] MEDS: Insulin Glargine 30 UNITS in Pre-Filled Syringe 1 EACH SC SCH (10:14)
[2019-06-07] MEDS: Fentanyl 100 MCG/2 ML VIAL IV PRN (11:22)
--- NOTE | 2019-06-07 11:25 | OP ---
DATE OF PROCEDURE: 06/04/2019 PREOPERATIVE DIAGNOSIS: Failed right total knee replacement. POSTOPERATIVE DIAGNOSIS: Failed right total knee replacement. PROCEDURE PERFORMED: Right revision total knee arthroplasty. SUPERVISOR [employer] PROCESSING: Segun Garcia MD BLOOD LOSS: Minimal. SPECIMEN: None. DRAINS: None. COMPLICATIONS: None. TOURNIQUET TIME: 88 minutes. DESCRIPTION OF PROCEDURE: The patient was taken to the operating room, where general anesthesia induced. Right leg was prepped and draped in sterile fashion. After exsanguination, tourniquet inflated to 300 mmHg. I opened up the old scar in a medial parapatellar approach. I excised a great deal of the scar tissue from the suprapatellar pouch, recreated the gutters, cleaned the lateral aspect of the joint adjacent to the patella. Patella was everted. The polyethylene was removed to clean the posterior part of the joint. After complete synovectomy, I then removed the femur and the tibia carefully, with very little bone loss. This was quite a deformed knee. out of this probably at about 12 degrees of hyperextension. This has caused a significant defect in the anterior aspect of the femur. I used intramedullary guide, made a tibial cut, which was quite conservative, placed the tibial trial cutting guide, placed the femoral trial cutting guide after reaming up to a size 14 mm, ended up using a #3 tibia with a 50-mm cemented stem, #3 femur from Hyun with a 14 mm x 100 uncemented stem, a 10 mm buildup laterally and a 5 mm buildup medially. After trials were performed, stability and range of motion were confirmed. Trials removed. Irrigation performed. Permanent implants were cemented into place. Retinaculum was repaired with #2 Vicryl, #2 Quill, subcu closed with 0 Quill, skin was closed with Prolene suture, and a sterile dressing was applied. There were no complications. Job ID: [id number]
[2019-06-07] MEDS: Trospium 20 MG TAB PO SCH ×2 (11:32→21:46)
[2019-06-07] MEDS: Ondansetron PF 4 MG/2 ML Vial IVP PRN (14:11)
--- NOTE | 2019-06-07 15:40 | PDOC.HOSPP ---
- Subjective Encounter Date: 06/07/19 Encounter Time: 15:38 Subjective: Ms. Sun was seen today in follow-up post Right TKR. She continues to have a productive cough. She also notes some swelling in the knee. - Objective Vital Signs & Weight: Vital Signs (12 hours) Temp Pulse Resp BP BP Pulse Ox 06/07/19 13:40 95 18 91 L 06/07/19 11:34 98 F 92 18 96/54 L 92 L 06/07/19 08:27 100 06/07/19 08:00 92 L 06/07/19 07:37 100 18 90 L 06/07/19 07:19 98.1 F 98 16 150/72 H 91 L 06/07/19 04:10 98 F 102 H 16 138/71 90 L Weight Weight 165 lb I&O: 06/06/19 06/07/19 06/08/19 06:59 06:59 06:59 Intake Total 2180 1590 Balance 2180 1590 Result Diagrams: 06/07/19 05:00 06/06/19 08:28 Additional Labs: Accuchecks 06/04/19 09:22 POC Glucose 111 H Hospitalist ROS - Medication Medications: Active Medications Generic Name Dose Route Start Last Admin Trade Name Freq PRN Reason Stop Dose Admin Hydrocodone Bitart/Acetaminophen 2 tab 06/04/19 09:08 06/07/19 08:20 [place] 10/325 PO 2 tab Q4H PRN Administration PAIN (4-6) Albuterol/Ipratropium 3 ml 06/06/19 01:00 06/07/19 13:40 Duoneb NEB 3 ml [id number] SHEN Administration Amitriptyline HCl 10 mg 06/04/19 21:00 06/06/19 22:13 Elavil PO 10 mg HS SHEN Administration Amlodipine Besylate 5 mg 06/05/19 09:00 06/07/19 08:27 Norvasc PO 5 mg DAILY SHEN Administration Aspirin 81 mg 06/04/19 21:00 06/07/19 08:26 Ecotrin PO 81 mg BID SHEN Administration Atorvastatin Calcium 40 mg 06/04/19 21:00 06/06/19 22:14 Lipitor PO 40 mg HS SHEN Administration Diphenhydramine HCl 25 mg 06/04/19 12:13 06/06/19 09:13 Benadryl PO 25 mg Q6H PRN Administration Itching Docusate Sodium 100 mg 06/06/19 21:00 06/07/19 08:27 Colace PO 100 mg BID SHEN Administration Famotidine 20 mg 06/05/19 09:00 06/07/19 08:27 Pepcid PO 20 mg DAILY SHEN Administration Fentanyl 50 mcg 06/04/19 09:09 06/07/19 11:22 Sublimaze IV 50 mcg Q1H PRN Administration BREAKTHROUGH PAIN Ferrous Gluconate 324 mg 06/04/19 21:00 06/07/19 08:27 Fergon PO 324 mg BID SHEN Administration Guaifenesin/Codeine Phosphate 10 ml 06/06/19 13:01 06/07/19 08:16 Robitussin Ac PO 10 ml Q6H PRN Administration Cough Sodium Chloride 1,000 mls @ 100 mls/hr 06/04/19 12:15 06/07/19 11:33 Normal Saline 0.9% IV Not Given .Q10H SHEN Insulin Glargine 30 units/ 0.3 mls @ 0 mls/hr 06/05/19 09:00 06/07/19 10:14 Miscellaneous Medication SC 0.3 mls QAM SHEN Administration Levofloxacin 500 mg/ Device 100 mls @ 100 mls/hr 06/06/19 08:00 06/07/19 08: 15 IVPB 100 mls Q24HR SHEN Administration Iron/Minerals/Multivitamins 1 tab 06/05/19 09:00 06/07/19 08:27 Theragran M PO 1 tab DAILY SHEN Administration Lisinopril 20 mg 06/04/19 21:00 06/06/19 22:13 Zestril PO 20 mg HS SHEN Administration Lubiprostone 24 mcg 06/05/19 09:00 06/07/19 08:26 Amitiza PO 24 mcg DAILY SHEN Administration Ondansetron HCl 4 mg 06/04/19 09:08 06/07/19 14:11 Zofran IVP 4 mg Q6H PRN Administration Nausea/Vomiting Senna/Docusate Sodium 2 tab 06/04/19 21:00 06/07/19 08:27 Senokot S PO 2 tab BID SHEN Administration Sodium Chloride 10 ml 06/04/19 21:00 06/07/19 14:13 Flush - Normal Saline IVF 10 ml Q12HR SHEN Administration Tizanidine HCl 2 mg 06/04/19 21:00 06/06/19 22:14 Zanaflex PO 2 mg HS SHEN Administration Tramadol HCl 100 mg 06/04/19 09:08 06/07/19 10:11 Ultram PO 100 mg Q6H PRN Administration Moderate Pain 4-6 Trospium 20 mg 06/04/19 21:00 06/07/19 11:32 Trospium PO 20 mg BID SHEN Administration - Exam Eye: PERRL Heart: RRR, no murmur, no gallops, no rubs, normal peripheral pulses Respiratory: CTAB (+ rales at the left base), no wheezes, no ronchi, normal chest expansion Gastrointestinal: soft, non-tender, non-distended, normal bowel sounds, no palpable masses, no hepatomegaly Extremities: no cyanosis, no clubbing, no edema Hosp A/P (1) Pneumonia Code(s): J18.9 - PNEUMONIA, UNSPECIFIED ORGANISM Status: Acute (2) Status post total knee replacement, right Code(s): Z96.651 - PRESENCE OF RIGHT ARTIFICIAL KNEE JOINT Status: Acute (3) Asthma Code(s): J45.909 - UNSPECIFIED ASTHMA, UNCOMPLICATED Status: Chronic (4) Osteoarthritis Code(s): M19.90 - UNSPECIFIED OSTEOARTHRITIS, UNSPECIFIED SITE Status: Chronic - Plan * Pneumonia- she continues with the cough, and her WBC count is a bit elevated- will add Flagyl to her regimen * Incentive Spirometry * Constipation - will add a stool softner, and MOM * Asthma- stable * Continue PT/OT as per Orthopedics
[2019-06-07] MEDS: tiZANidine HCl 4 MG TAB PO SCH (21:47)
[2019-06-07] MEDS: Amitriptyline HCl 10 MG TAB PO SCH (21:48)
[2019-06-07] MEDS: metroNIDAZOLE 500 MG TAB PO SCH (21:48)
[2019-06-07] MEDS: Atorvastatin Calcium 40 MG TAB PO SCH (21:48)
[2019-06-07] MEDS: Lisinopril 20 MG TAB PO SCH (21:48)
[2019-06-07] MEDS: diphenhydrAMINE 25 MG CAP PO PRN (21:54)
[2019-06-08 05:48] LABS: Mean Corpuscular HGB CONC 33.3 g/dL (32.0-36.0); Mean Corpuscular Hemoglobin 31.4 pg (27.0-31.0); Mean Corpuscular Volume 94.2 fL (78.0-98.0); Mean Platelet Volume 8.4 fL (7.4-10.4); Platelet Count 227 thou/uL (130-400); RBC Distribution Width 11.7 % (11.5-14.5); Red Blood Cell (RBC) Count 2.56 mill/uL (4.20-5.40); White Blood Cell (WBC) Count 15.2 thou/uL (4.8-10.8)
[2019-06-08] MEDS: Sodium Chloride 0.9% 1,000 ML IV SCH ×2 (06:34→16:23)
[2019-06-08] MEDS: Insulin Glargine 30 UNITS in Pre-Filled Syringe 1 EACH SC SCH (08:44)
[2019-06-08] MEDS: Amlodipine 5 MG TAB PO SCH (08:45)
[2019-06-08] MEDS: Multivitamin W/ Minerals 1 TAB PO SCH (08:45)
[2019-06-08] MEDS: Docusate 100 MG CAP PO SCH ×2 (08:45→19:45)
[2019-06-08] MEDS: Senokot S 8.6-50 MG TAB PO SCH ×2 (08:45→19:42)
[2019-06-08] MEDS: Ferrous Gluconate 324 MG TAB PO SCH ×2 (08:45→19:46)
[2019-06-08] MEDS: Aspirin 81 mg Enteric Coated Tablet PO SCH ×2 (08:46→19:47)
[2019-06-08] MEDS: Famotidine 20 MG TAB PO SCH (08:46)
[2019-06-08] MEDS: Lubiprostone 24 MCG CAP PO SCH (08:46)
[2019-06-08] MEDS: metroNIDAZOLE 500 MG TAB PO SCH ×3 (08:46→19:45)
[2019-06-08] MEDS: guaiFENesin/Codeine Phosphate 200 mg/20 mg 10 ml UD Cup PO PRN (08:49)
[2019-06-08] MEDS: HYDROcodone/Acetaminophen 10/325 mg Tablet PO PRN ×4 (08:49→19:40)
[2019-06-08] MEDS: Trospium 20 MG TAB PO SCH ×2 (08:59→19:54)
[2019-06-08] MEDS: Ondansetron PF 4 MG/2 ML Vial IVP PRN (09:13)
--- NOTE | 2019-06-08 09:40 | PRG ---
DATE OF SERVICE: 06/07/2019 SUBJECTIVE: Tomasa is a 64-year-old female, who is postop day 3 from a right revision total knee arthroplasty. She is doing relatively well. She has been able to ambulate up to 70 feet, but refused therapy yesterday, June 06. She is able to sit and transfer from bed to chair; however, she refused therapy. OBJECTIVE: VITAL SIGNS: Temperature 98, pulse 98, respiratory rate 16 and unlabored, O2 saturation 91% on room air, and blood pressure is 150/72. GENERAL: She is alert, oriented, responsive, appropriate with examiner. SKIN: Incision is clean. No strikethrough. No erythema. EXTREMITIES: She is neurovascularly intact in the right lower extremity. LABORATORY DATA: Hemoglobin and hematocrit of 8.2 and 23.9. IMPRESSION: 1. Postoperative day 3 revision right total knee arthroplasty. 2. Asymptomatic anemia. PLAN: 1. Continue current care. Continue to watch hemoglobin and hematocrit, but I believe she is at her claire. Recheck tomorrow. 2. Placement for continued skilled versus inpatient rehabilitation. Job ID: [id number]
[2019-06-08] MEDS: traMADol HCl 50 MG TAB PO PRN (10:49)
[2019-06-08] MEDS: Calcium Carbonate 500 MG ChewTAB PO PRN (13:28)
[2019-06-08] MEDS: Milk Of Magnesia 30 ML UDCUP PO PRN (13:29)
--- NOTE | 2019-06-08 14:36 | PDOC.HOSPP ---
- Subjective Encounter Date: 06/08/19 Encounter Time: 14:34 Subjective: Ms. Sun was seen today in follow-up of elevated WBC count. She is noting increased pain in the right knee. She has not felt like getting up with PT. She says the pain is bringing her to tears. - Objective Vital Signs & Weight: Vital Signs (12 hours) Temp Pulse Resp BP BP Pulse Ox 06/08/19 12:43 102 H 20 92 L 06/08/19 11:16 99.2 F 101 H 14 155/70 H 97 06/08/19 08:45 94 06/08/19 07:09 98.1 F 94 14 124/62 96 06/08/19 06:44 89 L 06/08/19 06:41 90 16 89 L 06/08/19 04:00 98.3 F 80 16 100/55 L 93 L Weight Weight 165 lb I&O: 06/07/19 06/08/19 06/09/19 06:59 06:59 06:59 Intake Total 1590 1460 Balance 1590 1460 Result Diagrams: 06/08/19 04:55 06/06/19 08:28 Hospitalist ROS - Medication Medications: Active Medications Generic Name Dose Route Start Last Admin Trade Name Freq PRN Reason Stop Dose Admin Hydrocodone Bitart/Acetaminophen 2 tab 06/04/19 09:08 06/08/19 12:19 [place] 10/325 PO 2 tab Q4H PRN Administration PAIN (4-6) Albuterol/Ipratropium 3 ml 06/06/19 01:00 06/08/19 12:43 Duoneb NEB 3 ml [id number] SHEN Administration Amitriptyline HCl 10 mg 06/04/19 21:00 06/07/19 21:48 Elavil PO 10 mg HS SHEN Administration Amlodipine Besylate 5 mg 06/05/19 09:00 06/08/19 08:45 Norvasc PO 5 mg DAILY SHEN Administration Aspirin 81 mg 06/04/19 21:00 06/08/19 08:46 Ecotrin PO 81 mg BID SHEN Administration Atorvastatin Calcium 40 mg 06/04/19 21:00 06/07/19 21:48 Lipitor PO 40 mg HS SHEN Administration Calcium Carbonate 1,000 mg 06/08/19 12:57 06/08/19 13:28 Tums PO 1,000 mg Q4H PRN Administration Heartburn or Indigestion Diphenhydramine HCl 25 mg 06/04/19 12:13 06/07/19 21:54 Benadryl PO 25 mg Q6H PRN Administration Itching Docusate Sodium 100 mg 06/06/19 21:00 06/08/19 08:45 Colace PO 100 mg BID SHEN Administration Famotidine 20 mg 06/05/19 09:00 06/08/19 08:46 Pepcid PO 20 mg DAILY SHEN Administration Fentanyl 50 mcg 06/04/19 09:09 06/07/19 11:22 Sublimaze IV 50 mcg Q1H PRN Administration BREAKTHROUGH PAIN Ferrous Gluconate 324 mg 06/04/19 21:00 06/08/19 08:45 Fergon PO 324 mg BID SHEN Administration Guaifenesin/Codeine Phosphate 10 ml 06/06/19 13:01 06/08/19 08:49 Robitussin Ac PO 10 ml Q6H PRN Administration Cough Sodium Chloride 1,000 mls @ 100 mls/hr 06/04/19 12:15 06/08/19 06:34 Normal Saline 0.9% IV Not Given .Q10H [facility] Insulin Glargine 30 units/ 0.3 mls @ 0 mls/hr 06/05/19 09:00 06/08/19 08:44 Miscellaneous Medication SC 0.3 mls QAM SHEN Administration Iron/Minerals/Multivitamins 1 tab 06/05/19 09:00 06/08/19 08:45 Theragran M PO 1 tab DAILY SHEN Administration Lisinopril 20 mg 06/04/19 21:00 06/07/19 21:48 Zestril PO 20 mg HS SHEN Administration Lubiprostone 24 mcg 06/05/19 09:00 06/08/19 08:46 Amitiza PO 24 mcg DAILY SHEN Administration Magnesium Hydroxide 30 ml 06/06/19 14:43 06/08/19 13:29 Milk Of Magnesium PO 30 ml DAILYPRN PRN Administration Constipation Metronidazole 500 mg 06/07/19 21:00 06/08/19 08:46 Flagyl PO 500 mg TID SHEN Administration Ondansetron HCl 4 mg 06/04/19 09:08 06/08/19 09:13 Zofran IVP 4 mg Q6H PRN Administration Nausea/Vomiting Senna/Docusate Sodium 2 tab 06/04/19 21:00 06/08/19 08:45 Senokot S PO 2 tab BID SHEN Administration Sodium Chloride 10 ml 06/04/19 21:00 06/08/19 08:46 Flush - Normal Saline IVF 10 ml Q12HR SHEN Administration Tizanidine HCl 2 mg 06/04/19 21:00 06/07/19 21:47 Zanaflex PO 2 mg HS SHEN Administration Tramadol HCl 100 mg 06/04/19 09:08 06/08/19 10:49 Ultram PO 100 mg Q6H PRN Administration Moderate Pain 4-6 Trospium 20 mg 06/04/19 21:00 06/08/19 08:59 Trospium PO Not Given BID SHEN - Exam Eye: PERRL Heart: RRR, no murmur, no gallops, no rubs, normal peripheral pulses Respiratory: CTAB, no wheezes, no rales, no ronchi, normal chest expansion Gastrointestinal: soft, non-tender, non-distended, normal bowel sounds Extremities: no cyanosis (+ swelling in the right knee, no drainage) Hosp A/P (1) Pneumonia Code(s): J18.9 - PNEUMONIA, UNSPECIFIED ORGANISM Status: Acute (2) Status post total knee replacement, right Code(s): Z96.651 - PRESENCE OF RIGHT ARTIFICIAL KNEE JOINT Status: Acute (3) Asthma Code(s): J45.909 - UNSPECIFIED ASTHMA, UNCOMPLICATED Status: Chronic (4) Osteoarthritis Code(s): M19.90 - UNSPECIFIED OSTEOARTHRITIS, UNSPECIFIED SITE Status: Chronic - Plan * Pneumonia- she continues with the cough, and her WBC count is a bit elevated- continue Levaquin and Flagyl * The Orthopedic team is aware of her knee- and will re-evaluate * Incentive Spirometry- I have asked her to increase this to every hour while awake * Asthma- stable * Symptom management * Continue PT/OT as per Orthopedics
--- NOTE | 2019-06-08 16:17 | RAD ---
RIGHT KNEE TWO VIEWS: 06/08/19 HISTORY: Postop pain. Decline of mobility. A long stem total knee arthroplasty has been performed. There is still air within the joint space and soft tissues, somewhat decreased as compared to the previous exam. Some joint fluid is noted. I do n ot see any signs of fracture. The bones are demineralized. IMPRESSION: Satisfactory position of prosthesis. No fracture. Persistent air seen in the soft tissues and fluid i n the joint spaces as well as air. POS: TPC
[2019-06-08] MEDS: diphenhydrAMINE 25 MG CAP PO PRN (19:40)
[2019-06-08] MEDS: tiZANidine HCl 4 MG TAB PO SCH (19:43)
[2019-06-08] MEDS: Atorvastatin Calcium 40 MG TAB PO SCH (19:45)
[2019-06-08] MEDS: Amitriptyline HCl 10 MG TAB PO SCH (19:47)
[2019-06-08] MEDS: Lisinopril 20 MG TAB PO SCH (19:49)
[2019-06-09] MEDS: traMADol HCl 50 MG TAB PO PRN (01:01)
[2019-06-09] MEDS: diphenhydrAMINE 25 MG CAP PO PRN ×3 (01:01→22:34)
[2019-06-09] MEDS: Sodium Chloride 0.9% 1,000 ML IV SCH ×3 (02:14→21:24)
[2019-06-09] MEDS: HYDROcodone/Acetaminophen 10/325 mg Tablet PO PRN ×4 (05:40→20:21)
[2019-06-09] MEDS: Amlodipine 5 MG TAB PO SCH (09:12)
[2019-06-09] MEDS: Lubiprostone 24 MCG CAP PO SCH (09:15)
[2019-06-09] MEDS: Senokot S 8.6-50 MG TAB PO SCH ×2 (09:16→20:20)
[2019-06-09] MEDS: Famotidine 20 MG TAB PO SCH (09:16)
[2019-06-09] MEDS: Multivitamin W/ Minerals 1 TAB PO SCH (09:16)
[2019-06-09] MEDS: Docusate 100 MG CAP PO SCH ×2 (09:16→20:20)
[2019-06-09] MEDS: Insulin Glargine 30 UNITS in Pre-Filled Syringe 1 EACH SC SCH (09:17)
[2019-06-09] MEDS: metroNIDAZOLE 500 MG TAB PO SCH ×3 (09:17→20:23)
[2019-06-09] MEDS: Ferrous Gluconate 324 MG TAB PO SCH ×2 (09:17→20:21)
[2019-06-09] MEDS: Trospium 20 MG TAB PO SCH ×2 (09:17→20:24)
[2019-06-09] MEDS: Aspirin 81 mg Enteric Coated Tablet PO SCH ×2 (09:17→20:21)
[2019-06-09] MEDS: Calcium Carbonate 500 MG ChewTAB PO PRN (09:20)
[2019-06-09 09:36] LABS: Hemoglobin 8.3 g/dL (12.0-16.0); Mean Corpuscular HGB CONC 35.2 g/dL (32.0-36.0); Mean Corpuscular Hemoglobin 32.4 pg (27.0-31.0); Mean Corpuscular Volume 91.9 fL (78.0-98.0); Mean Platelet Volume 7.8 fL (7.4-10.4); Platelet Count 251 thou/uL (130-400); RBC Distribution Width 11.8 % (11.5-14.5); Red Blood Cell (RBC) Count 2.57 mill/uL (4.20-5.40); White Blood Cell (WBC) Count 11.3 thou/uL (4.8-10.8)
[2019-06-09 09:51] LABS: Anion Gap 14 mmol/L (10-20); BUN (Urea Nitrogen) 17 mg/dL (9.8-20.1); Calc. Creatinine Clearance 73 mL/min (70-130); Calcium 9.6 mg/dL (7.8-10.44); Carbon Dioxide 22 mmol/L (23-31); Chloride 105 mmol/L (98-107); Estimated GFR-MDRD 75; Glucose 84 mg/dL (80-115); Sodium 137 mmol/L (136-145)
[2019-06-09 09:56] LABS: Band 11 % (5-11); Eosinophils 1 % (0-10); Lymphocytes 12 % (21-51); MDiff Complete? YES; Metamyelocyte 1 % (0-0); Monocytes 19 % (0-10); Neutrophil 55 % (42-75); Platelet Morphology Comment Appears Adequate; Polychromasia SLIGHT = 2-3 cells (100X) (0-2/hpf)
[2019-06-09] MEDS ORDERED: Fentanyl 100 MCG/2 ML VIAL SLOW IVP SCH (10:30)
[2019-06-09] MEDS: Ondansetron PF 4 MG/2 ML Vial IVP PRN ×2 (10:57→20:30)
[2019-06-09] MEDS: traMADol HCl 50 MG TAB PO SCH ×3 (12:00→22:30)
[2019-06-09] MEDS: Ketorolac Tromethamine 30 MG/ML VIAL IVP SCH ×3 (12:02→22:31)
--- NOTE | 2019-06-09 16:59 | PDOC.HOSPP ---
- Subjective Encounter Date: 06/09/19 Encounter Time: 16:57 Subjective: Ms. Sun was seen today in follow-up of pneumonia and post TKR. She says she is beginning to feel better. She walked with PT. She still has the cough, and has trouble bringing up the phlem. - Objective Vital Signs & Weight: Vital Signs (12 hours) Temp Pulse Resp BP Pulse Ox 06/09/19 12:28 88 16 98 06/09/19 12:00 98.5 F 99 16 139/80 97 06/09/19 09:12 91 06/09/19 07:56 98.3 F 91 18 106/57 L 94 L 06/09/19 06:33 94 L 06/09/19 06:32 87 16 94 L Weight Weight 165 lb I&O: 06/08/19 06/09/19 06/10/19 06:59 06:59 06:59 Intake Total 1460 1230 480 Balance 1460 1230 480 Result Diagrams: 06/09/19 09:08 06/09/19 09:07 Additional Labs: Accuchecks 06/09/19 06/09/19 11:04 07:52 POC Glucose 81 94 Hospitalist ROS - Medication Medications: Active Medications Generic Name Dose Route Start Last Admin Trade Name Freq PRN Reason Stop Dose Admin Hydrocodone Bitart/Acetaminophen 2 tab 06/04/19 09:08 06/09/19 14:48 [place] 10/325 PO 2 tab Q4H PRN Administration PAIN (4-6) Albuterol/Ipratropium 3 ml 06/06/19 01:00 06/09/19 12:28 Duoneb NEB 3 ml [id number] SHEN Administration Amitriptyline HCl 10 mg 06/04/19 21:00 06/08/19 19:47 Elavil PO 10 mg HS SHEN Administration Amlodipine Besylate 5 mg 06/05/19 09:00 06/09/19 09:12 Norvasc PO Not Given DAILY SHEN Aspirin 81 mg 06/04/19 21:00 06/09/19 09:17 Ecotrin PO 81 mg BID SHEN Administration Atorvastatin Calcium 40 mg 06/04/19 21:00 06/08/19 19:45 Lipitor PO 40 mg HS SHEN Administration Calcium Carbonate 1,000 mg 06/08/19 12:57 06/09/19 09:20 Tums PO 1,000 mg Q4H PRN Administration Heartburn or Indigestion Diphenhydramine HCl 25 mg 06/04/19 12:13 06/09/19 12:06 Benadryl PO 25 mg Q6H PRN Administration Itching Docusate Sodium 100 mg 06/06/19 21:00 06/09/19 09:16 Colace PO 100 mg BID SHEN Administration Famotidine 20 mg 06/05/19 09:00 06/09/19 09:16 Pepcid PO 20 mg DAILY SHEN Administration Fentanyl 50 mcg 06/04/19 09:09 06/07/19 11:22 Sublimaze IV 50 mcg Q1H PRN Administration BREAKTHROUGH PAIN Ferrous Gluconate 324 mg 06/04/19 21:00 06/09/19 09:17 Fergon PO 324 mg BID SHEN Administration Guaifenesin/Codeine Phosphate 10 ml 06/06/19 13:01 06/08/19 08:49 Robitussin Ac PO 10 ml Q6H PRN Administration Cough Sodium Chloride 1,000 mls @ 100 mls/hr 06/04/19 12:15 06/09/19 12:03 Normal Saline 0.9% IV Not Given .Q10H SHEN Insulin Glargine 30 units/ 0.3 mls @ 0 mls/hr 06/05/19 09:00 06/09/19 09:17 Miscellaneous Medication SC 0.3 mls QAM SHEN Administration Iron/Minerals/Multivitamins 1 tab 06/05/19 09:00 06/09/19 09:16 Theragran M PO 1 tab DAILY [facility] Administration Ketorolac Tromethamine 15 mg 06/09/19 11:00 06/09/19 12:02 Toradol IVP 06/11/19 11:01 15 mg Q6H SHEN Administration Levofloxacin 500 mg 06/09/19 06:00 06/09/19 05:38 Levaquin PO 500 mg 0600 SHEN Administration Lisinopril 20 mg 06/04/19 21:00 06/08/19 19:49 Zestril PO 20 mg HS SHEN Administration Lubiprostone 24 mcg 06/05/19 09:00 06/09/19 09:15 Amitiza PO 24 mcg DAILY SHEN Administration Magnesium Hydroxide 30 ml 06/06/19 14:43 06/08/19 13:29 Milk Of Magnesium PO 30 ml DAILYPRN PRN Administration Constipation Metronidazole 500 mg 06/07/19 21:00 06/09/19 14:47 Flagyl PO 500 mg TID SHEN Administration Ondansetron HCl 4 mg 06/04/19 09:08 06/09/19 10:57 Zofran IVP 4 mg Q6H PRN Administration Nausea/Vomiting Senna/Docusate Sodium 2 tab 06/04/19 21:00 06/09/19 09:16 Senokot S PO 2 tab BID SHEN Administration Sodium Chloride 10 ml 06/04/19 21:00 06/09/19 09:22 Flush - Normal Saline IVF 10 ml Q12HR SHEN Administration Tizanidine HCl 2 mg 06/04/19 21:00 06/08/19 19:43 Zanaflex PO 2 mg HS SHEN Administration Tramadol HCl 100 mg 06/09/19 11:00 06/09/19 12:00 Ultram PO 100 mg Q6H SHEN Administration Trospium 20 mg 06/04/19 21:00 06/09/19 09:17 Trospium PO 20 mg BID SHEN Administration - Exam Eye: PERRL Heart: RRR, no murmur, no gallops, no rubs, normal peripheral pulses Respiratory: CTAB (+ rhonchi bilaterally) Gastrointestinal: soft, non-tender, non-distended, normal bowel sounds Extremities: no cyanosis (+ edema in the right knee, no erythema, mild warmth) Hosp A/P (1) Pneumonia Code(s): J18.9 - PNEUMONIA, UNSPECIFIED ORGANISM Status: Acute (2) Status post total knee replacement, right Code(s): Z96.651 - PRESENCE OF RIGHT ARTIFICIAL KNEE JOINT Status: Acute (3) Asthma Code(s): J45.909 - UNSPECIFIED ASTHMA, UNCOMPLICATED Status: Chronic (4) Osteoarthritis Code(s): M19.90 - UNSPECIFIED OSTEOARTHRITIS, UNSPECIFIED SITE Status: Chronic - Plan * Pneumonia- she continues with the cough, - will check a CXR to assess the progress, and will add Mucinex * Incentive Spirometry-continue * Asthma- stable * Symptom management- this appears much improved from yesterday continue as per Orthopedics
[2019-06-09] MEDS: guaiFENesin/Codeine Phosphate 200 mg/20 mg 10 ml UD Cup PO PRN (17:11)
--- NOTE | 2019-06-09 17:47 | RAD ---
EXAM: Two views chest PROVIDED CLINICAL HISTORY: Persistent cough. COMPARISON: 06/05/2019 FINDINGS: Cardiac silhouette is mildly enlarged. Pulmonary vasculature is within normal limits. There is mild e levation of the right hemidiaphragm. There is improvement in aeration at the right lung base, and the previously noted patchy opacity at the right lung base is not visualized on this exam. Pleural an d parenchymal changes at the left lung base are also improved which may be related improvement in left pleural effusion and atelectasis. Curvilinear density overlies the posterior lung bases, but thi s is seen on prior exam and was also present on study of 08/27/2018. This could be related to focal area of eventration of the diaphragm. No new area of consolidation is seen. The osseous structures judge ve a normal appearance. IMPRESSION: No acute cardiopulmonary process.
[2019-06-09] MEDS: guaiFENesin ER 600 MG TAB PO SCH (20:21)
[2019-06-09] MEDS: Atorvastatin Calcium 40 MG TAB PO SCH (20:21)
[2019-06-09] MEDS: Amitriptyline HCl 10 MG TAB PO SCH (20:21)
[2019-06-09] MEDS: Lisinopril 20 MG TAB PO SCH (20:22)
[2019-06-09] MEDS: tiZANidine HCl 4 MG TAB PO SCH (20:23)
[2019-06-10] MEDS: traMADol HCl 50 MG TAB PO SCH ×2 (05:24→11:20)
[2019-06-10] MEDS: Ketorolac Tromethamine 30 MG/ML VIAL IVP SCH ×2 (05:25→11:21)
[2019-06-10] MEDS: Sodium Chloride 0.9% 1,000 ML IV SCH (07:38)
[2019-06-10] MEDS: Famotidine 20 MG TAB PO SCH (08:51)
[2019-06-10] MEDS: Amlodipine 5 MG TAB PO SCH (08:51)
[2019-06-10] MEDS: Docusate 100 MG CAP PO SCH (08:51)
[2019-06-10] MEDS: Lubiprostone 24 MCG CAP PO SCH (08:51)
[2019-06-10] MEDS: Senokot S 8.6-50 MG TAB PO SCH (08:52)
[2019-06-10] MEDS: Multivitamin W/ Minerals 1 TAB PO SCH (08:52)
[2019-06-10] MEDS: Trospium 20 MG TAB PO SCH (08:52)
[2019-06-10] MEDS: metroNIDAZOLE 500 MG TAB PO SCH ×2 (08:53→14:11)
[2019-06-10] MEDS: Ferrous Gluconate 324 MG TAB PO SCH (08:53)
[2019-06-10] MEDS: Aspirin 81 mg Enteric Coated Tablet PO SCH (08:53)
[2019-06-10] MEDS: Insulin Glargine 30 UNITS in Pre-Filled Syringe 1 EACH SC SCH (08:53)
[2019-06-10] MEDS: guaiFENesin ER 600 MG TAB PO SCH (08:54)
[2019-06-10] MEDS: HYDROcodone/Acetaminophen 10/325 mg Tablet PO PRN ×2 (08:58→13:34)
[2019-06-10] MEDS: Milk Of Magnesia 30 ML UDCUP PO PRN (10:30)
[2019-06-10 12:30] VITALS: BP 123/70; TEMP 98.3
[2019-06-10] MEDS: Ondansetron PF 4 MG/2 ML Vial IVP PRN (13:34)
== END 2019-06-10 16:00 | DRG 466 ==
LOC: SURG A 06-04 07:18 → SJJU 06-04 13:29
PROVIDERS: ADMIT Orthopaedic Surgery; ATTEND Orthopaedic Surgery
PROC: 0SPC0JZ Removal of Synthetic Substitute from Right Knee Joint, Open Approach (ICD-10-PCS; principal; 2019-06-04)
PROC: 0SRC0J9 Replacement of Right Knee Joint with Synthetic Substitute, Cemented, Open Approach (ICD-10-PCS; 2019-06-04)
DX: T84.092A Other mechanical complication of internal right knee prosthesis, initial encounter (principal); J18.9 Pneumonia, unspecified organism; Y79.2 Prosthetic and other implants, materials and accessory orthopedic devices associated with adverse incidents; E78.00 Pure hypercholesterolemia, unspecified; I10 Essential (primary) hypertension; K21.9 Gastro-esophageal reflux disease without esophagitis; M23.92 Unspecified internal derangement of left knee; E11.9 Type 2 diabetes mellitus without complications; J45.909 Unspecified asthma, uncomplicated; E78.5 Hyperlipidemia, unspecified; M54.9 Dorsalgia, unspecified; G89.29 Other chronic pain; M19.90 Unspecified osteoarthritis, unspecified site; Z90.710 Acquired absence of both cervix and uterus; Z79.899 Other long term (current) drug therapy; Z79.4 Long term (current) use of insulin; Z79.51 Long term (current) use of inhaled steroids; K59.00 Constipation, unspecified; D64.9 Anemia, unspecified
CPT/HCPCS: 36415; 36416; 71045; 71046; 80048; 80053; 81001; 83605; 84145; 85025; 85027; 87086; 94640; C1713; C1776; J1170; J1815; J1885; J1956; J2001; J2250; J2405; J2550; J2704; J2765; J2795; J3010; J3370; J3490; J7620; Q0163

== ENCOUNTER 2019-06-25 12:09 | Emergency (ER) | payer MEDICARE, MEDICAID ==
--- NOTE | 2019-06-25 15:25 | RAD ---
ABDOMINAL SURVEY WITH PA CHEST AND TWO VIEW ABDOMEN: 06/25/19 INDICATION: Constipation. FINDINGS: The lung ellis are clear on PA chest exam. Supine and upright views of abdomen show prominent stool throughout the colon. Large amount of stool in the rectum may represent fecal impaction. Scattered small bowel gas is unremarkable. No mass effe ct. Post cholecystectomy change. IMPRESSION: Prominent stool throughout the colon with stool especially pronounced in the rectosigmoid region. POS: JEET
== END 2019-06-25 16:39 | disposition short-term general hospital (02) ==
LOC: ERS 12:09
DX: K59.00 Constipation, unspecified (principal); J45.909 Unspecified asthma, uncomplicated; F32.9 Major depressive disorder, single episode, unspecified; E10.9 Type 1 diabetes mellitus without complications; Z79.891 Long term (current) use of opiate analgesic; Z79.899 Other long term (current) drug therapy
CPT/HCPCS: 74022

== ENCOUNTER 2019-11-19 09:08 | Emergency (ER) | payer MEDICARE, OTHER ==
[2019-11-19] MEDS ORDERED: Ketorolac Tromethamine 30 MG/ML VIAL ONE (09:59)
== END 2019-11-19 10:04 | disposition home or self-care (01) ==
LOC: ERS 09:08
DX: G89.29 Other chronic pain (principal); M54.5 Low back pain; E10.9 Type 1 diabetes mellitus without complications; I10 Essential (primary) hypertension; F32.9 Major depressive disorder, single episode, unspecified; Z79.899 Other long term (current) drug therapy
CPT/HCPCS: 96372; 99281; J1885

== ENCOUNTER 2020-02-08 09:24 | Outpatient (CLI) | payer MEDICARE, OTHER ==
--- NOTE | 2020-02-08 09:38 | RAD ---
EXAM: Chest 2 views: HISTORY: Dyspnea COMPARISON: 06/09/2019 FINDINGS: There is a normal-sized cardiomediastinal silhouette. Increased interstitial lung markings are prese nt. There is no evidence of consolidation, mass, or pleural effusion. No acute osseous abnormality. IMPRESSION: No evidence of acute cardiopulmonary disease
== END 2020-02-08 09:25 | disposition home or self-care (01) ==
LOC: BICRAD 09:24
PROVIDERS: ATTEND Internal Medicine Critical Care Medicine
DX: R06.00 Dyspnea, unspecified (principal)
CPT/HCPCS: 71046

== ENCOUNTER 2020-03-05 08:30 | Emergency (ER) | payer MEDICARE, MEDICAID | END 2020-03-05 09:05 | disposition home or self-care (01) | LOC: ERS 08:30 | DX: K04.7 Periapical abscess without sinus (principal); I10 Essential (primary) hypertension; J45.909 Unspecified asthma, uncomplicated; E10.9 Type 1 diabetes mellitus without complications; F32.9 Major depressive disorder, single episode, unspecified; Z79.1 Long term (current) use of non-steroidal anti-inflammatories (NSAID); Z79.899 Other long term (current) drug therapy | CPT/HCPCS: 99282 ==

== ENCOUNTER 2020-04-10 07:30 | Outpatient (CLI) | payer MEDICARE, MEDICAID ==
--- NOTE | 2020-04-10 09:17 | MRI ---
MRI Lower Ext Jt Lt WO Con History: Knee pain Comparison: Radiographs March 22, 2020 Findings: Medial meniscus: Undersurface flap tear throughout the medial meniscal body extending to th e posterior horn right junction. Tear spares the root. 2 mm gutter extrusion of the flap fragment. Lateral meniscus: Low-grade intrameniscal degenerative signal. No tear. No gutter extrusion. The ACL, PCL, MCL and LCL are all intact. Extensor mechanism: Quadriceps tendon, patella and patellar tendon are intact. Cartilage: Patellofemoral compartment: Interpolar region of the lateral patellar facet multifocal full-thickness chondral fissures with subcortical reactive marrow changes. There is also some mild chondral delamination of the medial patellar facet. Medial compartment: 50-60% chondral fraying throughout the weightbearing surfaces medial femoral cond yle medial tibial plateau. No full-thickness defect is appreciated. Lateral compartment: Along the the posterior subsequent meniscal tibial rim are multifocal full-thick ness chondral fissures with subcortical reactive marrow change. Muscles: Muscle signal and bulk is normal. Soft tissues: Small joint effusion. No large free bodies appreciated. Trace popliteal cyst. No dehisc ence. Impression: 1. Undersurface flap tear medial meniscal body and posterior horn sparing the root. 2-3 mm gutter ext rusion of the flap fragment with mild loss of hoop stress. 2. Multifocal full-thickness chondral fissures of the lateral patellar facet as well as posterior lat eral subcutaneous meniscal tibial rim. 3. Grade 2/3 medial compartment chondromalacia.
== END 2020-04-10 07:31 | disposition home or self-care (01) ==
LOC: BICMRI 07:30
PROVIDERS: ATTEND Orthopaedic Surgery
DX: M25.562 Pain in left knee (principal); S83.242A Other tear of medial meniscus, current injury, left knee, initial encounter; M94.262 Chondromalacia, left knee

== ENCOUNTER 2020-04-19 06:59 | Outpatient (CLI) | payer MEDICARE, MEDICAID ==
[2020-04-20 02:42] LABS: SARS-CoV-2 MS2 Positive; SARS-CoV-2 N Gene Negative; SARS-CoV-2 S Gene Negative; SARS-CoV-2 by NAA Not Detected (NotDetected); SARS-CoV-2 orf1ab Negative
== END 2020-04-19 07:00 | disposition home or self-care (01) ==
LOC: LABBT 06:59
PROVIDERS: ATTEND Orthopaedic Surgery
DX: S83.242A Other tear of medial meniscus, current injury, left knee, initial encounter (principal); Z20.828 Contact with and (suspected) exposure to other viral communicable diseases
CPT/HCPCS: 87635; U0003

== ENCOUNTER 2020-04-25 08:19 | Day surgery (SDC) | payer MEDICARE, MEDICAID ==
[2020-04-19 13:44] VITALS: BMI 30.2
[2020-04-25] MEDS ORDERED: Clindamycin/D5W 600 mg/50 ml Premix Bag ONE (08:49)
[2020-04-25] MEDS ORDERED: PROPOFOL 20 ML ONE (09:38)
[2020-04-25] MEDS ORDERED: Fentanyl 100 MCG/2 ML VIAL ONE (10:22)
[2020-04-25] MEDS ORDERED: Bupivacaine HCl 0.5%/Epinephrine 1:200,000/PF 30 ml Vial ONE (10:31)
[2020-04-25] MEDS ORDERED: Lidocaine 2% w/Epinephrine 1:200K 20 ML VIAL ONE (10:31)
[2020-04-25] MEDS ORDERED: Ondansetron PF 4 MG/2 ML Vial ONE (10:31)
[2020-04-25] MEDS ORDERED: Lidocaine 1% PF 5 ML VIAL ONE (10:31)
[2020-04-25] MEDS ORDERED: PROPOFOL 200 MG/20 ML VIAL ONE (10:31)
--- NOTE | 2020-04-25 12:59 | OP ---
DATE OF PROCEDURE: 04/25/2020 PREOPERATIVE DIAGNOSIS: Medial meniscus tear, left knee. POSTOPERATIVE DIAGNOSES: 1. Medial meniscus tear, left knee. 2. Some grade 3 chondromalacia of medial femoral condyle and medial tibial plateau. ANESTHESIA: General. BLOOD LOSS: Minimal. SPECIMEN: None. DRAINS: None. COMPLICATIONS: None. DESCRIPTION OF PROCEDURE: Left leg was prepped and draped in the usual sterile fashion. Scope was placed in lateral portal. Probe was placed in medial portal. She had no arthritis of the patellofemoral joint or the lateral compartment. Medial compartment had some grade 3 chondromalacia changes as described above and extensive tearing of most of the posterior medial meniscus. I debrided the medial meniscus using basket forceps, smoothed using a 4.0 full-radius resector. Knee was then irrigated and drained. Sterile dressings applied. Job ID: [id number]
[2020-04-25] MEDS ORDERED: HYDROcodone/Acetaminophen 5/325 mg Tablet ONE (13:39)
== END 2020-04-25 14:45 | disposition home or self-care (01) ==
LOC: SDC 08:19
PROVIDERS: ATTEND Orthopaedic Surgery
PROC: 0SBD4ZZ Excision of Left Knee Joint, Percutaneous Endoscopic Approach (ICD-10-PCS; principal; 2020-04-25)
DX: S83.242A Other tear of medial meniscus, current injury, left knee, initial encounter (principal); M94.262 Chondromalacia, left knee; E11.9 Type 2 diabetes mellitus without complications; E78.00 Pure hypercholesterolemia, unspecified; I10 Essential (primary) hypertension; K21.9 Gastro-esophageal reflux disease without esophagitis; F32.9 Major depressive disorder, single episode, unspecified; Z79.4 Long term (current) use of insulin; Z79.899 Other long term (current) drug therapy; Z88.0 Allergy status to penicillin
CPT/HCPCS: 36416; J2405; J2704; J3010; J3490

== ENCOUNTER 2020-05-18 09:25 | Emergency (ER) | payer MEDICARE, OTHER ==
[2020-05-18 09:56] LABS: #Basophils 0.1 thou/uL (0.0-0.2); #Eosinphils 0.1 thou/uL (0.0-0.7); #Lymphocytes 2.5 thou/uL (1.20-3.40); #Monocytes 1.1 thou/uL (0.11-0.59); #Neutrophils 7.5 thou/uL (1.40-6.50); %Basophils 0.8 % (0.0-1.0); %Eosinophils 1.1 % (0.0-10.0); %Lymphocytes 22.3 % (21.0-51.0); %Monocytes 9.9 % (0.0-10.0); %Neutrophils 65.8 % (42.0-75.0); Hemoglobin 12.3 g/dL (12.0-16.0); Mean Corpuscular HGB CONC 33.4 g/dL (32.0-36.0); Mean Corpuscular Hemoglobin 30.5 pg (27.0-31.0); Mean Corpuscular Volume 91.3 fL (78.0-98.0); Mean Platelet Volume 8.5 fL (7.4-10.4); Platelet Count 258 thou/uL (130-400); RBC Distribution Width 11.5 % (11.5-14.5); Red Blood Cell (RBC) Count 4.02 mill/uL (4.20-5.40); White Blood Cell (WBC) Count 11.3 thou/uL (4.8-10.8)
[2020-05-18 10:09] LABS: ALT (SGPT) 9 U/L (8-55); AST (SGOT) 15 U/L (5-34); Albumin 4.2 g/dL (3.4-4.8); Alkaline Phosphatase 133 U/L (40-110); Anion Gap 13 mmol/L (10-20); BUN (Urea Nitrogen) 14 mg/dL (9.8-20.1); Bilirubin, Total 0.4 mg/dL (0.2-1.2); Calc. Creatinine Clearance 0 mL/min (70-130); Calcium 9.6 mg/dL (7.8-10.44); Carbon Dioxide 26 mmol/L (23-31); Chloride 107 mmol/L (98-107); Globulin 3.5 g/dL (2.4-3.5); Glucose 128 mg/dL (80-115); Potassium 4.4 mmol/L (3.5-5.1); Protein, Total 7.7 g/dL (6.0-8.3); Sodium 142 mmol/L (136-145)
--- NOTE | 2020-05-18 10:36 | RAD ---
Exam: Chest one view HISTORY:Dyspnea Comparison: 06/17/2019 FINDINGS: Cardiac silhouette: Normal Aorta: Unremarkable Pulmonary vessels: Normal Costophrenic angles: No pleural effusion. There appears to be eventration of the right hemidiaphragm. Confirmation with a lateral radiograph of the beneficial. LUNGS: Hyperinflation with chronic changes. Pneumothorax: None Osseous abnormalities: None IMPRESSION: Hyperinflation. Chronic changes. Eventration right hemidiaphragm. Lateral radiograph for confirmation is recommended.
[2020-05-18] MEDS ORDERED: Ketorolac Tromethamine 30 MG/ML VIAL ONE (11:46)
[2020-05-18 12:35] LABS: Troponin I Less than 0.010 ng/mL (< 0.028)
== END 2020-05-18 13:05 | disposition home or self-care (01) ==
LOC: ERS 09:25
DX: J45.901 Unspecified asthma with (acute) exacerbation (principal); R07.81 Pleurodynia; E10.9 Type 1 diabetes mellitus without complications; I10 Essential (primary) hypertension; Z79.899 Other long term (current) drug therapy
CPT/HCPCS: 36415; 71045; 80053; 83880; 84484; 85025; 93005; 94760; 96374; 96375; J1885

== ENCOUNTER 2020-08-16 10:03 | Outpatient (CLI) | payer MEDICARE, MEDICAID | END 2020-08-16 10:04 | disposition home or self-care (01) | LOC: CTENTCT 10:03 | PROVIDERS: ATTEND Specialist | DX: K21.9 Gastro-esophageal reflux disease without esophagitis (principal) | CPT/HCPCS: 70486 ==

== ENCOUNTER 2020-09-01 08:56 | Outpatient (CLI) | payer MEDICARE, MEDICAID ==
[2020-09-01] MEDS ORDERED: Magnevist 469MG/ML 20 ML VIAL ONE (12:01)
== END 2020-09-01 08:57 | disposition home or self-care (01) ==
LOC: BICMRI 08:56
PROVIDERS: ATTEND Neurological Surgery
DX: M47.26 Other spondylosis with radiculopathy, lumbar region (principal); M54.5 Low back pain; M48.061 Spinal stenosis, lumbar region without neurogenic claudication; Z98.890 Other specified postprocedural states
CPT/HCPCS: 72158; 82565; A9579

== ENCOUNTER 2020-09-06 16:27 | Emergency (ER) | payer MEDICARE, MEDICAID ==
[2020-09-06] MEDS ORDERED: methylPREDNISolone Sod Succ/PF 125 MG/2 ML VIAL ONE (17:02)
[2020-09-06] MEDS ORDERED: Morphine 4 MG/ML VIAL ONE ×2 (17:02→17:58)
[2020-09-06 17:17] LABS: #Basophils 0.1 thou/uL (0.0-0.2); #Eosinphils 0.2 thou/uL (0.0-0.7); #Lymphocytes 3.1 thou/uL (1.20-3.40); #Monocytes 1.5 thou/uL (0.11-0.59); #Neutrophils 13.2 thou/uL (1.40-6.50); %Basophils 0.4 % (0.0-1.0); %Eosinophils 0.9 % (0.0-10.0); %Lymphocytes 17.2 % (21.0-51.0); %Monocytes 8.1 % (0.0-10.0); %Neutrophils 73.3 % (42.0-75.0); Hemoglobin 12.4 g/dL (12.0-16.0); Mean Corpuscular HGB CONC 32.1 g/dL (32.0-36.0); Mean Corpuscular Hemoglobin 29.7 pg (27.0-31.0); Mean Corpuscular Volume 92.7 fL (78.0-98.0); Mean Platelet Volume 8.1 fL (7.4-10.4); Platelet Count 313 thou/uL (130-400); Red Blood Cell (RBC) Count 4.16 mill/uL (4.20-5.40)
[2020-09-06 17:38] LABS: ALT (SGPT) 22 U/L (8-55); AST (SGOT) 25 U/L (5-34); Albumin 4.3 g/dL (3.4-4.8); Alkaline Phosphatase 129 U/L (40-110); Anion Gap 19 mmol/L (10-20); BUN (Urea Nitrogen) 17 mg/dL (9.8-20.1); Bilirubin, Total 0.4 mg/dL (0.2-1.2); Calc. Creatinine Clearance 0 mL/min (70-130); Calcium 9.8 mg/dL (7.8-10.44); Carbon Dioxide 19 mmol/L (23-31); Chloride 106 mmol/L (98-107); Globulin 3.5 g/dL (2.4-3.5); Glucose 146 mg/dL (80-115); Lipase 27 U/L (8-78); Protein, Total 7.8 g/dL (5.8-8.1); Sodium 140 mmol/L (136-145)
[2020-09-06 19:07] LABS: Bacteria/HPF None Seen HPF (None Seen); Bilirubin Negative (Negative); Blood, Urine Negative (Negative); Clarity Clear (Clear); Glucose, Urine (Dipstick) Normal (Negative); Ketone, Urine Negative (Negative); Leukocyte 75 Leu/uL (Negative); Nitrite Negative (Negative); Protein, Urine (Dipstick) Negative (Neg-Trace); RBC/HPF 0-3 HPF (0-3); Specific Gravity, Urine 1.018 (1.002-1.036); Squamous Epithelial 0-3 HPF (0-3); Urobilinogen Normal mg/dL (Less than 2)
[2020-09-06 19:07] LABS: SARS-CoV-2 NAA Rapid Test Not Detected (NotDetected)
== END 2020-09-06 19:28 | disposition home or self-care (01) ==
LOC: ERS 16:27
DX: J45.901 Unspecified asthma with (acute) exacerbation (principal); J18.9 Pneumonia, unspecified organism; E10.9 Type 1 diabetes mellitus without complications; I10 Essential (primary) hypertension; Z20.822 Contact with and (suspected) exposure to COVID-19; Z79.899 Other long term (current) drug therapy
CPT/HCPCS: 0240U; 71045; 80053; 83690; 83880; 84484; 85025; 85379; 87040; 93005; 96374; 96375; 99285; 36415; 81003; 81015; J2270; J2930; J7620

== ENCOUNTER 2020-10-03 08:17 | Outpatient (CLI) | payer MEDICARE, MEDICAID ==
[2020-10-03 10:09] LABS: Anion Gap 13 mmol/L (10-20); BUN (Urea Nitrogen) 14 mg/dL (9.8-20.1); Calc. Creatinine Clearance 0 mL/min (70-130); Carbon Dioxide 26 mmol/L (23-31); Chloride 108 mmol/L (98-107); Glucose 187 mg/dL (80-115); Potassium 4.3 mmol/L (3.5-5.1); Sodium 143 mmol/L (136-145)
[2020-10-03 14:49] LABS: SARS-CoV-2 PCR by NAA Not Detected (NotDetected)
== END 2020-10-03 08:18 | disposition home or self-care (01) ==
LOC: LABBT 08:17
PROVIDERS: ATTEND Neurological Surgery
DX: Z01.812 Encounter for preprocedural laboratory examination (principal); Z20.822 Contact with and (suspected) exposure to COVID-19
CPT/HCPCS: 80048; U0003; U0005

== ENCOUNTER 2020-10-06 06:12 | Day surgery (SDC) | payer MEDICARE, MEDICAID ==
[2020-10-05 12:03] VITALS: BMI 32.0
[2020-10-06] MEDS ORDERED: Levofloxacin 500 mg/D5W 100 ml Premix Bag ONE (07:23)
[2020-10-06] MEDS ORDERED: Clindamycin/D5W 900 mg/50 ml Premix Bag ONE ×2 (07:23→14:03)
[2020-10-06] MEDS ORDERED: Bupivacaine PF 0.5% 30 ML VIAL ONE (07:54)
[2020-10-06] MEDS ORDERED: EPINEPHrine 1 MG/ML AMP ONE (07:54)
[2020-10-06] MEDS ORDERED: Ondansetron PF 4 MG/2 ML Vial ONE ×2 (08:33→14:20)
[2020-10-06] MEDS ORDERED: Lidocaine 1% PF 5 ML VIAL ONE (08:33)
[2020-10-06] MEDS ORDERED: PROPOFOL 200 MG/20 ML VIAL ONE (08:33)
[2020-10-06] MEDS ORDERED: Glycopyrrolate 0.2 MG/ML 5 ML SYRINGE ONE (08:33)
[2020-10-06] MEDS ORDERED: Rocuronium Bromide 10 MG/ML (10ML VIAL) ONE (08:33)
[2020-10-06] MEDS ORDERED: Fentanyl 100 MCG/2 ML VIAL ONE ×4 (08:36→11:45)
[2020-10-06] MEDS ORDERED: HYDROmorphone 2 MG/ML VIAL ONE (09:30)
[2020-10-06] MEDS ORDERED: Morphine 4 MG/ML VIAL ONE ×2 (12:29→13:07)
[2020-10-06] MEDS ORDERED: HYDROcodone/Acetaminophen 5/325 mg Tablet ONE (14:46)
[2020-10-06] MEDS ORDERED: Cyclobenzaprine 10 MG TAB ONE (15:37)
== END 2020-10-06 16:05 | disposition home or self-care (01) ==
LOC: SDC 06:12
PROVIDERS: ATTEND Neurological Surgery
PROC: 0SG0071 Fusion of Lumbar Vertebral Joint with Autologous Tissue Substitute, Posterior Approach, Posterior Column, Open Approach (ICD-10-PCS; principal; 2020-10-06)
DX: M43.16 Spondylolisthesis, lumbar region (principal); M54.16 Radiculopathy, lumbar region; M48.061 Spinal stenosis, lumbar region without neurogenic claudication; G89.4 Chronic pain syndrome; E78.00 Pure hypercholesterolemia, unspecified; E10.9 Type 1 diabetes mellitus without complications; I10 Essential (primary) hypertension; E78.5 Hyperlipidemia, unspecified; K21.9 Gastro-esophageal reflux disease without esophagitis; M19.90 Unspecified osteoarthritis, unspecified site; J44.9 Chronic obstructive pulmonary disease, unspecified; Z87.891 Personal history of nicotine dependence; Z79.899 Other long term (current) drug therapy; Z88.0 Allergy status to penicillin
CPT/HCPCS: 20930; 20936; 22612; 22840; 76000; 82962; C1713 ×5; C1768; 36416; J0171; J1170; J1956; J2270; J2405; J2704; J3010; J3490; S0020

== ENCOUNTER 2020-10-08 01:36 | Observation (INO) | payer MEDICARE, MEDICAID ==
[2020-10-08] MEDS ORDERED: Morphine 4 MG/ML VIAL ONE ×2 (02:22→05:03)
[2020-10-08] MEDS ORDERED: Ondansetron PF 4 MG/2 ML Vial ONE (02:22)
[2020-10-08] MEDS ORDERED: HYDROcodone/Acetaminophen 5/325 mg Tablet ONE (05:03)
[2020-10-08] MEDS ORDERED: Bisacodyl 10 MG SUPP PR PRN (06:39)
[2020-10-08] MEDS ORDERED: HYDROcodone/Acetaminophen 10/325 mg Tablet PO PRN (06:39)
[2020-10-08] MEDS ORDERED: Ondansetron PF 4 MG/2 ML Vial IVP PRN (06:39)
[2020-10-08] MEDS ORDERED: tiZANidine HCl 4 MG TAB PO PRN (06:39)
[2020-10-08] MEDS ORDERED: diphenhydrAMINE 50 MG/ML VIAL IVP PRN (06:39)
[2020-10-08] MEDS ORDERED: Acetaminophen 325 MG TAB PO PRN (06:39)
[2020-10-08] MEDS ORDERED: Dexamethasone 4 mg/ml Vial SLOW IVP SCH (07:00)
[2020-10-08] MEDS: Clindamycin/D5W 900 MG in Premix Bag 1 BAG IVPB SCH ×2 (09:11→17:40)
[2020-10-08] MEDS ORDERED: [UNRECOGNIZED DRUG - OTHER] PO PRN (13:20)
[2020-10-08] MEDS: Guaifenesin DM 100-10/5 ML UDCUP PO PRN ×2 (14:04→21:37)
[2020-10-08] MEDS: Morphine 2 MG/ML VIAL SLOW IVP PRN (14:06)
[2020-10-08] MEDS ORDERED: Magnevist 469MG/ML 20 ML VIAL ONE (15:25)
[2020-10-08] MEDS ORDERED: Dextrose 5% in Water 1,000 ML IV PRN (16:30)
[2020-10-08] MEDS ORDERED: Dextrose 50% Abboject 50 ML SYRINGE IVP PRN (16:30)
[2020-10-08] MEDS: HumaLOG 300 UNITS/3 ML VIAL SC PRN (17:41)
[2020-10-08 18:06] VITALS: BMI 32.7
[2020-10-08] MEDS: HYDROcodone/Acetaminophen 10/325 mg Tablet PO PRN (19:33)
[2020-10-08] MEDS: cloNIDine 0.1 MG TAB PO SCH (20:48)
[2020-10-08] MEDS: Dexamethasone 4 MG TAB PO SCH (20:49)
[2020-10-08] MEDS: Amitriptyline HCl 25 MG TAB PO SCH (20:49)
[2020-10-08] MEDS: Lubiprostone 24 MCG CAP PO SCH (20:49)
[2020-10-08] MEDS: Lantus 1000 UNITS/10 ML VIAL SC SCH (21:24)
[2020-10-09] MEDS: HYDROcodone/Acetaminophen 10/325 mg Tablet PO PRN ×2 (09:48→21:13)
[2020-10-09] MEDS: Gabapentin 300 MG CAP PO SCH (09:49)
[2020-10-09] MEDS: Dexamethasone 4 MG TAB PO SCH ×2 (09:50→21:00)
[2020-10-09] MEDS: cloNIDine 0.1 MG TAB PO SCH ×2 (09:50→21:00)
[2020-10-09] MEDS: NIFEdipine XL 30 MG TAB PO SCH (09:50)
[2020-10-09] MEDS: Lubiprostone 24 MCG CAP PO SCH ×2 (09:50→20:59)
[2020-10-09] MEDS: Guaifenesin DM 100-10/5 ML UDCUP PO PRN (10:05)
[2020-10-09] MEDS: HumaLOG 300 UNITS/3 ML VIAL SC PRN ×2 (12:02→18:46)
[2020-10-09] MEDS: Morphine 2 MG/ML VIAL SLOW IVP PRN (18:31)
[2020-10-09] MEDS: Amitriptyline HCl 25 MG TAB PO SCH (21:00)
[2020-10-09] MEDS: Lantus 1000 UNITS/10 ML VIAL SC SCH (21:00)
[2020-10-10] MEDS: NIFEdipine XL 30 MG TAB PO SCH (08:19)
[2020-10-10] MEDS: cloNIDine 0.1 MG TAB PO SCH (08:20)
[2020-10-10] MEDS: Lubiprostone 24 MCG CAP PO SCH (08:20)
[2020-10-10] MEDS: Dexamethasone 4 MG TAB PO SCH (08:20)
[2020-10-10] MEDS: Gabapentin 300 MG CAP PO SCH (08:20)
[2020-10-10] MEDS: HYDROcodone/Acetaminophen 10/325 mg Tablet PO PRN (08:23)
[2020-10-10] MEDS ORDERED: Clindamycin/D5W 900 MG in Premix Bag 1 BAG IVPB SCH (08:30)
[2020-10-10] MEDS: HumaLOG 300 UNITS/3 ML VIAL SC PRN (11:28)
[2020-10-10 11:54] VITALS: BP 125/74; TEMP 97.4
== END 2020-10-10 12:59 | disposition home or self-care (01) ==
LOC: ERS 01:36 → SURG B 06:39
PROVIDERS: ADMIT Neurological Surgery; ATTEND Neurological Surgery
DX: G89.18 Other acute postprocedural pain (principal); M48.061 Spinal stenosis, lumbar region without neurogenic claudication; M43.16 Spondylolisthesis, lumbar region; M51.26 Other intervertebral disc displacement, lumbar region; M51.27 Other intervertebral disc displacement, lumbosacral region; G89.4 Chronic pain syndrome; E78.00 Pure hypercholesterolemia, unspecified; I10 Essential (primary) hypertension; R32 Unspecified urinary incontinence; E10.9 Type 1 diabetes mellitus without complications; Z79.899 Other long term (current) drug therapy; Z88.0 Allergy status to penicillin; Z98.1 Arthrodesis status
CPT/HCPCS: 71045; 72158; 82962 ×3; 94640 ×3; 96374; 96375; 96376; 97110 ×2; 97116; 97139 ×3; 97530; 99285; J2270 ×2; 36416; A9579; G0378; J1100; J1815; J2405; J3490; J7620; J8540

== ENCOUNTER 2020-10-28 00:04 | Emergency (ER) | payer MEDICARE, OTHER ==
[2020-10-28] MEDS ORDERED: Ondansetron PF 4 MG/2 ML Vial ONE (00:22)
[2020-10-28] MEDS ORDERED: Morphine 4 MG/ML VIAL ONE (00:22)
[2020-10-28 00:52] LABS: Hemoglobin 11.1 g/dL (12.0-16.0); Mean Corpuscular Hemoglobin 32.2 pg (27.0-31.0); Mean Corpuscular Volume 91.9 fL (78.0-98.0); Mean Platelet Volume 8.1 fL (7.4-10.4); Platelet Count 352 thou/uL (130-400); RBC Distribution Width 12.2 % (11.5-14.5); Red Blood Cell (RBC) Count 3.44 mill/uL (4.20-5.40); White Blood Cell (WBC) Count 18.4 thou/uL (4.8-10.8)
[2020-10-28 01:11] LABS: Band 5 % (5-11); Eosinophils 1 % (0-10); Lymphocytes 15 % (21-51); MDiff Complete? YES; Monocytes 9 % (0-10); Myelocyte 1 % (0-0); Neutrophil 68 % (42-75)
[2020-10-28 01:13] LABS: ALT (SGPT) 10 U/L (8-55); AST (SGOT) 27 U/L (5-34); Albumin 4.3 g/dL (3.4-4.8); Alkaline Phosphatase 120 U/L (40-110); Anion Gap 19 mmol/L (10-20); BUN (Urea Nitrogen) 12 mg/dL (9.8-20.1); Bilirubin, Total 0.2 mg/dL (0.2-1.2); Calc. Creatinine Clearance 0 mL/min (70-130); Calcium 10.1 mg/dL (7.8-10.44); Carbon Dioxide 16 mmol/L (23-31); Chloride 103 mmol/L (98-107); Globulin 4.5 g/dL (2.4-3.5); Glucose 209 mg/dL (80-115); Lipase 36 U/L (8-78); Potassium 4.3 mmol/L (3.5-5.1); Protein, Total 8.8 g/dL (5.8-8.1); Sodium 134 mmol/L (136-145)
[2020-10-28] MEDS ORDERED: Magnesium Citrate 300 ML BOT ONE (02:50)
[2020-10-28] MEDS ORDERED: Iopamidol-370 76% 500 ML 1 ML ONE (09:43)
== END 2020-10-28 02:54 | disposition home or self-care (01) ==
LOC: ERS 00:04
DX: K59.00 Constipation, unspecified (principal); E10.9 Type 1 diabetes mellitus without complications; I10 Essential (primary) hypertension; J45.909 Unspecified asthma, uncomplicated; Z79.899 Other long term (current) drug therapy
CPT/HCPCS: 74177; 80053; 83690; 85025; 96374; 96375; J2270; J2405; Q9967

== ENCOUNTER 2021-01-08 10:27 | Outpatient (CLI) | payer MEDICARE, MEDICAID | END 2021-01-08 10:28 | disposition home or self-care (01) | LOC: BICCT 10:27 | PROVIDERS: ATTEND Neurological Surgery | DX: M54.5 Low back pain (principal); M47.816 Spondylosis without myelopathy or radiculopathy, lumbar region; Z98.890 Other specified postprocedural states | CPT/HCPCS: 72131 ==

== ENCOUNTER 2021-03-11 08:22 | Inpatient (IN) | payer MEDICARE, MEDICAID ==
[2021-03-11] MEDS ORDERED: predniSONE 20 MG TAB ONE ×2 (09:35)
[2021-03-11 09:40] LABS: Hemoglobin 11.8 g/dL (12.0-16.0); Mean Corpuscular HGB CONC 32.8 g/dL (32.0-36.0); Mean Corpuscular Hemoglobin 30.8 pg (27.0-31.0); Mean Corpuscular Volume 94.1 fL (78.0-98.0); Mean Platelet Volume 7.8 fL (7.4-10.4); Platelet Count 258 thou/uL (130-400); Red Blood Cell (RBC) Count 3.84 mill/uL (4.20-5.40); White Blood Cell (WBC) Count 8.4 thou/uL (4.8-10.8)
[2021-03-11] MEDS ORDERED: Magnesium 2 GM/50 ML BAG (IN WATER) ONE (09:47)
[2021-03-11 09:49] LABS: ALT (SGPT) 13 U/L (8-55); AST (SGOT) 18 U/L (5-34); Albumin 4.3 g/dL (3.4-4.8); Alkaline Phosphatase 116 U/L (40-110); Anion Gap 17 mmol/L (10-20); BUN (Urea Nitrogen) 12 mg/dL (9.8-20.1); Bilirubin, Total 0.4 mg/dL (0.2-1.2); Calc. Creatinine Clearance 0 mL/min (70-130); Calcium 9.7 mg/dL (7.8-10.44); Carbon Dioxide 19 mmol/L (23-31); Chloride 106 mmol/L (98-107); Globulin 3.1 g/dL (2.4-3.5); Glucose 113 mg/dL (80-115); Protein, Total 7.4 g/dL (5.8-8.1); Sodium 138 mmol/L (136-145)
[2021-03-11 10:05] LABS: Band 4 % (5-11); Eosinophils 2 % (0-10); Lymphocytes 14 % (21-51); MDiff Complete? YES; Monocytes 13 % (0-10); Neutrophil 65 % (42-75); Platelet Morphology Comment Appears Adequate; Reactive Lymphocytes 1 % (0-10)
[2021-03-11] MEDS ORDERED: Acetaminophen 500 MG TAB ONE (10:40)
[2021-03-11] MEDS ORDERED: Aspirin Chewable 81 MG TAB ONE (11:35)
[2021-03-11] MEDS ORDERED: Cepastat Lozenges 1 LOZ PO PRN (12:40)
[2021-03-11] MEDS ORDERED: cloNIDine 0.1 MG TAB PO SCH ×2 (13:00→21:00)
[2021-03-11] MEDS ORDERED: NIFEdipine XL 30 MG TAB PO SCH (13:00)
[2021-03-11 13:10] LABS: SARS-CoV-2 NAA Rapid Test DETECTED (NotDetected)
[2021-03-11 14:04] LABS: Troponin I Less than 0.010 ng/mL (< 0.028)
[2021-03-11] MEDS: Guaifenesin DM 100-10/5 ML UDCUP PO PRN ×2 (14:41→20:31)
[2021-03-11] MEDS: Acetaminophen 325 MG TAB PO PRN (14:42)
[2021-03-11 17:06] LABS: Troponin I Less than 0.010 ng/mL (< 0.028)
[2021-03-11] MEDS ORDERED: Dextrose 5% in Water 1,000 ML IV PRN (17:52)
[2021-03-11] MEDS ORDERED: HumaLOG 300 UNITS/3 ML VIAL SC PRN (17:52)
[2021-03-11] MEDS ORDERED: Dextrose 50% Abboject 50 ML SYRINGE SLOW IVP PRN (17:52)
[2021-03-11] MEDS ORDERED: HYDROcodone/Acetaminophen 5/325 mg Tablet PO PRN (17:53)
[2021-03-11] MEDS: methylPREDNISolone Sod Succ 40 MG VIAL IVP SCH (18:04)
[2021-03-11] MEDS ORDERED: Ipratropium/Albuterol Sulfate 4 GM AER IH SCH (19:00)
[2021-03-11] MEDS: HYDROcodone/Acetaminophen 5/325 mg Tablet PO PRN (19:00)
[2021-03-11 19:30] VITALS: BMI 26.6
[2021-03-11] MEDS: Amitriptyline HCl 25 MG TAB PO SCH (20:02)
[2021-03-11] MEDS: Enoxaparin Sodium 40 MG/0.4 ML SYRINGE SC SCH (20:02)
[2021-03-11] MEDS: Mirtazapine 15 MG Soltab PO SCH (20:02)
[2021-03-11] MEDS: cloNIDine 0.1 MG TAB PO SCH (20:02)
[2021-03-11] MEDS: Lantus 1000 UNITS/10 ML VIAL SC SCH (20:03)
[2021-03-12] MEDS: Albuterol 200 PUFF (6.7GM INHALER) INH SCH ×4 (00:47→20:41)
[2021-03-12] MEDS: methylPREDNISolone Sod Succ 40 MG VIAL IVP SCH ×4 (00:47→18:00)
[2021-03-12 05:17] LABS: #Lymphocytes 0.8 thou/uL (1.20-3.40); #Monocytes 0.5 thou/uL (0.11-0.59); #Neutrophils 4.4 thou/uL (1.40-6.50); %Basophils 0.2 % (0.0-1.0); %Eosinophils 0.1 % (0.0-10.0); %Lymphocytes 13.3 % (21.0-51.0); %Monocytes 9.4 % (0.0-10.0); %Neutrophils 77.1 % (42.0-75.0); Hemoglobin 11.5 g/dL (12.0-16.0); Mean Corpuscular HGB CONC 32.9 g/dL (32.0-36.0); Mean Corpuscular Hemoglobin 30.9 pg (27.0-31.0); Mean Corpuscular Volume 94.1 fL (78.0-98.0); Mean Platelet Volume 7.9 fL (7.4-10.4); Platelet Count 257 thou/uL (130-400); RBC Distribution Width 11.9 % (11.5-14.5); Red Blood Cell (RBC) Count 3.72 mill/uL (4.20-5.40); White Blood Cell (WBC) Count 5.7 thou/uL (4.8-10.8)
[2021-03-12 05:40] LABS: Anion Gap 14 mmol/L (10-20); BUN (Urea Nitrogen) 13 mg/dL (9.8-20.1); Calc. Creatinine Clearance 79 mL/min (70-130); Calcium 10.3 mg/dL (7.8-10.44); Carbon Dioxide 22 mmol/L (23-31); Chloride 108 mmol/L (98-107); Glucose 252 mg/dL (80-115); Potassium 4.5 mmol/L (3.5-5.1); Sodium 139 mmol/L (136-145)
[2021-03-12] MEDS: HumaLOG 300 UNITS/3 ML VIAL SC PRN ×3 (06:09→17:59)
[2021-03-12] MEDS: HYDROcodone/Acetaminophen 5/325 mg Tablet PO PRN ×3 (06:16→17:58)
[2021-03-12] MEDS ORDERED: NIFEdipine XL 30 MG TAB PO SCH (09:00)
[2021-03-12] MEDS: Ascorbic Acid 500 mg Chewable Tablet PO SCH (09:06)
[2021-03-12] MEDS: Enoxaparin Sodium 40 MG/0.4 ML SYRINGE SC SCH (09:06)
[2021-03-12] MEDS: Gabapentin 300 MG CAP PO SCH (09:08)
[2021-03-12] MEDS: NIFEdipine XL 30 MG TAB PO SCH (09:08)
[2021-03-12] MEDS: Cholecalciferol (Vitamin D3) 400 UNITS TAB PO SCH (09:09)
[2021-03-12] MEDS: Aspirin 81 mg Enteric Coated Tablet PO SCH (09:09)
[2021-03-12] MEDS: cloNIDine 0.1 MG TAB PO SCH (09:09)
[2021-03-12] MEDS: Zinc Sulfate 220 MG CAP PO SCH (09:09)
[2021-03-12] MEDS: guaiFENesin/Codeine 200 mg/20 mg 10 ml Cup PO PRN (16:30)
[2021-03-12] MEDS: Azithromycin 500 MG in Sodium Chloride 0.9% 250 ML 250 ML IVPB SCH (18:41)
[2021-03-12] MEDS: Mirtazapine 15 MG Soltab PO SCH (20:41)
[2021-03-12] MEDS: Melatonin 3 MG TAB PO PRN (20:41)
[2021-03-12] MEDS: Amitriptyline HCl 25 MG TAB PO SCH (20:41)
[2021-03-12] MEDS: cloNIDine 0.2 MG TAB PO SCH (20:41)
[2021-03-12] MEDS: Lantus 1000 UNITS/10 ML VIAL SC SCH (20:43)
[2021-03-13] MEDS: methylPREDNISolone Sod Succ 40 MG VIAL IVP SCH ×4 (00:59→18:10)
[2021-03-13] MEDS: Albuterol 200 PUFF (6.7GM INHALER) INH SCH ×4 (00:59→19:00)
[2021-03-13] MEDS: hydrALAZINE 20 MG/ML VIAL SLOW IVP PRN ×2 (04:17→15:35)
[2021-03-13] MEDS: guaiFENesin/Codeine 200 mg/20 mg 10 ml Cup PO PRN ×2 (04:18→09:15)
[2021-03-13] MEDS: Acetaminophen 325 MG TAB PO PRN (04:18)
[2021-03-13 04:41] LABS: #Lymphocytes 0.9 thou/uL (1.20-3.40); #Monocytes 1.2 thou/uL (0.11-0.59); #Neutrophils 12.4 thou/uL (1.40-6.50); %Eosinophils 0.2 % (0.0-10.0); %Lymphocytes 6.5 % (21.0-51.0); %Monocytes 7.9 % (0.0-10.0); %Neutrophils 85.5 % (42.0-75.0); Hemoglobin 11.4 g/dL (12.0-16.0); Mean Corpuscular HGB CONC 31.9 g/dL (32.0-36.0); Mean Corpuscular Hemoglobin 30.2 pg (27.0-31.0); Mean Corpuscular Volume 94.8 fL (78.0-98.0); Mean Platelet Volume 8.1 fL (7.4-10.4); Platelet Count 264 thou/uL (130-400); RBC Distribution Width 11.9 % (11.5-14.5); Red Blood Cell (RBC) Count 3.78 mill/uL (4.20-5.40); White Blood Cell (WBC) Count 14.5 thou/uL (4.8-10.8)
[2021-03-13 05:03] LABS: Anion Gap 14 mmol/L (10-20); BUN (Urea Nitrogen) 18 mg/dL (9.8-20.1); Calc. Creatinine Clearance 79 mL/min (70-130); Calcium 10.1 mg/dL (7.8-10.44); Carbon Dioxide 22 mmol/L (23-31); Chloride 109 mmol/L (98-107); Glucose 226 mg/dL (80-115); Potassium 4.4 mmol/L (3.5-5.1); Sodium 141 mmol/L (136-145)
[2021-03-13] MEDS: HumaLOG 300 UNITS/3 ML VIAL SC PRN ×2 (06:42→12:44)
[2021-03-13] MEDS: Ascorbic Acid 500 mg Chewable Tablet PO SCH (08:49)
[2021-03-13] MEDS: Zinc Sulfate 220 MG CAP PO SCH (08:50)
[2021-03-13] MEDS: NIFEdipine XL 30 MG TAB PO SCH (08:50)
[2021-03-13] MEDS: Aspirin 81 mg Enteric Coated Tablet PO SCH (08:50)
[2021-03-13] MEDS: cloNIDine 0.2 MG TAB PO SCH ×2 (08:50→21:40)
[2021-03-13] MEDS: Gabapentin 300 MG CAP PO SCH (08:50)
[2021-03-13] MEDS: Cholecalciferol (Vitamin D3) 400 UNITS TAB PO SCH (08:50)
[2021-03-13] MEDS: Enoxaparin Sodium 40 MG/0.4 ML SYRINGE SC SCH (08:51)
[2021-03-13] MEDS: HYDROcodone/Acetaminophen 5/325 mg Tablet PO PRN ×2 (09:15→21:43)
[2021-03-13] MEDS ORDERED: NIFEdipine XL 60 MG TAB PO SCH (15:00)
[2021-03-13] MEDS: hydrALAZINE 25 MG TAB PO SCH ×2 (18:11→21:41)
[2021-03-13] MEDS: Azithromycin 500 MG in Sodium Chloride 0.9% 250 ML 250 ML IVPB SCH (18:11)
[2021-03-13] MEDS ORDERED: Promethazine HCl 25 MG in Sodium Chloride 0.9% 50 ML IVPB PRN (18:34)
[2021-03-13] MEDS: Lantus 1000 UNITS/10 ML VIAL SC SCH (21:40)
[2021-03-13] MEDS: Mirtazapine 15 MG Soltab PO SCH (21:41)
[2021-03-13] MEDS: Melatonin 3 MG TAB PO PRN (21:41)
[2021-03-13] MEDS: Amitriptyline HCl 25 MG TAB PO SCH (21:41)
[2021-03-13] MEDS ORDERED: Non-Formulary Item 1 EACH (Promethazine/Dextromethorphan [Promethazine-Dm 6.25-15 Mg/5ml] PO PRN (22:14)
[2021-03-13] MEDS ORDERED: Promethazine HCl 6.25 MG/5 ML Syrup PO PRN (22:23)
[2021-03-13] MEDS ORDERED: Dextromethorphan Polistirex 30 MG/5 ML (89 ML BOTTLE) PO PRN (22:25)
[2021-03-14 00:14] LABS: Troponin I Less than 0.010 ng/mL (< 0.028)
[2021-03-14] MEDS: Albuterol 200 PUFF (6.7GM INHALER) INH SCH ×2 (01:00→06:43)
[2021-03-14 05:33] LABS: Anion Gap 11 mmol/L (10-20); BUN (Urea Nitrogen) 23 mg/dL (9.8-20.1); Calc. Creatinine Clearance 82 mL/min (70-130); Calcium 10.2 mg/dL (7.8-10.44); Carbon Dioxide 24 mmol/L (23-31); Chloride 109 mmol/L (98-107); Glucose 114 mg/dL (80-115); Potassium 4.1 mmol/L (3.5-5.1); Sodium 140 mmol/L (136-145)
[2021-03-14 05:34] LABS: Band 3 % (5-11); Hemoglobin 11.7 g/dL (12.0-16.0); Hypochromia SLIGHT = 6-15 cells (100X) (0-5/hpf); Lymphocytes 23 % (21-51); MDiff Complete? YES; Mean Corpuscular HGB CONC 33.2 g/dL (32.0-36.0); Mean Corpuscular Hemoglobin 31.2 pg (27.0-31.0); Mean Corpuscular Volume 93.9 fL (78.0-98.0); Mean Platelet Volume 8.1 fL (7.4-10.4); Monocytes 8 % (0-10); Neutrophil 66 % (42-75); Platelet Count 254 thou/uL (130-400); Platelet Morphology Comment Appears Adequate; RBC Distribution Width 11.9 % (11.5-14.5); Red Blood Cell (RBC) Count 3.75 mill/uL (4.20-5.40); White Blood Cell (WBC) Count 20.7 thou/uL (4.8-10.8)
[2021-03-14] MEDS ORDERED: predniSONE 20 MG TAB PO SCH (08:00)
[2021-03-14] MEDS ORDERED: NIFEdipine XL 90 MG TAB PO SCH (09:00)
[2021-03-14] MEDS: Cholecalciferol (Vitamin D3) 400 UNITS TAB PO SCH (09:37)
[2021-03-14] MEDS: Aspirin 81 mg Enteric Coated Tablet PO SCH (09:37)
[2021-03-14] MEDS: Enoxaparin Sodium 40 MG/0.4 ML SYRINGE SC SCH (09:37)
[2021-03-14] MEDS: Ascorbic Acid 500 mg Chewable Tablet PO SCH (09:37)
[2021-03-14] MEDS: cloNIDine 0.2 MG TAB PO SCH (09:37)
[2021-03-14] MEDS: hydrALAZINE 25 MG TAB PO SCH (09:38)
[2021-03-14] MEDS: Zinc Sulfate 220 MG CAP PO SCH (09:38)
[2021-03-14] MEDS: Gabapentin 300 MG CAP PO SCH (09:38)
[2021-03-14 09:56] VITALS: TEMP 98.1
[2021-03-14 13:17] VITALS: BP 145/61
== END 2021-03-14 12:50 | disposition home or self-care (01) | DRG 178 ==
LOC: ERS 08:22 → 2SW 12:10 → OBSVTOIN 03-13 12:29
PROVIDERS: ADMIT Hospitalist; ATTEND Internal Medicine
PROC: 8E0ZXY6 Isolation (ICD-10-PCS; principal; 2021-03-13)
DX: U07.1 COVID-19 (principal); J45.901 Unspecified asthma with (acute) exacerbation; F32.0 Major depressive disorder, single episode, mild; I10 Essential (primary) hypertension; E10.9 Type 1 diabetes mellitus without complications; K21.9 Gastro-esophageal reflux disease without esophagitis; R07.89 Other chest pain; E78.5 Hyperlipidemia, unspecified; Z88.0 Allergy status to penicillin; Z79.899 Other long term (current) drug therapy; Z79.4 Long term (current) use of insulin; Z90.49 Acquired absence of other specified parts of digestive tract; Z90.710 Acquired absence of both cervix and uterus
CPT/HCPCS: 36415; 36416; 71045; 80048; 80053; 82728; 84484; 85025; 85379; 86140; 93005; 93010; 94640; 96372; 96375; 96376; G0378; J0360; J0456; J1650; J1815; J2920; J3475; J3490; J7050; J7512; J7620; M0243; Q0244; U0002

== ENCOUNTER 2021-04-02 10:25 | Emergency (ER) | payer MEDICARE, MEDICAID ==
[2021-04-02] MEDS ORDERED: Lidocaine 1% w/Epinephrine 1:100K 20 ML VIAL ONE (11:42)
== END 2021-04-02 12:28 | disposition home or self-care (01) ==
LOC: ERS 10:25
DX: S41.112A Laceration without foreign body of left upper arm, initial encounter (principal); W25.XXXA Contact with sharp glass, initial encounter; E10.9 Type 1 diabetes mellitus without complications; I10 Essential (primary) hypertension; J45.909 Unspecified asthma, uncomplicated
CPT/HCPCS: 12002

== ENCOUNTER 2021-10-05 09:55 | Outpatient (CLI) | payer MEDICARE, MEDICAID | END 2021-10-05 09:56 | disposition home or self-care (01) | LOC: BICCT 09:55 | PROVIDERS: ATTEND Neurological Surgery | DX: M54.50 Low back pain, unspecified (principal); M51.36 Other intervertebral disc degeneration, lumbar region; M48.061 Spinal stenosis, lumbar region without neurogenic claudication; Z98.890 Other specified postprocedural states | CPT/HCPCS: 72131 ==

== ENCOUNTER 2022-03-27 08:30 | Emergency (ER) | payer OTHER ==
[2022-03-27] MEDS ORDERED: methylPREDNISolone Sod Succ/PF 125 MG/2 ML VIAL ONE (09:13)
[2022-03-27 09:39] LABS: #Basophils 0.1 thou/uL (0.0-0.2); #Eosinphils 0.1 thou/uL (0.0-0.7); #Lymphocytes 2.2 thou/uL (1.20-3.40); %Basophils 0.5 % (0.0-1.0); %Eosinophils 0.8 % (0.0-10.0); %Monocytes 9.8 % (0.0-10.0); %Neutrophils 67.9 % (42.0-75.0); Hemoglobin 11.7 g/dL (12.0-16.0); Mean Corpuscular Volume 93.6 fl (78.0-98.0); Mean Platelet Volume 8.5 fL (7.4-10.4); Platelet Count 253 10x3/uL (130-400); RBC Distribution Width 11.2 % (11.5-14.5); Red Blood Cell (RBC) Count 3.91 mill/uL (4.20-5.40); White Blood Cell (WBC) Count 10.2 10x3/uL (4.8-10.8)
[2022-03-27 09:42] LABS: SARS-CoV-2 NAA Rapid Test Not Detected (NotDetected)
[2022-03-27 09:59] LABS: ALT (SGPT) 17 U/L (8-55); AST (SGOT) 16 U/L (5-34); Albumin 4.2 g/dL (3.4-4.8); Alkaline Phosphatase 122 U/L (40-110); Anion Gap 13 mmol/L (10-20); BUN (Urea Nitrogen) 14 mg/dL (9.8-20.1); Bilirubin, Total 0.4 mg/dL (0.2-1.2); Calc. Creatinine Clearance 0 mL/min (70-130); Calcium 9.9 mg/dL (7.8-10.44); Carbon Dioxide 26 mmol/L (23-31); Chloride 106 mmol/L (98-107); Estimated GFR 75; Globulin 3.7 g/dL (2.4-3.5); Glucose 152 mg/dL (80-115); Protein, Total 7.9 g/dL (5.8-8.1); Sodium 141 mmol/L (136-145)
== END 2022-03-27 16:30 | disposition home or self-care (01) ==
LOC: ERS 08:30
DX: J44.1 Chronic obstructive pulmonary disease with (acute) exacerbation (principal); E10.9 Type 1 diabetes mellitus without complications; Z20.822 Contact with and (suspected) exposure to COVID-19
CPT/HCPCS: 0240U; 71045; 80053; 83880; 84484; 85025; 93005; 94640; 94760; 96374; J2930

== ENCOUNTER 2022-06-12 11:02 | Emergency (ER) | payer OTHER, MEDICAID ==
[~2022-06-12 11:02] MED LIST: Iopamidol-370 76% 500 ML 1 ML ONE
[2022-06-12 11:31] LABS: #Eosinphils 0.1 thou/uL (0.0-0.7); #Lymphocytes 1.1 thou/uL (1.20-3.40); #Monocytes 1.2 thou/uL (0.11-0.59); %Basophils 0.4 % (0.0-1.0); %Eosinophils 0.6 % (0.0-10.0); %Lymphocytes 9.5 % (21.0-51.0); %Monocytes 10.3 % (0.0-10.0); %Neutrophils 79.2 % (42.0-75.0); Hemoglobin 11.5 g/dL (12.0-16.0); Mean Corpuscular HGB CONC 33.7 g/dL (32.0-36.0); Mean Corpuscular Hemoglobin 31.1 pg (27.0-31.0); Mean Corpuscular Volume 92.3 fl (78.0-98.0); Mean Platelet Volume 8.2 fL (7.4-10.4); Platelet Count 223 10x3/uL (130-400); RBC Distribution Width 11.3 % (11.5-14.5); White Blood Cell (WBC) Count 11.3 10x3/uL (4.8-10.8)
[2022-06-12 11:43] LABS: ALT (SGPT) 16 U/L (8-55); AST (SGOT) 24 U/L (5-34); Albumin 4.3 g/dL (3.4-4.8); Alkaline Phosphatase 123 U/L (40-110); Anion Gap 15 mmol/L (10-20); BUN (Urea Nitrogen) 11 mg/dL (9.8-20.1); Bilirubin, Total 0.4 mg/dL (0.2-1.2); Calc. Creatinine Clearance 0 mL/min (70-130); Calcium 9.7 mg/dL (7.8-10.44); Carbon Dioxide 26 mmol/L (23-31); Chloride 105 mmol/L (98-107); Estimated GFR 73; Glucose 143 mg/dL (80-115); Potassium 4.3 mmol/L (3.5-5.1); Protein, Total 7.3 g/dL (5.8-8.1); Sodium 142 mmol/L (136-145)
[2022-06-12 14:20] LABS: SARS-CoV-2 NAA Rapid Test DETECTED (NotDetected)
[2022-06-12 14:34] LABS: Lactic Acid 2.2 mmol/L (0.5-2.2)
[2022-06-12] MEDS ORDERED: methylPREDNISolone Sod Succ/PF 125 MG/2 ML VIAL ONE (14:49)
== END 2022-06-12 17:16 | disposition home or self-care (01) ==
LOC: ERS 11:02
DX: U07.1 COVID-19 (principal); R07.89 Other chest pain; E10.9 Type 1 diabetes mellitus without complications; I10 Essential (primary) hypertension
CPT/HCPCS: 0240U; 71045; 71275; 80053; 83605; 84484; 85025; 85379; 93005; 36415; 96374; J2930; Q9967

== ENCOUNTER 2022-10-16 11:31 | Outpatient (CLI) | payer OTHER, MEDICAID | END 2022-10-16 11:32 | disposition home or self-care (01) | LOC: BICMAMMO 11:31 | PROVIDERS: ATTEND Family Medicine | DX: Z12.31 Encounter for screening mammogram for malignant neoplasm of breast (principal) | CPT/HCPCS: 77063; 77067 ==

== ENCOUNTER 2023-01-07 13:16 | Emergency (ER) | payer OTHER | END 2023-01-07 15:19 | disposition left against medical advice (07) | LOC: ERS 13:16 | DX: Z53.21 Procedure and treatment not carried out due to patient leaving prior to being seen by health care provider (principal) ==

== ENCOUNTER 2023-01-08 09:04 | Emergency (ER) | payer OTHER | END 2023-01-08 10:15 | disposition home or self-care (01) | LOC: ERS 09:04 | DX: M94.0 Chondrocostal junction syndrome [Tietze] (principal); E11.9 Type 2 diabetes mellitus without complications; I10 Essential (primary) hypertension; K21.9 Gastro-esophageal reflux disease without esophagitis; Z79.899 Other long term (current) drug therapy | CPT/HCPCS: 99283 ==

== ENCOUNTER 2023-02-18 10:31 | Outpatient (CLI) | payer OTHER, MEDICAID | END 2023-02-18 10:32 | disposition home or self-care (01) | LOC: MRI 10:31 | PROVIDERS: ATTEND Family Medicine | DX: M54.17 Radiculopathy, lumbosacral region (principal); M47.816 Spondylosis without myelopathy or radiculopathy, lumbar region; Z98.890 Other specified postprocedural states | CPT/HCPCS: 72148 ==

== ENCOUNTER 2024-06-21 18:20 | Emergency (ER) | payer OTHER ==
[2024-06-21] MEDS ORDERED: Dexamethasone 10 MG/ML VIAL ONE ×2 (21:46)
[2024-06-21] MEDS ORDERED: cloNIDine 0.1 MG TAB ONE (21:46)
[2024-06-21] MEDS ORDERED: Ipratropium/Albuterol 3 ML NEB ONE (21:46)
== END 2024-06-21 21:58 | disposition home or self-care (01) ==
LOC: ERS 18:20
DX: J44.1 Chronic obstructive pulmonary disease with (acute) exacerbation (principal); I10 Essential (primary) hypertension; E78.5 Hyperlipidemia, unspecified; E10.9 Type 1 diabetes mellitus without complications; Z79.899 Other long term (current) drug therapy
CPT/HCPCS: 71046; 87428; 93005; J1100; 96372; J7620

== ENCOUNTER 2024-12-10 05:44 | Day surgery (SDC) | payer OTHER, MEDICAID ==
[2024-11-26 09:06] VITALS: BMI 30.2
[2024-12-10] MEDS ORDERED: Thrombin 5000 UNITS/5 ML VIAL ONE (06:12)
[2024-12-10] MEDS ORDERED: LevoFLOXacin D5W 500 mg (100 mL) BAG ONE (06:38)
[2024-12-10] MEDS ORDERED: Famotidine/PF 20 mg/2ml Vial ONE (06:39)
[2024-12-10] MEDS ORDERED: PROPOFOL 20 ML ONE (06:47)
[2024-12-10] MEDS ORDERED: fentaNYL PF 100 MCG/2 ML SYRINGE ONE ×2 (06:47→07:31)
[2024-12-10] MEDS ORDERED: Lidocaine 1% PF 5 ML VIAL ONE (06:47)
[2024-12-10] MEDS ORDERED: Ondansetron PF 4 MG/2 ML Vial ONE ×2 (06:47→09:38)
[2024-12-10] MEDS ORDERED: Rocuronium Bromide 10 MG/ML (10ML VIAL) ONE (06:47)
[2024-12-10] MEDS ORDERED: Lidocaine 2% 6 ML (Jelly) SYR ONE (06:50)
[2024-12-10] MEDS ORDERED: PHENYLEPHRINE-NS 100 MCG/ML 10 ML SYRINGE ONE (06:52)
[2024-12-10] MEDS ORDERED: Glycopyrrolate 0.2 MG/ML 5 ML SYRINGE ONE (06:52)
[2024-12-10] MEDS ORDERED: HYDROmorphone 2 MG/ML VIAL ONE (06:55)
[2024-12-10 06:58] LABS: Anion Gap 17 mmol/L (10-20); BUN (Urea Nitrogen) 12 mg/dL (9.8-20.1); Calc. Creatinine Clearance 72 mL/min (70-130); Calcium 9.2 mg/dL (7.8-10.44); Carbon Dioxide 25 mmol/L (23-31); Chloride 107 mmol/L (98-107); Glucose 118 mg/dL (80-115); Potassium 3.9 mmol/L (3.5-5.1); Sodium 145 mmol/L (136-145)
[2024-12-10] MEDS ORDERED: SUGAMMADEX SODIUM 200 MG/2 ML VIAL ONE (08:14)
[2024-12-10] MEDS ORDERED: Albuterol HFA (OR) 200 PUFF INH ONE (08:33)
[2024-12-10] MEDS ORDERED: HYDROcodone/Acetaminophen 5/325 mg Tablet ONE (10:45)
== END 2024-12-10 11:00 | disposition home or self-care (01) ==
LOC: SDC 05:44
PROVIDERS: ATTEND Neurological Surgery
PROC: 01NB0ZZ Release Lumbar Nerve, Open Approach (ICD-10-PCS; principal; 2024-12-10)
DX: M54.16 Radiculopathy, lumbar region (principal); I10 Essential (primary) hypertension; E11.9 Type 2 diabetes mellitus without complications; Z96.659 Presence of unspecified artificial knee joint; Z90.710 Acquired absence of both cervix and uterus; Z88.0 Allergy status to penicillin
CPT/HCPCS: 63047; 80048; J0169; J0665; J1100; J1308; J1956; J2405; J2704; J3010; J3490; C1713; J1171